=== PATIENT | female | born 1950 | race Caucasian/White ===

== ENCOUNTER → 2019-02-20 | Outpatient (CLI) | payer MEDICARE | END | disposition home or self-care (01) | LOC: LABWHC1 11:48 | PROVIDERS: ATTEND Physician Assistant | DX: M25.532 Pain in left wrist (principal) | CPT/HCPCS: 36415; 82306 ==

== ENCOUNTER → 2019-12-04 | Outpatient (CLI) | payer MEDICARE ==
--- NOTE | 2019-12-05 04:03 | MR ---
EXAMINATION TYPE: MR cervical spine wo con DATE OF EXAM: 12/04/2019 COMPARISON: None HISTORY: Neck pain, tingling in left arm. Multiplanar multiecho imaging of the cervical spine was performed without contrast. There is narrowing of disc spaces from C3 to C7 with spurring of the endplates. There is no compressi on fracture. There is posterior small disc herniations from C3 to C7. There is multilevel cervical sp inal stenosis. Canal measures 6 mm at C4-5 and C5-6. The canal measures 6.5 mm at C6-7. The canal is 8 mm at C3-4. There is no evidence of edema in the cervical spinal cord. The brainstem is intact. The re is slight straightening of the cervical spine. There is no evidence of focal bone destruction. The re is no cervical paraspinal mass. IMPRESSION: Multilevel degenerative disc space narrowing and posterior cervical disc herniation and spur formatio n. Multilevel spinal stenosis as above. No fracture seen.
== END | disposition home or self-care (01) ==
LOC: RADMRIMAIN 19:01
PROVIDERS: ATTEND Internal Medicine
DX: M48.02 Spinal stenosis, cervical region (principal); M50.20 Other cervical disc displacement, unspecified cervical region
CPT/HCPCS: 72141

== ENCOUNTER → 2020-02-01 | Outpatient (CLI) | payer MEDICARE ==
[2020-02-01 13:59] VITALS: BP 123/83; PULSE 97; RESP 16; TEMP 98
--- NOTE | 2020-02-01 14:01 | P.PAINCN ---
History of Present Illness - Reason for Consult Consult date: 02/01/20 - History of Present Illness This is 69 years old female with a two-month history of severe neck pain with radiation to the left upper extremity associated with numbness and tingling sensation, she denies any initiating event and she reported that the pain and the numbness is constant and increases with any neck movement, interfere with the quality of life, she denies any fever or night sweats, she feels some weakness in her left upper extremity, she denies any change in the bowel movements or urination, any neck movement increased intensity of the pain, she reported that most of the pain is located on the left side of the cervical spine and radiated to the left upper extremity Past Medical History Past Medical History: GERD/Reflux, Osteoarthritis (OA), Sleep Apnea/CPAP/BIPAP Additional Past Medical History / Comment(s): Irregular heartbeat. CPAP use. Varicose veins. Herniated discs C3-C7. History of Any Multi-Drug Resistant Organisms: None Reported Past Surgical History: Appendectomy, Back Surgery, Hysterectomy, Tonsillectomy Additional Past Surgical History / Comment(s): Varicose veins procedure, bilateral rotator cuff repair, spinal surgery of L3-4 and L4-5, bilateral cataract surgery. Past Anesthesia/Blood Transfusion Reactions: No Reported Reaction Past Psychological History: Anxiety Smoking Status: Former smoker Past Alcohol Use History: Occasional Additional Past Alcohol Use History / Comment(s): Smoked on and off for 25 yrs, currently on Chantix. Past Drug Use History: None Reported - Past Family History Father Family Medical History: Cancer Additional Family Medical History / Comment(s): Lung Cancer. Mother Family Medical History: Cancer Additional Family Medical History / Comment(s): Lung Cancer. Medications and Allergies Home Medications Medication Instructions Recorded Confirmed Type Cetirizine HCl 10 mg PO DAILY 01/27/20 01/27/20 History Diltiazem HCl [Diltiazem HCl 24Hr 180 mg PO DAILY 01/27/20 01/27/20 History ER] Pantoprazole Sodium [Protonix] 20 mg PO DAILY 01/27/20 01/27/20 History Varenicline [Chantix Continuing 1 mg PO BID 01/27/20 01/27/20 History Pack] Allergies Allergy/AdvReac Type Severity Reaction Status Date / Time acetaminophen [From Percocet] Allergy Rash/Hives Verified 01/27/20 14:28 oxycodone [From Percocet] Allergy Rash/Hives Verified 01/27/20 14:28 Sulfa (Sulfonamide Allergy Rash/Hives Verified 01/27/20 14:27 Antibiotics) Physical Exam Physical Examinations : -Constitutiona : Cooperative , not in acute distress . -HEENT : nech : supple , no Lymphadenopathy , normal thyroid size . : eyes : no ptosis , no icterus, no photophobia . - neurologic : Cranial nerve II to XII intact , no focal neurological deffecit . -psychatric : alert , oriented X 3 , appropriate affect , intact judgment and insight . -Lymphatic : no Lymphadenopathy . - musculoskeltal : Cervical Spine motor stregnth in the deltoid and biceps, 5/5 right side , 4/5 Left side motor stregnth biceps and the wrist extensors 5/5 right side ,4/5 left side . motor stregnth in the triceps muscle . 5/5 Right side , 4/5 Left side deep tendon reflexes normal at the biceps , normal at Brachioradialis , normal at triceps. cervical facet loading test= Positive Bilaterally Spurling test= positive bilaterally. Neck distraction test= positive bilaterally. Delicia sign= positive bilaterally. Lumber spine moter stegnth lower extremities ,thigh and legs 5/5 Right side , 5/5 Left side Results Comments: MRI of the cervical spine multilevel cervical spinal stenosis multilevel cervical disc herniation Assessment and Plan Plan: Assessment and plan=1-cervical radiculopathy. 2-cervical herniated disc disease. 3-cervical degenerative disc disease. 4-cervical spondylosis with cervical facet arthropathy (as per physical examination ). And could benefit from cervical epidural steroid injection at C7-T1 (left paramedian approach ) Time with Patient: Greater than 30 PQRS Measure Charge Sheet Measure #130: Documentation of Current Meds in Medical Chart: Patient's medications documented in chart Measure #226: Tobacco Use: Screen & Cessation Intervention: Pt screened for tobacco use AND intervention given Measure #111: Pneumonia Vaccination: Pneumococcal vaccine administered or previously received Measure #47: Advance Care Plan: Advance care planning discussed & documented, pt chose/unable to give Measure #412: Opioid Treatment Agreement: No documentation of signed opioid treatment agreement Measure #408: Opioid Therapy Follow-up Evaluation: Patient had NO f/u eval minimum every 3 months during opioid therapy Measure #317: Preventitive Care & Scrn High Bld Press & F/U: Normal blood pressure, f/u not required Measure #128: Body Mass Index (BMI) Screening & Follow-up: BMI documented within normal parameters Measure #131: Pain Assessment & Follow-up: Pain positive & plan documented, Follow-up scheduled Measure #431: Unhealthy Alcohol Use Preventative Care & Scrn: Patient not identified as an unhealthy alcohol user PQRS Narrative: Pain Intensity [Neck] 4 Scale Used Numeric (1 - 10) Hx Alcohol Use (MH) Yes Home Medications: Ambulatory Orders Cetirizine HCl 10 mg PO DAILY 01/27/20 Diltiazem HCl [Diltiazem HCl 24Hr ER] 180 mg PO DAILY 01/27/20 Pantoprazole Sodium [Protonix] 20 mg PO DAILY 01/27/20 Varenicline [Chantix Continuing Pack] 1 mg PO BID 01/27/20
== END | disposition home or self-care (01) ==
LOC: PNWHC3 13:29
PROVIDERS: ATTEND Specialist
DX: M50.10 Cervical disc disorder with radiculopathy, unspecified cervical region (principal); M47.22 Other spondylosis with radiculopathy, cervical region; G47.33 Obstructive sleep apnea (adult) (pediatric); M19.90 Unspecified osteoarthritis, unspecified site; K21.9 Gastro-esophageal reflux disease without esophagitis; Z99.89 Dependence on other enabling machines and devices; Z79.891 Long term (current) use of opiate analgesic; Z79.899 Other long term (current) drug therapy; Z88.2 Allergy status to sulfonamides; Z88.5 Allergy status to narcotic agent; Z88.8 Allergy status to other drugs, medicaments and biological substances
CPT/HCPCS: 99211

== ENCOUNTER → 2020-08-24 | Outpatient (CLI) | payer MEDICARE ==
[2020-08-24 09:02] VITALS: BP 136/94; PULSE 93; RESP 18
--- NOTE | 2020-08-24 09:32 | P.PN ---
Subjective Progress Note Date: 08/24/20 This is follow up visit for this 70 years old female with most history of severe neck pain with radiation to the upper extremity associated with numbness and tingling sensation, pain when started used to be mainly on the left side but currently she is having pain and numbness on both sides, she denies any initiating event and she reported that the pain and the numbness is constant and increases with any neck movement, interfere with the quality of life, she denies any fever or night sweats, she feels some weakness in her left upper extremity, she denies any change in the bowel movements or urination, any neck movement increased intensity of the pain, she tried home exercises( stretching ) without any benefit, she tried chiropractics without any benefit, she tried ice and heat therapy without benefit and she tried medication Tylenol arthritis without any benefit dictating interfere with the quality of life Physical Examinations : -Constitutiona : Cooperative , not in acute distress . -HEENT : nech : supple , no Lymphadenopathy , normal thyroid size . : eyes : no ptosis , no icterus, no photophobia . - neurologic : Cranial nerve II to XII intact , no focal neurological deffecit . -psychatric : alert , oriented X 3 , appropriate affect , intact judgment and insight . -Lymphatic : no Lymphadenopathy . - musculoskeltal : Cervical Spine motor stregnth in the deltoid and biceps, 4/5 right side , 4/5 Left side motor stregnth biceps and the wrist extensors 4/5 right side ,4/5 left side . motor stregnth in the triceps muscle . 4/5 Right side , 4/5 Left side deep tendon reflexes normal at the biceps , normal at Brachioradialis , normal at triceps. cervical facet loading test= Positive Bilaterally Spurling test= positive bilaterally. Neck distraction test= positive bilaterally. Delicia sign= positive bilaterally. Lumber spine moter stegnth lower extremities ,thigh and legs 5/5 Right side , 5/5 Left side Results MRI of the cervical spine multilevel cervical spinal stenosis multilevel cervical disc herniation Assessment and plan=1-cervical radiculopathy. 2-cervical herniated disc disease. 3-cervical degenerative disc disease. 4-cervical spondylosis with cervical facet arthropathy (as per physical examination ). she could benefit from cervical epidural steroid injection at C6-7 OR C7-T1 PQRS Measure Charge Sheet Measure #130: Documentation of Current Meds in Medical Chart: Patient's medications documented in chart Measure #226: Tobacco Use: Screen & Cessation Intervention: Pt screened for tobacco use AND intervention given Measure #111: Pneumonia Vaccination: Pneumococcal vaccine administered or previously received Measure #47: Advance Care Plan: Advance care planning discussed & documented, pt chose/unable to give Measure #412: Opioid Treatment Agreement: No documentation of signed opioid treatment agreement Measure #408: Opioid Therapy Follow-up Evaluation: Patient had NO f/u eval minimum every 3 months during opioid therapy Measure #317: Preventitive Care & Scrn High Bld Press & F/U: Normal blood pressure, f/u not required Measure #128: Body Mass Index (BMI) Screening & Follow-up: BMI documented within normal parameters Measure #131: Pain Assessment & Follow-up: Pain positive & plan documented, Follow-up scheduled Measure #431: Unhealthy Alcohol Use Preventative Care & Scrn: Patient not identified as an unhealthy alcohol user PQRS Narrative: Objective - Vital Signs Vital signs: Vital Signs Temp Pulse 93 08/24/20 08:59 Resp 18 08/24/20 08:59 BP 136/94 08/24/20 08:59 Pulse Ox 97 08/24/20 08:59
== END ==
LOC: PNWHC3 08:50
PROVIDERS: ATTEND Specialist
DX: M50.10 Cervical disc disorder with radiculopathy, unspecified cervical region (principal); M47.22 Other spondylosis with radiculopathy, cervical region; M50.20 Other cervical disc displacement, unspecified cervical region; Z88.5 Allergy status to narcotic agent; Z88.2 Allergy status to sulfonamides
CPT/HCPCS: 99211

== ENCOUNTER 2020-09-20 10:03 | Day surgery (SDC) | payer MEDICARE ==
[2020-09-20 10:32] VITALS: RESP 16; TEMP 99.3
[2020-09-20] MEDS: LACTATED RINGERS 1,000 ML IV SCH ×2 (10:33→10:36)
[2020-09-20] MEDS ORDERED: MIDAZOLAM 2 MG/2 ML VIAL ONE (10:37)
[2020-09-20] MEDS ORDERED: DEXAMETHASONE SOD PHOSPHATE 10 MG/ML 1 ML VIAL ONE (10:37)
[2020-09-20] MEDS ORDERED: fentaNYL (PF) 50 MCG/ML 2 ML AMP ONE (10:37)
[2020-09-20] MEDS ORDERED: IOPAMIDOL M200 10 ML VIAL ONE (10:37)
--- NOTE | 2020-09-20 10:51 | P.PCN ---
Date of Procedure: 09/20/20 Surgeon: Edin Parr Pathology: none sent Condition: stable Disposition: PACU Description of Procedure: PROCEDURE 1. Cervical epidural steroid injection under fluoroscopic guidance, C7-T1 - Rt paramedian approach. 2. Cervical epidurogram. : PREOPERATIVE DIAGNOSIS: Cervical radiculopathy, cervical spondylosis without myelopathy POSTOPERATIVE DIAGNOSIS: : Same as above ANESTHESIA: Local anesthesia with 1% lidocaine and IV moderate conscious sedation with Versed and Fentanyl . EBL 0 PROCEDURE INDICATION: The patient with neck pain and radiculopathy unresponsive to conservative treatment consents for procedure. PROCEDURE DESCRIPTION / TECHNIQUE: The patient was seen and identified in the preoperative area. Risks, benefits, complications, including but not limited to infections ,bleeding , allergic reactions to the medications ,and not complete pain relief, and alternatives were discussed with the patient, the patient agreed to proceed with the procedure and signed the consent. Patient was taken to the OR and time out was completed. The patient was placed in the prone position on the procedure table. A pillow was placed under the patients chest to increase the flexion of the cervical spine . The cervical area was prepped and draped in the usual sterile fashion. Vital signs were closely monitored during the procedure. Conscious sedation was used during the procedure to decrease patients anxiety. Using anterior-posterior fluoroscopy, the C7-T1 interlaminar space was identified and the skin over this site was marked and then infiltrated with 1% lidocaine subcutaneously. Subsequently, a 20-gauge 3-1/2-inch Tuohy epidural needle was inserted and advanced toward the epidural space by means of loss of resistance to air technique and guided by AP and lateral fluoroscopy. The needle tip contacted the lamina of T1 vertebra first, then it was walked off bone and into the epidural space using the loss of to air and fluoroscopic guidance to identify the epidural space. The correct needle position in the epidural space was verified with the injection of 1 mL of the water soluble contrast dye Isovue and observing an excellent epidurogram with the epidural spread of the dye, after negative aspiration for blood and CSF and in the absence of paresthesias. Again after negative aspiration, 20 mg of Decadron was injected and a washout of epidurogram was seen. Needle was withdrawn intact, skin was cleansed, and bandages were applied. A copy of the needle placement picture was saved to the fluoroscopy machine.
[2020-09-20] MEDS ORDERED: IV FLUID CONTINUATION 1,000 ML IV ONE (10:54)
[2020-09-20 11:17] VITALS: BP 141/90; PULSE 85
--- NOTE | 2020-09-20 12:17 | FL ---
Fluoroscopy INDICATION: Pain FINDINGS: Fluoroscopy time: 5 seconds. Images obtained: 1. IMPRESSIONS: 1. Documentation of fluoroscopy.
== END 2020-09-20 11:35 | disposition home or self-care (01) ==
LOC: ORPAIN 10:03
PROVIDERS: ATTEND Anesthesiology
DX: M47.22 Other spondylosis with radiculopathy, cervical region (principal); F41.9 Anxiety disorder, unspecified
CPT/HCPCS: 62321; J2250; J1100; J3010; Q9966; 99152

== ENCOUNTER 2020-11-12 08:39 | Emergency (ER) | payer MEDICARE ==
[2020-11-12 09:01] VITALS: TEMP 98.2
[2020-11-12] MEDS ORDERED: SODIUM CHLORIDE 0.9% 1,000 ML IV STA (09:34)
[2020-11-12] MEDS ORDERED: LORazepam 1 MG TAB PO STA (09:35)
[2020-11-12] MEDS ORDERED: MECLIZINE 12.5 MG TAB PO STA (09:37)
[2020-11-12 10:33] LABS: Basophils % (A) 0 %; Eosinophils # (A) 0.1 k/uL (0-0.7); Eosinophils % (A) 2 %; HCT 43.6 % (34.0-46.0); HGB 13.7 gm/dL (11.4-16.0); Lymphocytes # (A) 1.4 k/uL (1.0-4.8); Lymphocytes % (A) 21 %; MCH 28.2 pg (25.0-35.0); MCHC 31.4 g/dL (31.0-37.0); MCV 89.9 fL (80.0-100.0); Mean Platelet Volume 8.1; Monocytes # (A) 0.5 k/uL (0-1.0); Monocytes % (A) 6 %; Neutrophils # (A) 4.7 k/uL (1.3-7.7); Neutrophils % (A) 68 %; Platelet Count 178 k/uL (150-450); RBC 4.85 m/uL (3.80-5.40); WBC 6.9 k/uL (3.8-10.6)
--- NOTE | 2020-11-12 10:39 | ED ---
General Adult HPI - General Chief complaint: Weakness Stated complaint: sent by pcp/syncope Time Seen by Provider: 11/12/20 09:05 Source: patient, RN notes reviewed Mode of arrival: ambulatory Limitations: no limitations - History of Present Illness Initial comments: 70-year-old female with a past medical history of GERD, cellulitis of the left leg, irregular heartbeat presents to the emergency room for lightheadedness. Patient states 4 days ago she was in her garage smoking with her friend. She started to get lightheaded and didn't feel well. She tried to walk into the house and passed out. When she woke up she was vomiting. States that she had diarrhea a few times. She continued to have diarrhea yesterday. She continued to be nauseous. She tried to call her doctor for an appointment yesterday but could not get in. She therefore went to the clinic today and they recommended she come to the emergency room for evaluation. Patient denies any chest pain. She was recently put on Lasix because of swelling in her feet and ankles. She does take diltiazem. Patient has no other complaints at this time including shortness of breath, chest pain, abdominal pain, nausea or vomiting, headache, or visual changes. - Related Data Home Medications Medication Instructions Recorded Confirmed Diltiazem HCl [Diltiazem HCl 24Hr 180 mg PO DAILY 01/27/20 11/12/20 ER] Pantoprazole Sodium [Protonix] 40 mg PO DAILY 01/27/20 11/12/20 Propranolol [Inderal] 20 mg PO TID PRN 02/17/20 11/12/20 Cetirizine HCl [Zyrtec] 10 mg PO DAILY 09/19/20 11/12/20 Ibuprofen [Motrin] 600 mg PO TID PRN 09/19/20 11/12/20 Montelukast [Singulair] 10 mg PO HS 09/19/20 11/12/20 Diphenox-Atrop 2.5-0.025 mg 1 tab PO Q4H PRN 11/12/20 11/12/20 [Lomotil] Fluticasone Nasal [place] [Flonase 1 spray EA NOSTRIL DAILY PRN 11/12/20 11/12/20 Nasal [place]] Furosemide [Lasix] 20 mg PO DAILY PRN 11/12/20 11/12/20 Hydrocortisone Cream 1 applic TOPICAL BID PRN 11/12/20 11/12/20 [Hydrocortisone 2.5% Cream] Allergies Allergy/AdvReac Type Severity Reaction Status Date / Time oxycodone [From Percocet] Allergy Rash/Hives Verified 11/12/20 10:32 Sulfa (Sulfonamide Allergy Rash/Hives Verified 11/12/20 10:32 Antibiotics) HISTAMINE Allergy Rash/Hives Uncoded 11/12/20 09:01 Review of Systems ROS Statement: Those systems with pertinent positive or pertinent negative responses have been documented in the HPI. ROS Other: All systems not noted in ROS Statement are negative. Past Medical History Past Medical History: GERD/Reflux, Musculoskeletal Disorder, Osteoarthritis (OA), Skin Disorder, Sleep Apnea/CPAP/BIPAP Additional Past Medical History / Comment(s): RECENT CELLULITIS OF LEFT LEG. Irregular heartbeat. CPAP use. Varicose veins. Herniated discs C3-C7. History of Any Multi-Drug Resistant Organisms: None Reported Past Surgical History: Appendectomy, Back Surgery, Hysterectomy, Tonsillectomy Additional Past Surgical History / Comment(s): Varicose veins procedurE. PAIN PROCEDURES. Bilateral rotator cuff repair. Spinal surgery of L3-4 and L4-5. Bilateral cataract surgery, STILL WEARS CONTACT IN RIGHT EYE. Past Anesthesia/Blood Transfusion Reactions: No Reported Reaction Past Psychological History: Anxiety Smoking Status: Current every day smoker Past Alcohol Use History: None Reported Past Drug Use History: None Reported - Past Family History Father Family Medical History: Cancer Additional Family Medical History / Comment(s): Lung Cancer. Mother Family Medical History: Cancer Additional Family Medical History / Comment(s): Lung Cancer. General Exam Limitations: no limitations Course Vital Signs 11/12/20 08:58 Temperature 98.2 F Pulse Rate 78 Respiratory 20 Rate Blood Pressure 143/91 O2 Sat by Pulse 99 Oximetry EKG Findings - EKG Comments: EKG Findings:: NSR, vent rate 78, UT int 158, QTc 451 Medical Decision Making - Medical Decision Making Those are stable. Patient is well-appearing. HPI and physical exam as documented. Again no chest pain or shortness of breath. Vitals unremarkable. No ischemic changes. CBC unremarkable. Mild hypokalemia noted on CMP, replaced orally. Urinalysis is negative. Garcia negative. CT brain shows no evidence for acute cranial hemorrhage. There are some incidental nonacute findings which were discussed with her. Chest x-ray is unremarkable. She is requesting discharge. Patient has an appointment with her primary care provider on Saturday and an echo scheduled for one week from now. She has good outpatient follow-up. She is not having any chest pain or breath. She will return here for any worsening symptoms. - Lab Data Result diagrams: 11/12/20 10:15 11/12/20 10:15 Lab Results 11/12/20 11/12/20 11/12/20 Range/Units 10:15 10:15 10:15 WBC 6.9 (3.8-10.6) k/uL RBC 4.85 (3.80-5.40) m/uL Hgb 13.7 (11.4-16.0) gm/dL Hct 43.6 (34.0-46.0) % MCV 89.9 (80.0-100.0) fL MCH 28.2 (25.0-35.0) pg MCHC 31.4 (31.0-37.0) g/dL RDW 14.0 (11.5-15.5) % Plt Count 178 (150-450) k/uL MPV 8.1 Neutrophils % 68 % Lymphocytes % 21 % Monocytes % 6 % Eosinophils % 2 % Basophils % 0 % Neutrophils # 4.7 (1.3-7.7) k/uL Lymphocytes # 1.4 (1.0-4.8) k/uL Monocytes # 0.5 (0-1.0) k/uL Eosinophils # 0.1 (0-0.7) k/uL Basophils # 0.0 (0-0.2) k/uL PT 9.4 (9.0-12.0) sec INR 0.9 (<1.2) APTT 22.4 (22.0-30.0) sec Sodium (137-145) mmol/L Potassium (3.5-5.1) mmol/L Chloride (98-107) mmol/L Carbon Dioxide (22-30) mmol/L Anion Gap mmol/L BUN (7-17) mg/dL Creatinine (0.52-1.04) mg/dL Est GFR (CKD-EPI)AfAm (>60 ml/min/1.73 sqM) Est GFR (CKD-EPI)NonAf (>60 ml/min/1.73 sqM) Glucose (74-99) mg/dL Calcium (8.4-10.2) mg/dL Magnesium (1.6-2.3) mg/dL Total Bilirubin (0.2-1.3) mg/dL AST (14-36) U/L ALT (4-34) U/L Alkaline Phosphatase (38-126) U/L Troponin I (0.000-0.034) ng/mL Total Protein (6.3-8.2) g/dL Albumin (3.5-5.0) g/dL Urine Color Yellow Urine Appearance Clear (Clear) Urine pH 7.0 (5.0-8.0) Ur Specific [place] 1.010 (1.001-1.035) Urine Protein Negative (Negative) Urine Glucose (UA) Negative (Negative) Urine Ketones Negative (Negative) Urine Blood Negative (Negative) Urine Nitrite Negative (Negative) Urine Bilirubin Negative (Negative) Urine Urobilinogen <2.0 (<2.0) mg/dL Ur Leukocyte Esterase Trace H (Negative) Urine RBC <1 (0-5) /hpf Urine WBC 1 (0-5) /hpf Ur Squamous Epith Cells 1 (0-4) /hpf Urine Mucus Occasional H (None) /hpf Coronavirus (PCR) (Not Detectd) 11/12/20 11/12/20 11/12/20 Range/Units 10:15 10:15 10:15 WBC (3.8-10.6) k/uL RBC (3.80-5.40) m/uL Hgb (11.4-16.0) gm/dL Hct (34.0-46.0) % MCV (80.0-100.0) fL MCH (25.0-35.0) pg MCHC (31.0-37.0) g/dL RDW (11.5-15.5) % Plt Count (150-450) k/uL MPV Neutrophils % % Lymphocytes % % Monocytes % % Eosinophils % % Basophils % % Neutrophils # (1.3-7.7) k/uL Lymphocytes # (1.0-4.8) k/uL Monocytes # (0-1.0) k/uL Eosinophils # (0-0.7) k/uL Basophils # (0-0.2) k/uL PT (9.0-12.0) sec INR (<1.2) APTT (22.0-30.0) sec Sodium 139 (137-145) mmol/L Potassium 3.2 L (3.5-5.1) mmol/L Chloride 105 (98-107) mmol/L Carbon Dioxide 28 (22-30) mmol/L Anion Gap 6 mmol/L BUN 8 (7-17) mg/dL Creatinine 0.42 L (0.52-1.04) mg/dL Est GFR (CKD-EPI)AfAm >90 (>60 ml/min/1.73 sqM) Est GFR (CKD-EPI)NonAf >90 (>60 ml/min/1.73 sqM) Glucose 109 H (74-99) mg/dL Calcium 9.8 (8.4-10.2) mg/dL Magnesium 1.8 (1.6-2.3) mg/dL Total Bilirubin 1.0 (0.2-1.3) mg/dL AST 48 H (14-36) U/L ALT 43 H (4-34) U/L Alkaline Phosphatase 111 (38-126) U/L Troponin I <0.012 (0.000-0.034) ng/mL Total Protein 6.7 (6.3-8.2) g/dL Albumin 4.0 (3.5-5.0) g/dL Urine Color Urine Appearance (Clear) Urine pH (5.0-8.0) Ur Specific [place] (1.001-1.035) Urine Protein (Negative) Urine Glucose (UA) (Negative) Urine Ketones (Negative) Urine Blood (Negative) Urine Nitrite (Negative) Urine Bilirubin (Negative) Urine Urobilinogen (<2.0) mg/dL Ur Leukocyte Esterase (Negative) Urine RBC (0-5) /hpf Urine WBC (0-5) /hpf Ur Squamous Epith Cells (0-4) /hpf Urine Mucus (None) /hpf Coronavirus (PCR) Not Detected (Not Detectd) Disposition Clinical Impression: Syncope, Nausea vomiting and diarrhea Disposition: HOME SELF-CARE Condition: Good Instructions (If sedation given, give patient instructions): Syncope (ED) Additional Instructions: Please follow-up with your doctor on Saturday as scheduled. Return to the emergency room for worsening symptoms. Is patient prescribed a controlled substance at d/c from ED?: No Referrals: Josh Alba MD [Primary Care Provider] - 1-2 days Time of Disposition: 12:19
[2020-11-12 10:40] LABS: Appearance,Urine Clear (Clear); Bilirubin,Urine Negative (Negative); Blood,Urine Negative (Negative); Color,Urine Yellow; Glucose,Urine (UA) Negative (Negative); Ketones,Urine Negative (Negative); Leukocyte Esterase,Urine Trace (Negative); Mucus,Urine Occasional /hpf; Nitrite,Urine Negative (Negative); Protein,Urine Negative (Negative); RBC,Urine <1 /hpf (0-5); Squamous Epithelial Cell,Urine 1 /hpf (0-4); Urobilinogen,Urine <2.0 mg/dL (<2.0); WBC,Urine 1 /hpf (0-5)
[2020-11-12 10:42] LABS: ALT 43 U/L (4-34); AST 48 U/L (14-36); African American GFR (CKD) >90 (>60 ml/min/1.73 sqM); Alkaline Phosphatase 111 U/L (38-126); Anion Gap 6 mmol/L; Blood Urea Nitrogen 8 mg/dL (7-17); Calcium 9.8 mg/dL (8.4-10.2); Carbon Dioxide 28 mmol/L (22-30); Chloride 105 mmol/L (98-107); Glucose 109 mg/dL (74-99); Magnesium 1.8 mg/dL (1.6-2.3); Non-African American GFR(CKD) >90 (>60 ml/min/1.73 sqM); Potassium 3.2 mmol/L (3.5-5.1); Sodium 139 mmol/L (137-145); Total Protein 6.7 g/dL (6.3-8.2)
[2020-11-12 10:43] LABS: INR 0.9 (<1.2); Partial Thromboplastin Time 22.4 sec (22.0-30.0); Prothrombin Time 9.4 sec (9.0-12.0)
[2020-11-12] MEDS ORDERED: POTASSIUM CHLORIDE ER 20 MEQ TAB.ER PO STA (10:58)
--- NOTE | 2020-11-12 11:32 | CT ---
EXAMINATION TYPE: CT brain [place] DATE OF EXAM: 11/12/2020 COMPARISON: None HISTORY: syncope TECHNIQUE: CT scan of the head without contrast CT DLP: 1257.7 mGycm Automated exposure control for dose reduction was used. FINDINGS: No evidence for acute intracranial hemorrhage, midline shift or mass effect. The askew-white matter di fferentiation is preserved. The CSF spaces and ventricles are normal in configuration. Tiny low atten uating lesion in the bilateral basal ganglia could BE related to artifact versus remote lacunar infar cts. No acute orbital, osseous or soft tissue abnormality. Paranasal sinuses and mastoid air cells are well aerated. Atherosclerotic calcifications are seen in the bilateral intracranial internal carotid arteries. There is straightening of the cervical spine curvature. The craniocervical junction is maintained. Ve rtebral body heights are normal. Posterior elements are acutely intact. Multilevel moderate severe narrowing of the intervertebral spaces and disc degenerative changes. Smal l disc osteophyte complex at C4-5, C5-6 and C6-7. Endplate degenerative changes throughout the cervic al spine seen. No significant soft tissue abnormality. The airways are patent. Lung apices demonstrate numerable bilateral tiny cysts and reticular nodular opacities. Parapharyngea l fat is maintained. Thyroid gland is not enlarged however appears heterogeneous. Normal atherosclero tic calcification seen in the arch of the aorta. IMPRESSION: NO EVIDENCE FOR ACUTE INTRACRANIAL HEMORRHAGE, MIDLINE SHIFT OR MASS EFFECT. NO EVIDENCE FOR ACUTE FRACTURE OR DISLOCATION THE CERVICAL SPINE. SEE BODY OF REPORT FOR INCIDENTALS REGARDING BRAIN, CERVICAL SPINE AND UPPER LUNGS.
--- NOTE | 2020-11-12 11:44 | XR ---
EXAMINATION TYPE: XR chest 2V DATE OF EXAM: 11/12/2020 COMPARISON: NONE HISTORY: 70 years Female. STUDY INDICATION GIVEN: Weakness . TECHNIQUE: Frontal and lateral chest radiographs. IMPRESSION: No focal airspace disease, pneumothorax or pleural effusion. Normal cardiomediastinal silhouette. No acute osseous abnormality. Surgical clips seen in the right upper quadrant. 3 densities over the right humerus could be related to prior surgery. Correlate with history.
[2020-11-12 12:45] VITALS: BP 184/96; PULSE 80; RESP 18
== END 2020-11-12 12:44 | disposition home or self-care (01) ==
LOC: EC 08:39
DX: R55 Syncope and collapse (principal); R11.2 Nausea with vomiting, unspecified; R19.7 Diarrhea, unspecified; K21.9 Gastro-esophageal reflux disease without esophagitis; M19.90 Unspecified osteoarthritis, unspecified site; F41.9 Anxiety disorder, unspecified; F17.200 Nicotine dependence, unspecified, uncomplicated; Z88.2 Allergy status to sulfonamides; Z88.5 Allergy status to narcotic agent; Z90.49 Acquired absence of other specified parts of digestive tract; Z90.710 Acquired absence of both cervix and uterus; Z90.89 Acquired absence of other organs; Z79.899 Other long term (current) drug therapy; Z20.822 Contact with and (suspected) exposure to COVID-19
CPT/HCPCS: 36415; 70450; 71046; 72125; 80053; 81001; 83735; 84484; 85025; 85610; 85730; 87635; 93005; 96360; 99284

== ENCOUNTER → 2021-08-04 | Outpatient (CLI) | payer MEDICARE ==
--- NOTE | 2021-08-04 11:25 | CTL ---
EXAMINATION TYPE: CT Low Dose Lung DATE OF EXAM ORDERED: 08/04/2021 HISTORY: 71 year-old female Z87.891, personal history of tobacco use. Lung cancer screening CT DLP: 53.[address] CTDI: 1.70 mGy Automated exposure control for dose reduction was used. SCREENING VISIT: Baseline COMPARISON: Radiograph 11/12/2020 TECHNIQUE: Low dose computed tomography scan was performed through the chest with coronal and sagitta l reconstructions. CT DIAGNOSTIC QUALITY: Satisfactory FINDINGS: Heart normal size without pericardial effusion. Aorta normal caliber with minimal atherosclerotic arch calcifications and conventional arch vessel br anching anatomy. Scattered nonenlarged mediastinal lymph nodes are present measuring up to 6 mm in the paratracheal re gion. There are bilateral breast implants are noted. Scattered mild to moderate centrilobular emphysema. Mild dependent hazy atelectasis bilaterally along with additional areas of strandy scarring or atelectasis. Minimal biapical pleural parenchymal scarr ing. No consolidation or pleural effusion. 4 mm subpleural pulmonary nodule periphery of the left lower lung, axial image 179. 3 mm peripheral left lower lobe pulmonary nodule, axial image 175. No consolidation or pleural effusion. Visualized upper abdomen shows cholecystectomy clips. Prominent ingested debris and fluid within the stomach. Bones: Suture anchors right humeral head. Rotator cuff surgery. Mild degenerative disc disease mid to lower thoracic spine. IMPRESSION: 1. COPD with mild to moderate emphysema and scattered areas of atelectasis or scarring. Recommend sm oking cessation. 2. A couple pulmonary nodules on the left measuring 4 mm and 3 mm on baseline screening. CT LUNG RAD AND CT CHEST RECOMMENDATION: Lung-Rad 2 Benign Appearance or Behavior: Continue annual sc reening with LDCT in 12 months. S Modifier (other clinically significant findings): None
== END | disposition home or self-care (01) ==
LOC: RADCTMAIN 07:03
PROVIDERS: ATTEND Family Medicine
DX: Z12.2 Encounter for screening for malignant neoplasm of respiratory organs (principal); J43.9 Emphysema, unspecified; R91.8 Other nonspecific abnormal finding of lung field; Z87.891 Personal history of nicotine dependence
CPT/HCPCS: 71271

== ENCOUNTER → 2022-10-02 | Outpatient (CLI) | payer MEDICARE ==
--- NOTE | 2022-10-03 00:36 | MR ---
EXAMINATION TYPE: MR cervical spine wo con DATE OF EXAM: 10/02/2022 INDICATION: Patient age: Female; 72 years old; Reason for study: M47.812 SPONDYLOSIS W/O MYELOPATHY OR RADICULOPATH; PHH. Neck pain COMPARISON: 12/04/2019. TECHNIQUE: Multi planar, multi sequence imaging was performed utilizing: T1-weighted, T2-weighted, an d turbo inversion recovery imaging of the cervical spine. IV Contrast: None FINDINGS: Alignment: The cervical vertebral bodies have preserved heights. Kyphosis of the curvature of the cer vical spine. Bones: Scattered Modic endplate changes with osteophytes and disc space narrowing. Multilevel degener ative disc disease is noted and most pronounced at the through C3 through C6 vertebral levels. Cord: The spinal cord is unremarkable with regards to their signal intensity and morphology. Discs: Multilevel disc desiccation is present. C2-C3: No significant disc pathology. The spinal canal is patent. Bilateral facet and uncovertebral joint arthropathy are present with mild bilateral neural foraminal stenosis. C3-C4: A disc osteophyte complex is present which minimally narrows the ventral subarachnoid space. Bilateral facet and uncovertebral joint arthropathy are present with severe bilateral neural foramin al stenosis. C4-C5: A disc osteophyte complex is present with mild to moderate spinal canal stenosis. Bilateral f acet and uncovertebral joint arthropathy are present with severe bilateral neural foraminal stenosis. C5-C6: A disc osteophyte complex is present with mild spinal canal stenosis. Bilateral facet and unc overtebral joint arthropathy are present with severe bilateral neural foraminal stenosis. C6-C7: A disc osteophyte complex is present with moderate to severe spinal canal stenosis. Bilateral facet and uncovertebral joint arthropathy are present with mild bilateral neural foraminal stenosis. C7-T1: No significant disc pathology. The spinal canal is patent. No neural foraminal stenosis. Other: None. IMPRESSION: Overall findings are similar to 2019. Multilevel degeneration changes worse at C6-C7 with moderate to severe spinal canal stenosis. There i s multilevel severe neural foraminal stenosis throughout spine is described above.
== END | disposition home or self-care (01) ==
LOC: RADMRIMAIN 18:17
PROVIDERS: ATTEND Physical Medicine & Rehabilitation
DX: M47.22 Other spondylosis with radiculopathy, cervical region (principal); M50.121 Cervical disc disorder at C4-C5 level with radiculopathy; M50.122 Cervical disc disorder at C5-C6 level with radiculopathy; M50.123 Cervical disc disorder at C6-C7 level with radiculopathy; M43.12 Spondylolisthesis, cervical region
CPT/HCPCS: 72141

== ENCOUNTER → 2022-10-12 | Outpatient (CLI) | payer MEDICARE ==
--- NOTE | 2022-10-12 14:42 | CTL ---
EXAMINATION TYPE: CT Low Dose Lung DATE OF EXAM ORDERED: 10/12/2022 HISTORY: . Lung cancer screening CT DLP: 59.[address] CTDI: 1.80 mGy Automated exposure control for dose reduction was used. SCREENING VISIT: Subsequent, first follow-up COMPARISON: 08/04/2021 TECHNIQUE: Low dose computed tomography scan was performed through the chest at 1 mm thick sections a nd reconstructed images in the coronal plane at [address] DIAGNOSTIC QUALITY: Satisfactory FINDINGS: LUNG NODULES: Present, detailed below: 1. Minimal pleural thickening may be along the anterior lateral left lung base. Series 4 image 213. T his may be smaller than comparison. 2. Previous left lateral lung field nodule is not identified. LUNGS: COPD: Severity: Mild Fibrosis: Severity: None Lymph nodes: None Other findings: None RIGHT PLEURAL SPACE: Effusion: None Calcification: None Thickening: None Pneumothorax: None LEFT PLEURAL SPACE: Effusion: None Calcification: None Thickening: None Pneumothorax: None HEART: Heart Size: Normal Coronary calcification: Minimal Pericardial effusion: None OTHER FINDINGS: Upper abdomen: Bony thorax: Normal Supraclavicular region: Normal Other: Ascending thoracic aorta at the level the main pulmonary artery measures 3.5 cm. The main pul monary artery at the bifurcation measures 3.1 cm. Bilateral breast prostheses are present. IMPRESSION: 1. No suspicious change in nodules. 2. No suspicious changes to suggest primary or metastatic disease. FOLLOW UP CT CHEST RECOMMENDATION: Follow-up low-dose CT chest [address] LUNG RAD: Lung-Rad 2 Benign Appearance or Behavior
== END | disposition home or self-care (01) ==
LOC: RADCTMAIN 06:12
PROVIDERS: ATTEND Family Medicine
DX: Z12.2 Encounter for screening for malignant neoplasm of respiratory organs (principal); R91.8 Other nonspecific abnormal finding of lung field
CPT/HCPCS: 71271

== ENCOUNTER → 2022-10-31 | Day surgery (SDC) | payer MEDICARE ==
[~2022-10-31] MED LIST: LACTATED RINGERS 1,000 ML IV SCH; LIDOCAINE 1% (10MG/ML) FOR IV START INTRADERMA PRN; LIDOCAINE 2% INJ 20 MG/ML (2 ML VIAL) ONE; PROPOFOL 10 MG/ML 20 ML VIAL IV ONE
[2022-10-31 07:18] VITALS: RESP 16; TEMP 97
--- NOTE | 2022-10-31 08:19 | P.PCN ---
Date of Procedure: 10/31/22 Procedure(s) Performed: Brief history: Patient is a pleasant 72-year-old white female scheduled for an elective upper endoscopy as well as colonoscopy as a part of evaluation of long-standing history of GERD/abdominal bloating and belching and screening for colon cancer Procedure performed: Esophagogastroduodenoscopy with biopsy Colonoscopy with biopsy Preoperative diagnosis: Long-standing history of GERD/abdominal bloating and belching Screening for colon cancer Anesthesia: MAC Procedure: After informed consent was obtained from the patient was brought into the endoscopy unit and IV sedation was administered by anesthesia under continuous monitoring. Initially upper endoscopy was done. The Olympus GF 160 video endoscope was inserted inserted into the mouth and esophagus intubated without any difficulty and was gradually advanced into the stomach and duodenum and carefully examined. The bulb and second part of the duodenum appeared normal. Biopsies were done from the duodenum to evaluate for Celiac disease. The scope was then withdrawn into the stomach adequately insufflated with air and upon careful examination the antrum had mild gastritis and biopsies were done from this area. Mucosa of the body, cardia and fundus appeared normal. The scope was then withdrawn into the esophagus. Small hiatal hernia noted. The GE junction was located at 36 cm to the incisors. It appeared irregular and there was a 5 mm tongue of Tate's appearing mucosa just proximal to the GE junction that was biopsied.. Rest of the esophagus appeared normal. Patient tolerated the procedure well. At this time the patient continued to remain sedation. Initial digital rectal examination was normal. Olympus CF 160 video colonoscope was then inserted into the rectum and gradually advanced to the cecum without any difficulty. Careful examination was performed as the scope was gradually being withdrawn. The prep was excellent. The cecum, appeared normal. In the Ascending colon there was a 3 mm polyp that was removed by cold biopsy. Rest of the ascending colon, transverse colon, descending colon, sigmoid colon and rectum appeared normal. In the rectum there were 2 polyps measuring 4 mm in size that was removed by cold biopsy. Retroflexion was performed in the rectum and no lesions were noted. Patient tolerated the procedure well. Impression: 1. 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 Colonoscopy revealed 3 mm ascending colon polyp and 4 mm 2 rectal polyps status post cold biopsy Recommendations: Findings of this examination were discussed with the patient as well as her fami ly. She was advised to follow with the biopsy results. If the biopsy result adenoma she can have a repeat colonoscopy in 5 years.
[2022-10-31 08:44] VITALS: BP 146/95; PULSE 84
== END ==
LOC: ORWHC2ENDO 06:59
PROVIDERS: ATTEND Internal Medicine Gastroenterology
DX: Z12.11 Encounter for screening for malignant neoplasm of colon (principal); K29.50 Unspecified chronic gastritis without bleeding; K21.9 Gastro-esophageal reflux disease without esophagitis; K44.9 Diaphragmatic hernia without obstruction or gangrene; K22.70 Barrett's esophagus without dysplasia; K62.1 Rectal polyp; D12.2 Benign neoplasm of ascending colon; D72.820 Lymphocytosis (symptomatic); G47.33 Obstructive sleep apnea (adult) (pediatric); Z88.2 Allergy status to sulfonamides; Z79.84 Long term (current) use of oral hypoglycemic drugs; Z98.890 Other specified postprocedural states; Z99.89 Dependence on other enabling machines and devices; Z87.891 Personal history of nicotine dependence; Z79.1 Long term (current) use of non-steroidal anti-inflammatories (NSAID); Z79.899 Other long term (current) drug therapy
CPT/HCPCS: 88305; 43239; J2704; J2001; G0105; 45380

== ENCOUNTER → 2022-11-01 | Outpatient (CLI) | payer MEDICARE ==
[2022-11-02 02:07] LABS: Gliadin AB IgA, Deaminated Negative (Negative); Gliadin AB IgA, Unit 1.3 U/mL; Gliadin AB IgG, Deaminated Negative (Negative); Gliadin AB IgG, Unit 1.2 U/mL
== END | disposition home or self-care (01) ==
LOC: LABWHC1 14:02
PROVIDERS: ATTEND Internal Medicine Gastroenterology
DX: K21.9 Gastro-esophageal reflux disease without esophagitis (principal)
CPT/HCPCS: 36415; 83516

== ENCOUNTER 2024-08-16 11:40 | Inpatient (IN) | payer MEDICARE ==
--- NOTE | 2024-08-16 12:50 | ED ---
General Adult HPI - General Chief complaint: Shortness of Breath Stated complaint: RAFY Time Seen by Provider: 08/16/24 12:20 Source: patient, RN notes reviewed, old records reviewed Mode of arrival: ambulatory - History of Present Illness Initial comments: This is a 74-year-old female who has a past medical history significant for smoking. Patient states she comes in today because she started having difficulty breathing last night and her pulse ox at home was in the 70s. Lv freitas states today she woke up she continued to have difficulty breathing she denies any coughing or fever. Patient denies any chest pain or palpitations. Patient states she does have a little bit of a headache which is not normal for her. Patient denies numbness weakness. Patient denies any back pain. Patient has any abdominal pain. Patient denies any swelling to the legs or calf tenderness. Patient denies any long trips or travel. - Related Data Home Medications Medication Instructions Recorded Confirmed Pantoprazole Sodium [Protonix] 40 mg PO DAILY 01/27/20 10/30/22 dilTIAZem HCL [Diltiazem HCl 24Hr 180 mg PO DAILY 01/27/20 10/30/22 ER] Ibuprofen [Motrin] 600 mg PO TID PRN 09/19/20 10/30/22 Montelukast [Singulair] 10 mg PO DAILY 09/19/20 10/30/22 Diphenox-Atrop 2.5-0.025 mg 1 tab PO Q4H PRN 11/12/20 10/30/22 [Lomotil] Fluticasone Nasal [place] [Flonase 1 spray EA NOSTRIL DAILY PRN 11/12/20 10/30/22 Nasal [place]] Furosemide [Lasix] 20 mg PO DAILY PRN 11/12/20 10/30/22 Hydrocortisone Cream 1 applic TOPICAL BID PRN 11/12/20 10/30/22 [Hydrocortisone 2.5% Cream] FLUoxetine HCL [PROzac] 10 mg PO DAILY 10/30/22 10/30/22 Famotidine 40 mg PO DAILY 10/30/22 10/30/22 Nutrafol 4 tab PO DAILY 10/30/22 10/30/22 Pravastatin Sodium [Pravachol] 20 mg PO DAILY 10/30/22 10/30/22 Unk [place] Xl 2 tab PO DAILY 10/30/22 10/30/22 Varenicline [Chantix] 1 mg PO DAILY 10/30/22 10/30/22 Allergies Allergy/AdvReac Type Severity Reaction Status Date / Time Histamine H2 Inhibitors Allergy Rash/Hives Verified 08/16/24 12:23 nitrofurantoin Allergy Rash/Hives Verified 08/16/24 12:23 [From Macrobid] Sulfa (Sulfonamide Allergy Rash/Hives Verified 08/16/24 12:23 Antibiotics) Review of Systems ROS Statement: Those systems with pertinent positive or pertinent negative responses have been documented in the HPI. ROS Other: All systems not noted in ROS Statement are negative. Past Medical History Past Medical History: GERD/Reflux, Musculoskeletal Disorder, Osteoarthritis (OA), Skin Disorder, Sleep Apnea/CPAP/BIPAP Additional Past Medical History / Comment(s): Irregular heartbeat. CPAP use. Varicose veins. Herniated discs C3-C7. History of Any Multi-Drug Resistant Organisms: None Reported Past Surgical History: Appendectomy, Back Surgery, Hysterectomy, Tonsillectomy Additional Past Surgical History / Comment(s): Varicose veins procedurE. PAIN PROCEDURES. Bilateral rotator cuff repair. Spinal surgery of L3-4 and L4-5. Bilateral cataract surgery, STILL WEARS CONTACT IN RIGHT EYE. Past Anesthesia/Blood Transfusion Reactions: No Reported Reaction Past Psychological History: Anxiety Smoking Status: Current every day smoker Past Alcohol Use History: None Reported Past Drug Use History: Marijuana - Past Family History Father Family Medical History: Cancer Additional Family Medical History / Comment(s): Lung Cancer. Mother Family Medical History: Cancer Additional Family Medical History / Comment(s): Lung Cancer. General Exam - General Exam Comments Initial Comments: GENERAL: Patient is well-developed and well-nourished. Patient is nontoxic and well- hydrated and is in mild distress. ENT: Neck is soft and supple. No significant lymphadenopathy is noted. Oropharynx is clear. Moist mucous membranes. Neck has full range of motion without eliciting any pain. EYES: The sclera were anicteric and conjunctiva were pink and moist. Extraocular movements were intact and pupils were equal round and reactive to light. Eyelids were unremarkable. PULMONARY: Unlabored respirations. Patient has some coarse crackles bilaterally CARDIOVASCULAR: There is a regular rate and rhythm without any murmurs gallops or rubs. ABDOMEN: Soft and nontender with normal bowel sounds. SKIN: Skin is clear with no lesions or rashes and otherwise unremarkable. NEUROLOGIC: Patient is alert and oriented x3. Cranial nerves II through XII are grossly intact. Motor and sensory are also intact. Normal speech, volume and content. Symmetrical smile. MUSCULOSKELETAL: Normal extremities with adequate strength and full range of motion. LYMPHATICS: No significant lymphadenopathy is noted PSYCHIATRIC: Normal psychiatric evaluation. Course Vital Signs 08/16/24 08/16/24 08/16/24 12:20 13:00 13:08 Temperature 98.3 F Pulse Rate 103 H 98 104 H Respiratory 26 H Rate Blood Pressure 129/78 O2 Sat by Pulse 79 L Oximetry 08/16/24 13:23 Temperature Pulse Rate 107 H Respiratory 20 Rate Blood Pressure O2 Sat by Pulse 91 L Oximetry Medical Decision Making - Medical Decision Making EKG is interpreted by myself. EKG shows a sinus rhythm at 93 bpm. 34 qrs of 77 qt interval 341 qtc is 392. patient's ekg shows no st segment elevation or depression Was pt. sent in by a medical professional or institution (, PA, STITCHER STANDARD MACHINE, urgent care, hospital, or halfway...) When possible be specific @ -No Did you speak to anyone other than the patient for history (EMS, parent, family, police, friend...)? What history was obtained from this source @ -No Did you review nursing and triage notes (agree or disagree)? Why? @ -I reviewed and agree with nursing and triage notes Were old charts reviewed (outside hosp., previous admission, EMS record, old EKG, old radiological studies, urgent care reports/EKG's, halfway records)? Report findings @ -No old charts were reviewed Differential Diagnosis? @ -Differential Dyspnea: Coronary syndrome, arrhythmia, tamponade, asthma, COPD, pulmonary embolism, pneumonia, pneumothorax, pulmonary effusion, anaphylaxis, diabetic ketoacidosis, flailed chest, pulmonary contusion, diaphragmatic rupture, anemia, neuromuscular, this is not meant to be an all-inclusive list. EKG interpreted by me (3pts min.). @ -As above X-rays interpreted by me (1pt min.). @ -Chest x-ray shows bilateral pneumonia CT interpreted by me (1pt min.). @ -None done U/S interpreted by me (1pt. min.). @ -None done What testing was considered but not performed or refused? (CT, X-rays, U/S, labs)? Why? @ -None What meds were considered but not given or refused? Why? @ -None Did you discuss the management of the patient with other professionals (professionals i.e. , PA, ST[employer]ER STANDARD MACHINE, lab, RT, psych nurse, hospital social worker, area mechanic, teacher, geospatial program management officer, caser)? Give summary @ -I spoke with [facility] agreed to admit the patient to the patient recommending orders Was smoking cessation discussed for >3mins.? @ -No Was critical care preformed (if so, how long)? @ -No Were there social determinants of health that impacted care today? How? (Homelessness, low income, unemployed, alcoholism, drug addiction, transportation, low edu. Level, literacy, decrease access to med. care, alf, rehab)? @ -No Was there de-escalation of care discussed even if they declined (Discuss DNR or withdrawal of care, Hospice)? DNR status @ -No What co-morbidities impacted this encounter? (DM, HTN, Smoking, COPD, CAD, Cancer, CVA, ARF, Chemo, Hep., AIDS, mental health diagnosis, sleep apnea, morbid obesity)? @ -None Was patient admitted / discharged? Hospital course, mention meds given and route, prescriptions, significant lab abnormalities, going to OR and other pertinent info. @ -Patient was short of breath was on 6 L of oxygen and given a breathing treatment then she was satting about 90 to 91%. Patient also was given 2 g Rocephin for the pneumonia that showed up on the x-ray. Patient was also given steroids. Patient will be admitted to [facility] to consult the pulmonary Undiagnosed new problem with uncertain prognosis? @ -No Drug Therapy requiring intensive monitoring for toxicity (Heparin, Nitro, Insulin, Cardizem)? @ -No Were any procedures done? @ -No Diagnosis/symptom? @ -Bilateral pneumonia Acute, or Chronic, or Acute on Chronic? @ -Acute Uncomplicated (without systemic symptoms) or Complicated (systemic symptoms)? @ -Comp Side effects of treatment? @ -No Exacerbation, Progression, or Severe Exacerbation? @ -No Poses a threat to life or bodily function? How? (Chest pain, [place], [place], pneumonia, PE, COPD, DKA, ARF, appy, cholecystitis, CVA, Diverticulitis, Homicidal, Suicidal, threat to staff... and all critical care pts) @ -Yes this can lead to hypoxia and endorgan dysfunction - Lab Data Result diagrams: 08/16/24 12:59 08/16/24 12:59 Lab Results 08/16/24 08/16/24 08/16/24 Range/Units 12:59 12:59 12:59 WBC 13.60 H (4.50-10.00) 10*3/uL RBC 4.83 (4.10-5.20) 10*6/uL Hgb 13.7 (12.0-15.0) g/dL Hct 41.3 (37.2-46.3) % MCV 85.5 (80.0-97.0) fL MCH 28.4 (27.0-32.0) pg MCHC 33.2 (32.0-37.0) g/dL Plt Count 249 (140-440) 10*3/uL MPV 10.4 (9.5-12.2) fL Immature Gran % (Auto) 0.5 % Neutrophils % 89.1 % Lymphocytes % 6.0 % Monocytes % 3.9 % Eosinophils % 0.4 % Basophils % 0.1 % Immature Gran # 0.07 H (0.00-0.04) 10*3/uL Neutrophils # 12.12 H (1.80-7.70) 10*3/uL Lymphocytes # 0.82 L (0.90-5.00) 10*3/uL Monocytes # 0.53 (0.20-1.00) 10*3/uL Eosinophils # 0.05 (0.04-0.35) 10*3/uL Basophils # 0.01 (0.00-0.10) 10*3/uL PT 9.5 L (10.0-12.5) sec INR 0.8 (<1.2) APTT 23.9 (22.0-30.0) sec D-Dimer 0.61 H (<0.60) mg/L FEU VBG pH (7.31-7.41) VBG pCO2 (37-51) mmHg VBG HCO3 (24-28) mmol/L Sodium 134 L (137-145) mmol/L Potassium 3.5 (3.5-5.1) mmol/L Chloride 103 (98-107) mmol/L Carbon Dioxide 23 (22-30) mmol/L Anion Gap 8 mmol/L BUN 15 (7-17) mg/dL Creatinine 0.53 (0.52-1.04) mg/dL Est GFR (CKD-EPI)AfAm >90 (>60 ml/min/1.73 sqM) Est GFR (CKD-EPI)NonAf >90 (>60 ml/min/1.73 sqM) Glucose 102 H (74-99) mg/dL Plasma Lactic Acid Praneeth (0.7-2.0) mmol/L Calcium 9.6 (8.4-10.2) mg/dL Magnesium 1.9 (1.6-2.3) mg/dL Total Bilirubin 0.4 (0.2-1.3) mg/dL AST 40 H (14-36) U/L ALT 19 (4-34) U/L Alkaline Phosphatase 87 (38-126) U/L Troponin I (0.000-0.034) ng/mL NT-Pro-B Natriuret Pep 1580 pg/mL Total Protein 6.0 L (6.3-8.2) g/dL Albumin 3.6 (3.5-5.0) g/dL 08/16/24 08/16/24 08/16/24 Range/Units 12:59 12:59 12:59 WBC (4.50-10.00) 10*3/uL RBC (4.10-5.20) 10*6/uL Hgb (12.0-15.0) g/dL Hct (37.2-46.3) % MCV (80.0-97.0) fL MCH (27.0-32.0) pg MCHC (32.0-37.0) g/dL Plt Count (140-440) 10*3/uL MPV (9.5-12.2) fL Immature Gran % (Auto) % Neutrophils % % Lymphocytes % % Monocytes % % Eosinophils % % Basophils % % Immature Gran # (0.00-0.04) 10*3/uL Neutrophils # (1.80-7.70) 10*3/uL Lymphocytes # (0.90-5.00) 10*3/uL Monocytes # (0.20-1.00) 10*3/uL Eosinophils # (0.04-0.35) 10*3/uL Basophils # (0.00-0.10) 10*3/uL PT (10.0-12.5) sec INR (<1.2) APTT (22.0-30.0) sec D-Dimer (<0.60) mg/L FEU VBG pH 7.33 (7.31-7.41) VBG pCO2 46 (37-51) mmHg VBG HCO3 24 (24-28) mmol/L Sodium (137-145) mmol/L Potassium (3.5-5.1) mmol/L Chloride (98-107) mmol/L Carbon Dioxide (22-30) mmol/L Anion Gap mmol/L BUN (7-17) mg/dL Creatinine (0.52-1.04) mg/dL Est GFR (CKD-EPI)AfAm (>60 ml/min/1.73 sqM) Est GFR (CKD-EPI)NonAf (>60 ml/min/1.73 sqM) Glucose (74-99) mg/dL Plasma Lactic Acid Praneeth 1.4 (0.7-2.0) mmol/L Calcium (8.4-10.2) mg/dL Magnesium (1.6-2.3) mg/dL Total Bilirubin (0.2-1.3) mg/dL AST (14-36) U/L ALT (4-34) U/L Alkaline Phosphatase (38-126) U/L Troponin I <0.012 (0.000-0.034) ng/mL NT-Pro-B Natriuret Pep pg/mL Total Protein (6.3-8.2) g/dL Albumin (3.5-5.0) g/dL Disposition Clinical Impression: Bilateral pneumonia Disposition: ADMITTED IP TO THIS HOSP Referrals: Josh Alba MD [Primary Care Provider] - 1-2 days Time of Disposition: 13:59
[2024-08-16] MEDS: IPRATROPIUM-ALBUTEROL 3 ML NEB INHALATION STA (12:57)
[2024-08-16 13:17] LABS: Basophils # (A) 0.01 10*3/uL (0.00-0.10); Basophils % (A) 0.1 %; Eosinophils # (A) 0.05 10*3/uL (0.04-0.35); Eosinophils % (A) 0.4 %; HCT 41.3 % (37.2-46.3); HGB 13.7 g/dL (12.0-15.0); Lymphocytes # (A) 0.82 10*3/uL (0.90-5.00); MCH 28.4 pg (27.0-32.0); MCHC 33.2 g/dL (32.0-37.0); MCV 85.5 fL (80.0-97.0); Mean Platelet Volume 10.4 fL (9.5-12.2); Monocytes # (A) 0.53 10*3/uL (0.20-1.00); Monocytes % (A) 3.9 %; Neutrophils # (A) 12.12 10*3/uL (1.80-7.70); Neutrophils % (A) 89.1 %; Platelet Count 249 10*3/uL (140-440); RBC 4.83 10*6/uL (4.10-5.20); RDW 14.5 % (11.5-14.5)
[2024-08-16 13:18] LABS: VBG PH 7.33 (7.31-7.41)
--- NOTE | 2024-08-16 13:22 | XR ---
Chest, 2 view. CLINICAL INDICATION: Female, 74 years old with history of difficulty breathing COMPARISON: 11/12/2020 TECHNIQUE: PA and lateral views the chest are obtained. FINDINGS: There has been interval development of partial consolidation bilaterally. Hilar and right lower lobe infiltrate consistent with pneumonia. There is no pleural effusion or pneumothorax. The heart, pulmonary vasculature, mediastinum and leonarda appear normal. The osseous structures are intact. IMPRESSION: Acute cardiopulmonary disease most consistent with bilateral pneumonia. Short-term follow-up to [facility] is recommended. [facility], , 08/16/2024 1:20 PM
[2024-08-16 13:39] LABS: INR 0.8 (<1.2); Partial Thromboplastin Time 23.9 sec (22.0-30.0); Prothrombin Time 9.5 sec (10.0-12.5)
[2024-08-16 13:40] LABS: ALT 19 U/L (4-34); AST 40 U/L (14-36); African American GFR (CKD) >90 (>60 ml/min/1.73 sqM); Albumin 3.6 g/dL (3.5-5.0); Alkaline Phosphatase 87 U/L (38-126); Anion Gap 8 mmol/L; Blood Urea Nitrogen 15 mg/dL (7-17); Calcium 9.6 mg/dL (8.4-10.2); Carbon Dioxide 23 mmol/L (22-30); Chloride 103 mmol/L (98-107); Glucose 102 mg/dL (74-99); Magnesium 1.9 mg/dL (1.6-2.3); Non-African American GFR(CKD) >90 (>60 ml/min/1.73 sqM); Potassium 3.5 mmol/L (3.5-5.1); Sodium 134 mmol/L (137-145); Total Bilirubin 0.4 mg/dL (0.2-1.3)
[2024-08-16 13:48] LABS: NT-Pro-B-Type Natriuretic Pept 1580 pg/mL
[2024-08-16] MEDS ORDERED: IPRATROPIUM-ALBUTEROL 3 ML NEB INHALATION PRN (14:00)
[2024-08-16] MEDS ORDERED: NALOXONE 0.4 MG/ML 1 ML VIAL IVP PRN (14:00)
[2024-08-16] MEDS ORDERED: PNEUMONIA PROTOCOL UTILIZED 1 EACH MISC PO PRN (14:02)
[2024-08-16] MEDS: methylPREDNISolone SOD SUCCI 125 MG/2 ML VIAL IV STA (14:10)
[2024-08-16] MEDS: cefTRIAXone IN SWFI 1,000 MG/10 ML SYRINGE IVP STA ×2 (14:11→14:12)
[2024-08-16] MEDS: SODIUM CHLORIDE 0.9% 1,000 ML IV ONE (14:23)
[2024-08-16] MEDS: ACETAMINOPHEN TAB 500 MG TAB PO STA (14:39)
[2024-08-16] MEDS: AZITHROMYCIN 500 MG in SODIUM CHLORIDE 0.9% 250 ML IVPB STA (14:41)
[2024-08-16 15:03] LABS: Influenza A Not Detected (Not Detectd); Influenza B Not Detected (Not Detectd); RSV Not Detected (Not Detectd)
[2024-08-16] MEDS: NICOTINE 21MG/24HR PATCH TRANSDERM SCH (15:10)
--- NOTE | 2024-08-16 15:16 | P.HPIM ---
History of Present Illness H&P Date: 08/16/24 History of Presenting Illness: Patient is a pleasant 74-year-old female with a past medical history hypertension, hyperlipidemia, anxiety, COPD with continued nicotine dependence, and obstructive sleep apnea CPAP dependent. She presented to our facility with a chief complaint of shortness of breath. Patient reports sudden onset shortness of breath and dry nonproductive cough beginning yesterday evening and progressively worsening. She denies any fevers, chills, diaphoresis, chest pain, palpitations, or experiencing any numbness/tingling/weakness/swelling in her extremities. She does admit to recently flying back from [place] 2 weeks ago. She denies having any swelling in her legs or calf pain, denies any history of DVT or PEs. She does admit to being outside a little bit yesterday in the heat. Patient reports shortness of breath and cough continued throughout the entire night and worse this morning. She reports she checked her pulse ox at home and it was only reading in the 70s so her brought her to the hospital for evaluation. Upon arrival to our facility, patient underwent evaluation in the emergency department. Vital signs upon arrival show blood pressure 129/78, heart rate 103, respiratory rate 26, temp 98.3 F, and SpO2 of 79% on room air. EKG completed showing normal sinus rhythm at 93 bpm with T wave inversion in lateral lead aVL. Chest x-ray completed showing no acute cardiopulmonary process most consistent with bilateral multifocal pneumonia. Labs completed and reviewed. CBC showing leukocytosis with WBC count of 13.60, immature granulocytes of 0.07, and neutrophils of 12.12. BMP showing mild hyponatremia with sodium of 134 otherwise normal findings. Blood glucose 102. Lactic acid 1.4. Calcium 9.6. Magnesium 1.9. Liver profile showing elevated AST otherwise normal findings. Troponin was negative at less than 0.012 and proBNP was 1580. D-dimer was slightly elevated at 0.61 but normal with age correction. Review of systems: Pertinent positives and negatives as discussed in HPI, a complete review of systems was performed and all other systems are negative. Physical exam: Vital signs reviewed and stable. General: Nontoxic, no distress and appears stated age. Derm: Skin warm and dry, normal coloration for ethnicity. Head: Atraumatic, normocephalic and symmetric. Eyes: EOM's intact, no lid lag, and anicteric sclera Mouth: no lip lesions, mucus membranes moist Cardiovascular: regular rate and rhythm with normal S1S2, no murmur, positive posterior tibial pulses bilaterally, and cap refill < 2 seconds. Lungs: Respirations even, regular, and unlabored on room air. Lungs restricted and diminished, no rhonchi, rales, wheezes, or crackles noted. Abdominal: soft, nontender to palpation, no guarding, no appreciable organomegaly Ext: ROM intact. No gross muscle atrophy, no edema, no contractures Neuro: Speech clear, face symmetrical and CN II-XII grossly intact with no noted focal neuro deficits Psych: Alert and oriented to person, place, time, and situation. Appropriate and pleasant affect. Assessment and Plan of Care: Acute respiratory failure with hypoxia secondary to multifocal pneumonia and underlying COPD Multifocal pneumonia Asthma/COPD with acute exacerbation -Consult to Pulmonology, appreciate recommendations -Oxygenation to be administered and titrated as needed to maintain SPO2 equal to or greater than 90% -Patient currently on 15 L high flow nasal cannula with SpO2 of 87%, order placed for BiPAP with IPAP of 10, EPAP 5, FiO2 30% and to be titrated accordingly to keep SpO2 equal to or greater than 90%. -Telemetry monitoring. -Monitor pulse-oximetry -Duonebs scheduled 4 times daily and as needed for SOB and/or wheezing -Incentive Spirometry once weaned off of BiPAP -Steroids: Solu-Medrol 60 mg IVP every 6 hours -Antibiotics: Rocephin 2 g daily and Zithromax 500 mg daily -Follow-up on Cepheid 4 Plex viral panel -Follow-up on urine Legionella and blood culture results Hypertension History of cardiac arrhythmia/irregular heartbeat Monitor vital signs and continue daily medication regimen with benazepril 40 mg daily and diltiazem 180 mg daily. Anxiety with depression Continue daily medication regimen with fluoxetine 40 mg daily. GERD Continue daily medication regimen with Protonix 40 mg daily. Nicotine dependence Recommend smoking cessation and order placed for nicotine patch 21 mg daily. Obstructive sleep apnea Patient currently requiring continuous BiPAP once weaned off BiPAP order placed for patient to resume CPAP nightly and while napping. Data and imaging reviewed: As stated above in HPI The patient is admitted with an anticipated greater than 2 midnight stay for evaluation of acute respiratory failure with hypoxia requiring BiPAP secondary to multifocal pneumonia and underlying COPD CODE STATUS: Full code DVT prophylaxis: Lovenox Discussed with: Patient, patient's at bedside, RN, respiratory therapist, and ED physician Anticipated discharge date: Pending clinical course Anticipated discharge place: Home Patient was seen independently by Nurse Practitioner. This document was prepared using [employer] dictation software. Please allow for errors in lamination builder while rare they do occur. Sandro Potts NP rendered care for this patient independently, reviewed the findings and plan as documented in the note above and agree with plan. I did not physically speak with or examine the patient on this date. Past Medical History Past Medical History: GERD/Reflux, Musculoskeletal Disorder, Osteoarthritis (OA), Skin Disorder, Sleep Apnea/CPAP/BIPAP Additional Past Medical History / Comment(s): Irregular heartbeat. CPAP use. Varicose veins. Herniated discs C3-C7. History of Any Multi-Drug Resistant Organisms: None Reported Past Surgical History: Appendectomy, Back Surgery, Hysterectomy, Tonsillectomy Additional Past Surgical History / Comment(s): Varicose veins procedurE. PAIN PROCEDURES. Bilateral rotator cuff repair. Spinal surgery of L3-4 and L4-5. Bilateral cataract surgery, STILL WEARS CONTACT IN RIGHT EYE. Past Anesthesia/Blood Transfusion Reactions: No Reported Reaction Past Psychological History: Anxiety Smoking Status: Current every day smoker Past Alcohol Use History: None Reported Past Drug Use History: Marijuana - Past Family History Father Family Medical History: Cancer Additional Family Medical History / Comment(s): Lung Cancer. Mother Family Medical History: Cancer Additional Family Medical History / Comment(s): Lung Cancer. Medications and Allergies Home Medications Medication Instructions Recorded Confirmed Type dilTIAZem HCL [Diltiazem HCl 24Hr 180 mg PO DAILY 01/27/20 08/16/24 History ER] Famotidine 40 mg PO DAILY 10/30/22 08/16/24 History Benazepril HCl 40 mg PO DAILY 08/16/24 08/16/24 History FLUoxetine HCL [PROzac] 40 mg PO DAILY 08/16/24 08/16/24 History Ibuprofen [Motrin] 800 mg PO TID PRN 08/16/24 08/16/24 History Pantoprazole [Protonix] 40 mg PO DAILY 08/16/24 08/16/24 History Varenicline [Chantix Starter Pack] See Taper PO DIRECTED 08/16/24 08/16/24 History Allergies Allergy/AdvReac Type Severity Reaction Status Date / Time Histamine H2 Inhibitors Allergy Rash/Hives Verified 08/16/24 14:59 nitrofurantoin Allergy Rash/Hives Verified 08/16/24 14:59 [From Macrobid] Sulfa (Sulfonamide Allergy Rash/Hives Verified 08/16/24 14:59 Antibiotics) Physical Exam Vitals: Vital Signs Temp Pulse Resp BP Pulse Ox 08/16/24 13:23 107 H 20 91 L 08/16/24 13:08 104 H 08/16/24 13:00 98 08/16/24 12:20 98.3 F 103 H 26 H 129/78 79 L Intake and Output 08/15/24 08/16/24 08/16/24 22:59 06:59 14:59 Other: Weight 58.967 kg Results CBC & Chem 7: 08/16/24 12:59 08/16/24 12:59 Labs: Abnormal Lab Results - Last 24 Hours (Table) 08/16/24 08/16/24 08/16/24 Range/Units 12:59 12:59 12:59 WBC 13.60 H (4.50-10.00) 10*3/uL Immature Gran # 0.07 H (0.00-0.04) 10*3/uL Neutrophils # 12.12 H (1.80-7.70) 10*3/uL Lymphocytes # 0.82 L (0.90-5.00) 10*3/uL PT 9.5 L (10.0-12.5) sec D-Dimer 0.61 H (<0.60) mg/L FEU Sodium 134 L (137-145) mmol/L Glucose 102 H (74-99) mg/dL AST 40 H (14-36) U/L Total Protein 6.0 L (6.3-8.2) g/dL
[2024-08-16] MEDS: LORazepam 1 MG/0.5 ML VIAL IV PRN (15:49)
[2024-08-16] MEDS: HYDROcodone/APAP 5-325MG 1 EACH TAB PO PRN (15:50)
[2024-08-16] MEDS: IPRATROPIUM-ALBUTEROL 3 ML NEB INHALATION SCH (16:07)
[2024-08-16] MEDS: methylPREDNISolone SOD SUCCI 125 MG/2 ML VIAL IV SCH (19:48)
[2024-08-16] MEDS ORDERED: SYMBICORT 160-4.5 MCG INHALER INHALATION SCH (20:00)
[2024-08-16] MEDS: BUDESONIDE 1 MG/2 ML NEBU INHALATION SCH (20:33)
--- NOTE | 2024-08-17 02:38 | P.CNPUL ---
History of Present Illness Consult date: 08/17/24 Requesting physician: Luciano Ashby Reason for consult: pneumonia Chief complaint: Difficulty in breathing History of present illness: Patient is a 74-year-old female with past medical history significant for hypertension, current ongoing tobacco dependence, obstructive sleep apnea with home CPAP, anxiety. Presented to the emergency department yesterday afternoon with chief complaint of difficulty in breathing. Developing over the last 24-36 hours. Pulse oximeter reportedly reading 70s. Workup in the ED including a chest x-ray remarkable for bilateral hilar infiltrates. Labs including a CBC with a WBC count of 13.6. Hemoglobin 13.7 g/dL. Platelets 249. D-dimer 0.61. CMP unremarkable, electrolytes WDL, creatinine 0.53, glucose 102. Troponin less than 0.012. NT proBNP 1580. Viral screen negative for influenza A/B, RSV, COVID. Patient currently being evaluated in the emergency department. On BiPAP with settings 12/6 and FiO2 of 40%. Mildly tachypneic, however, not in any distress. Able to carry out conversation. Endorsing shortness of breath progressing rapidly over the last 24 to 36 hours. Associated persistent dry cough and chest tightness. No sputum production or hemoptysis. Denies any nausea, vomiting, diarrhea. No fevers/chills. No notable sick contacts. Did have recent airplane travel, returned from [place] approximately 2 weeks ago. Feeling relatively well up until 24-36 hours ago. Denies any chest pain, heart palpitations, lightheadedness or syncopal events, lower extremity edema. No history of DVT/PE. Denies history of known COPD or asthma. She does not use any inhalers at home. She does smoke 1/2 pack of cigarettes per day and has don e so for over 40 years. Previously started on azithromycin and Rocephin in the ED. Also being treated for COPD exacerbation, receiving DuoNebs [id number] and IV Solu-Medrol. Review of Systems Constitutional: Denies chills, Denies fatigue, Denies fever, Denies poor appetite, Denies weight gain, Denies weight loss Ears, nose, mouth and throat: Reports headache, Denies nasal congestion, Denies nasal discharge, Denies post-nasal drip, Denies sinus pain, Denies sinus pressure, Denies sore throat Cardiovascular: Denies chest pain, Denies leg edema, Denies lightheadedness, Denies orthopnea, Denies palpitations, Denies paroxysmal nocturnal dyspnea, Denies syncope Respiratory: Reports congestion, Reports cough, Reports dyspnea, Denies cough with sputum, Denies hemoptysis, Denies home oxygen, Denies pleurisy Gastrointestinal: Denies abdominal pain, Denies diarrhea, Denies nausea, Denies vomiting Genitourinary: Denies dysuria Musculoskeletal: Denies limitation of motion Integumentary: Denies rash Neurological: Denies seizures, Denies syncope Psychiatric: Reports anxiety, Denies depression, Denies suicidal ideation Past Medical History Past Medical History: GERD/Reflux, Musculoskeletal Disorder, Osteoarthritis (OA), Skin Disorder, Sleep Apnea/CPAP/BIPAP Additional Past Medical History / Comment(s): Irregular heartbeat. CPAP use. Varicose veins. Herniated discs C3-C7. History of Any Multi-Drug Resistant Organisms: None Reported Past Surgical History: Appendectomy, Back Surgery, Hysterectomy, Tonsillectomy Additional Past Surgical History / Comment(s): Varicose veins procedurE. PAIN PROCEDURES. Bilateral rotator cuff repair. Spinal surgery of L3-4 and L4-5. Bilateral cataract surgery, STILL WEARS CONTACT IN RIGHT EYE. Past Anesthesia/Blood Transfusion Reactions: No Reported Reaction Past Psychological History: Anxiety Smoking Status: Current every day smoker Past Alcohol Use History: None Reported Past Drug Use History: Marijuana - Past Family History Father Family Medical History: Cancer Additional Family Medical History / Comment(s): Lung Cancer. Mother Family Medical History: Cancer Additional Family Medical History / Comment(s): Lung Cancer. Medications and Allergies Home Medications Medication Instructions Recorded Confirmed Type dilTIAZem HCL [Diltiazem HCl 24Hr 180 mg PO DAILY 01/27/20 08/16/24 History ER] Famotidine 40 mg PO DAILY 10/30/22 08/16/24 History Benazepril HCl 40 mg PO DAILY 08/16/24 08/16/24 History FLUoxetine HCL [PROzac] 40 mg PO DAILY 08/16/24 08/16/24 History Ibuprofen [Motrin] 800 mg PO TID PRN 08/16/24 08/16/24 History Pantoprazole [Protonix] 40 mg PO DAILY 08/16/24 08/16/24 History Varenicline [Chantix Starter Pack] See Taper PO DIRECTED 08/16/24 08/16/24 History Allergies Allergy/AdvReac Type Severity Reaction Status Date / Time Histamine H2 Inhibitors Allergy Rash/Hives Verified 08/16/24 14:59 nitrofurantoin Allergy Rash/Hives Verified 08/16/24 14:59 [From Macrobid] Sulfa (Sulfonamide Allergy Rash/Hives Verified 08/16/24 14:59 Antibiotics) Physical Exam Vitals: Vital Signs Temp Pulse Resp BP Pulse Ox FiO2 08/17/24 00:24 40 08/16/24 23:36 95 20 139/82 96 08/16/24 20:56 101 H 08/16/24 20:34 90 40 08/16/24 19:14 92 20 136/84 92 L 08/16/24 16:23 102 H 08/16/24 16:09 104 H 08/16/24 15:28 40 08/16/24 15:00 30 08/16/24 14:58 105 H 20 165/96 88 L 08/16/24 14:42 90 L 08/16/24 13:23 107 H 20 91 L 08/16/24 13:08 104 H 08/16/24 13:00 98 08/16/24 12:20 98.3 F 103 H 26 H 129/78 79 L Intake and Output 08/16/24 08/16/24 08/17/24 14:59 22:59 06:59 Other: Weight 58.967 kg GENERAL EXAM: Alert, 74-year-old female, on BiPAP with settings 12/6 and FiO2 of 40%. Mildly tachypneic breathing around 30 breaths/min. HEAD: Normocephalic and atraumatic EYES: Normal reaction of pupils, equal size. NOSE: Clear with pink turbinates. THROAT: No erythema or exudates. NECK: No masses, no JVD. CHEST: No chest wall deformity. LUNGS: Equal air entry with no crackles, wheeze, rhonchi or dullness. CVS: S1 and S2 normal with no audible murmur, regular rhythm. No extra heart sounds ABDOMEN: No hepatosplenomegaly, active bowel sounds, no guarding or rigidity. SPINE: No scoliosis or deformity SKIN: No rashes CENTRAL NERVOUS SYSTEM: No focal deficits, tone is normal in all 4 extremities. EXTREMITIES: There is no peripheral edema, clubbing, or cyanosis. Peripheral pulses are intact. Results - Laboratory Findings CBC and BMP: 08/17/24 06:29 08/17/24 06:29 PT/INR, D-dimer PT 9.5 sec (10.0-12.5) L 08/16/24 12:59 INR 0.8 (<1.2) 08/16/24 12:59 D-Dimer 0.61 mg/L FEU (<0.60) H 08/16/24 12:59 Abnormal lab findings: Abnormal Labs 08/16/24 08/16/24 08/16/24 12:59 12:59 12:59 WBC 13.60 H Immature Gran # 0.07 H Neutrophils # 12.12 H Lymphocytes # 0.82 L PT 9.5 L D-Dimer 0.61 H Sodium 134 L Glucose 102 H AST 40 H Total Protein 6.0 L - Diagnostic Findings Chest x-ray: image reviewed Assessment and Plan Assessment: Bilateral community-acquired pneumonia, doubtful as the patient has bilateral breast implants acute COPD exacerbation, BiPAP dependent at this point. Acute hypoxemic respiratory failure, currently on BiPAP Current ongoing tobacco dependence, over [id number] history Obstructive sleep apnea with home CPAP Hypertension History of kyphoplasty GERD Anxiety Plan: Continue BiPAP with current settings Patient's medications, labs, chest x-ray reviewed Chest x-ray remarkable for bilateral hilar infiltrates. Stable cardiac silhouette, no pleural effusions, or pneumothoraces. Continue empiric antibiotics Check urine Legionella antigen Viral screen negative for influenza A/B, RSV, COVID Previously started on recommendation of budesonide, formoterol, scheduled DuoNebs, and IV Solu-Medrol Smoking cessation counseling performed Case to be reviewed with my supervising physician, additional recommendations to follow I have personally seen and examined the patient, performed the documentation and the assessment and plan as written. Number of minutes spent on the visit:20 On 08/17/2024, the patient is being seen in joint evaluation along with the nurse practitioner. This is a 74-year-old female patient, who is presenting with worsening shortness of breath and acute COPD exacerbation. The patient is a chronic smoker and she also has obstructive sleep apnea maintained on home CPAP therapy on outpatient basis. I reviewed the chest x-ray. The patient has bilateral breast implants. Underlying pneumonia is felt to be less likely. At this point in time, the patient is on BiPAP and the patient is tolerating the BiPAP reasonably well without any major difficulties. She is able to generate adequate tidal volumes. She is not using accessory muscles of breathing and the patient has no signs of any CO2 narcosis. Viral screen has been negative. Legionella urine antigen has been negative. The white cell count is 14.6 with a hemoglobin 11.8 and a platelet count 222. BUN is 14 with a creatinine of 0.4. Sodium levels at 131 and potassium level is at 4.0. She is empirically covered with a combination of Rocephin and Zithromax. She is on DuoNeb the blood seems [id number]. She is also on IV Solu-Medrol 60 mg every 6 hours. She was not offered a nicotine patch. She is also on Lovenox for DVT prophylaxis. Rest of the home medications have been normal resumed. We decided to keep the patient on BiPAP for the next 12 to 24 hours and we will wean her off the BiPAP as of tomorrow. proBNP level is 1580. No signs of any decompensated heart failure. Her most recent low-dose CAT scan of the chest was done on 10/12/2022 and it shows no acute cardiopulmonary disease and there is background emphysema without any suspicious nodules or lesions. Time with Patient: Greater than 30
[2024-08-17] MEDS: ACETAMINOPHEN TAB 325 MG TAB PO PRN (05:02)
[2024-08-17 06:42] LABS: HCT 35.7 % (37.2-46.3); HGB 11.8 g/dL (12.0-15.0); MCHC 33.1 g/dL (32.0-37.0); MCV 84.6 fL (80.0-97.0); Mean Platelet Volume 9.9 fL (9.5-12.2); Platelet Count 222 10*3/uL (140-440); RBC 4.22 10*6/uL (4.10-5.20); RDW 14.8 % (11.5-14.5); WBC 14.66 10*3/uL (4.50-10.00)
[2024-08-17 07:10] LABS: ALT 16 U/L (4-34); AST 36 U/L (14-36); African American GFR (CKD) >90 (>60 ml/min/1.73 sqM); Albumin 2.9 g/dL (3.5-5.0); Alkaline Phosphatase 80 U/L (38-126); Anion Gap 8 mmol/L; Blood Urea Nitrogen 14 mg/dL (7-17); Calcium 9.2 mg/dL (8.4-10.2); Carbon Dioxide 19 mmol/L (22-30); Chloride 104 mmol/L (98-107); Glucose 134 mg/dL (74-99); Magnesium 1.9 mg/dL (1.6-2.3); Non-African American GFR(CKD) >90 (>60 ml/min/1.73 sqM); Sodium 131 mmol/L (137-145); Total Bilirubin 0.3 mg/dL (0.2-1.3); Total Protein 5.1 g/dL (6.3-8.2)
--- NOTE | 2024-08-17 07:58 | XR ---
EXAMINATION TYPE: XR chest 1V portable DATE OF EXAM: 08/17/2024 5:42 AM COMPARISON: 08/16/2024 CLINICAL INDICATION: Female, 74 years old with history of pneumonia, , FINDINGS: Heart normal size. Aorta and pulmonary vasculature within normal limits. Diffuse bilateral airspace o pacities similar to slightly worsened in the interval. No pleural effusion. Suture anchors right judy ral head. IMPRESSION: Bilateral airspace disease similar to slightly worsened in the interval. [facility], Workstation: [facility], 08/17/2024 7:55 AM
[2024-08-17] MEDS: PANTOPRAZOLE 40 MG TABLET PO SCH (08:00)
[2024-08-17] MEDS: FORMOTEROL FUMARATE 20 MCG/2 ML NEBU INHALATION SCH (09:29)
[2024-08-17] MEDS: ENOXAPARIN 40 MG/0.4 ML SYRINGE SQ SCH (09:41)
[2024-08-17] MEDS: FAMOTIDINE 20 MG TAB PO SCH (09:42)
[2024-08-17] MEDS: FLUoxetine HCL 20 MG CAP PO SCH (09:43)
[2024-08-17] MEDS: AZITHROMYCIN 500 MG TAB PO SCH (09:43)
[2024-08-17] MEDS: DILTIAZEM CD 180 MG CAP.ER.24H PO SCH (09:43)
[2024-08-17] MEDS: lisinopriL 20 MG TAB PO SCH (09:44)
[2024-08-17 12:58] LABS: Glucose,Whole Blood 129 mg/dL (70-110)
--- NOTE | 2024-08-17 15:47 | P.PN ---
Subjective Progress Note Date: 08/17/24 Hospital Course: Patient is a pleasant 74-year-old female with a past medical history hypertension, hyperlipidemia, anxiety, COPD with continued nicotine dependence, and obstructive sleep apnea CPAP dependent. She presented to our facility with a chief complaint of shortness of breath. Patient reports sudden onset shortness of breath and dry nonproductive cough beginning yesterday evening and progressively worsening. She denies any fevers, chills, diaphoresis, chest pain, palpitations, or experiencing any numbness/tingling/weakness/swelling in her extremities. She does admit to recently flying back from [place] 2 weeks ago. She denies having any swelling in her legs or calf pain, denies any history of DVT or PEs. She does admit to being outside a little bit yesterday in the heat. Patient reports shortness of breath and cough continued throughout the entire night and worse this morning. She reports she checked her pulse ox at home and it was only reading in the 70s so her brought her to the hospital for evaluation. Upon arrival to our facility, patient underwent evaluation in the emergency department. Vital signs upon arrival show blood pressure 129/78, heart rate 103, respiratory rate 26, temp 98.3 F, and SpO2 of 79% on room air. EKG completed showing normal sinus rhythm at 93 bpm with T wave inversion in lateral lead aVL. Chest x-ray completed showing no acute cardiopulmonary process most consistent with bilateral multifocal pneumonia. Labs completed and reviewed. CBC showing leukocytosis with WBC count of 13.60, immature granulocytes of 0.07, and neutrophils of 12.12. BMP showing mild hyponatremia with sodium of 134 otherwise normal findings. Blood glucose 102. Lactic acid 1.4. Calcium 9.6. Magnesium 1.9. Liver profile showing elevated AST otherwise normal findings. Troponin was negative at less than 0.012 and proBNP was 1580. D-dimer was slightly elevated at 0.61 but normal with age correction. Physical exam: Patient seen and fully evaluated at bedside this morning. She remains on BiPAP but her work of breathing appears increased today when compared to yesterday. Discussed with patient and patient's at bedside, patient reports she continues to feel short of breath and feels BiPAP is worsening her anxiety and makes it hard for her breathing to slow down. Discussed with nursing staff at bedside patient has Ativan ordered as needed for anxiety and to be given medication at this time and monitored closely for improvement in respiratory work of breathing. Patient denies any other complaints including chest pain, palpitations, headache, lightheadedness, or experiencing any numbness/tingling/weakness in her extremities. Vital signs reviewed and stable. General: Nontoxic, no distress and appears stated age. Derm: Skin warm and dry, normal coloration for ethnicity. Head: Atraumatic, normocephalic and symmetric. Eyes: EOM's intact, no lid lag, and anicteric sclera Mouth: no lip lesions, mucus membranes moist Cardiovascular: regular rate and rhythm with normal S1S2, no murmur, positive posterior tibial pulses bilaterally, and cap refill < 2 seconds. Lungs: Respirations with increased work of breathing on BiPAP. Lungs essenti ally clear with good air movement on BiPAP, no rhonchi, rales, wheezes, or crackles noted. Abdominal: soft, nontender to palpation, no guarding, no appreciable organomegaly Ext: ROM intact. No gross muscle atrophy, no edema, no contractures Neuro: Speech clear, face symmetrical and CN II-XII grossly intact with no noted focal neuro deficits Psych: Alert and oriented to person, place, time, and situation. Appropriate and pleasant affect. Assessment and Plan of Care: Acute respiratory failure with hypoxia secondary to multifocal pneumonia and underlying COPD Multifocal bilateral pneumonia Asthma/COPD with acute exacerbation -Pulmonology following, reviewed documentation in chart -Continue BiPAP with IPAP of 13, EPAP 6, FiO2 40% and to be titrated ac cordingly to keep SpO2 equal to or greater than 90%. -Telemetry monitoring. -Monitor pulse-oximetry -Duonebs scheduled 4 times daily and as needed for SOB and/or wheezing -Incentive Spirometry once weaned off of BiPAP -Steroids: Solu-Medrol 60 mg IVP every 6 hours -Antibiotics: Rocephin 2 g daily and Zithromax 500 mg daily -Influenza A, influenza B, RSV, and COVID PCR negative. -Urine Legionella negative -Follow-up on blood culture results once available. Hypertension History of cardiac arrhythmia/irregular heartbeat Monitor vital signs and continue daily medication regimen with benazepril 40 mg daily and diltiazem 180 mg daily. Anxiety with depression Continue daily medication regimen with fluoxetine 40 mg daily and Ativan 0.5 mg IVP every 6 hours as needed for anxiety. GERD Continue daily medication regimen with Protonix 40 mg daily. Nicotine dependence Recommend smoking cessation and order placed for nicotine patch 21 mg daily. Obstructive sleep apnea Patient currently requiring continuous BiPAP once weaned off BiPAP, patient to resume CPAP nightly and while napping. Data and imaging reviewed: Vital signs reviewed. Blood pressure 149/82, heart rate 92, respiratory rate 26, and SpO2 of 94% on BiPAP with FiO2 to 40% -Labs reviewed. Urine Legionella negative. Influenza A, influenza B, RSV, and COVID PCR were negative. CBC showing leukocytosis with WBC count of 14.66 hemoglobin of 11.8. BMP showing hyponatremia with sodium of 131, hypocarbia with bicarb of 19, blood glucose of 134. Magnesium 1.9. And liver profile normal findings with the exception of low total protein of 5.1 and albumin of 2.9. CODE STATUS: Full code DVT prophylaxis: Lovenox Discussed with: Patient, patient's at bedside, RN, respiratory therapist, and ED physician Anticipated discharge date: Pending clinical course Anticipated discharge place: Home Patient was seen independently by Nurse Practitioner. This document was prepared using [employer] dictation software. Please allow for errors in geometrician while rare they do occur. Sandro Potts NP rendered care for this patient independently, reviewed the findings and plan as documented in the note above and agree with plan. I did not physically speak with or examine the patient on this date. Objective - Vital Signs Vital signs: Vital Signs Temp 98.3 F 08/16/24 12:20 Pulse 101 H 08/17/24 09:52 Resp 31 H 08/17/24 09:52 BP 149/82 08/17/24 08:38 Pulse Ox 93 L 08/17/24 04:55 FiO2 40 08/17/24 09:29 Intake & Output 08/16/24 08/17/24 08/17/24 18:59 06:59 18:59 Weight 58.967 kg - Labs CBC & Chem 7: 08/17/24 06:29 08/17/24 06:29 Labs: Abnormal Lab Results - Last 24 Hours (Table) 08/16/24 08/16/24 08/16/24 Range/Units 12:59 12:59 12:59 WBC 13.60 H (4.50-10.00) 10*3/uL Hgb (12.0-15.0) g/dL Hct (37.2-46.3) % Immature Gran # 0.07 H (0.00-0.04) 10*3/uL Neutrophils # 12.12 H (1.80-7.70) 10*3/uL Lymphocytes # 0.82 L (0.90-5.00) 10*3/uL PT 9.5 L (10.0-12.5) sec D-Dimer 0.61 H (<0.60) mg/L FEU Sodium 134 L (137-145) mmol/L Carbon Dioxide (22-30) mmol/L Creatinine (0.52-1.04) mg/dL Glucose 102 H (74-99) mg/dL AST 40 H (14-36) U/L Total Protein 6.0 L (6.3-8.2) g/dL Albumin (3.5-5.0) g/dL 08/17/24 08/17/24 Range/Units 06:29 06:29 WBC 14.66 H (4.50-10.00) 10*3/uL Hgb 11.8 L (12.0-15.0) g/dL Hct 35.7 L (37.2-46.3) % Immature Gran # (0.00-0.04) 10*3/uL Neutrophils # (1.80-7.70) 10*3/uL Lymphocytes # (0.90-5.00) 10*3/uL PT (10.0-12.5) sec D-Dimer (<0.60) mg/L FEU Sodium 131 L (137-145) mmol/L Carbon Dioxide 19 L (22-30) mmol/L Creatinine 0.41 L (0.52-1.04) mg/dL Glucose 134 H (74-99) mg/dL AST (14-36) U/L Total Protein 5.1 L (6.3-8.2) g/dL Albumin 2.9 L (3.5-5.0) g/dL
[2024-08-17] MEDS: LORazepam 1 MG/0.5 ML VIAL IV STA (15:53)
[2024-08-17] MEDS: guaiFENesin 600 MG TABLET.ER PO PRN (22:10)
[2024-08-18 07:07] LABS: HGB 11.4 g/dL (12.0-15.0); MCH 28.4 pg (27.0-32.0); MCHC 33.5 g/dL (32.0-37.0); MCV 84.8 fL (80.0-97.0); Mean Platelet Volume 10.4 fL (9.5-12.2); Platelet Count 271 10*3/uL (140-440); RBC 4.01 10*6/uL (4.10-5.20); RDW 14.6 % (11.5-14.5); WBC 19.21 10*3/uL (4.50-10.00)
[2024-08-18 07:31] LABS: African American GFR (CKD) >90 (>60 ml/min/1.73 sqM); Anion Gap 5 mmol/L; Blood Urea Nitrogen 20 mg/dL (7-17); Calcium 9.3 mg/dL (8.4-10.2); Carbon Dioxide 22 mmol/L (22-30); Chloride 108 mmol/L (98-107); Glucose 136 mg/dL (74-99); Non-African American GFR(CKD) >90 (>60 ml/min/1.73 sqM); Potassium 3.9 mmol/L (3.5-5.1); Sodium 135 mmol/L (137-145)
--- NOTE | 2024-08-18 12:22 | P.PN ---
Subjective Progress Note Date: 08/18/24 Hospital Course: Patient is a pleasant 74-year-old female with a past medical history hypertension, hyperlipidemia, anxiety, COPD with continued nicotine dependence, and obstructive sleep apnea CPAP dependent. She presented to our facility with a chief complaint of shortness of breath. Patient reports sudden onset shortness of breath and dry nonproductive cough beginning yesterday evening and progressively worsening. She denies any fevers, chills, diaphoresis, chest pain, palpitations, or experiencing any numbness/tingling/weakness/swelling in her extremities. She does admit to recently flying back from [place] 2 weeks ago. She denies having any swelling in her legs or calf pain, denies any history of DVT or PEs. She does admit to being outside a little bit yesterday in the heat. Patient reports shortness of breath and cough continued throughout the entire night and worse this morning. She reports she checked her pulse ox at home and it was only reading in the 70s so her brought her to the hospital for evaluation. Upon arrival to our facility, patient underwent evaluation in the emergency department. Vital signs upon arrival show blood pressure 129/78, heart rate 103, respiratory rate 26, temp 98.3 F, and SpO2 of 79% on room air. EKG completed showing normal sinus rhythm at 93 bpm with T wave inversion in lateral lead aVL. Chest x-ray completed showing no acute cardiopulmonary process most consistent with bilateral multifocal pneumonia. Labs completed and reviewed. CBC showing leukocytosis with WBC count of 13.60, immature granulocytes of 0.07, and neutrophils of 12.12. BMP showing mild hyponatremia with sodium of 134 otherwise normal findings. Blood glucose 102. Lactic acid 1.4. Calcium 9.6. Magnesium 1.9. Liver profile showing elevated AST otherwise normal findings. Troponin was negative at less than 0.012 and proBNP was 1580. D-dimer was slightly elevated at 0.61 but normal with age correction. Physical exam: Patient seen and fully evaluated at bedside this morning. She remains on BiPAP with tachypneic respirations, however the previous noted increased work of breathing has improved and respirations are unlabored. Patient is able to speak in 5-6 word sentences without any noted difficulty. She reports being on BiPAP is hard, will attempt to wean off BiPAP later today. Patient denies having any other questions, needs, or complaints at this time. Patient's sister at bedside also updated on plan of care. Vital signs reviewed and stable. General: Nontoxic, no distress and appears stated age. Derm: Skin warm and dry, normal coloration for ethnicity. Head: Atraumatic, normocephalic and symmetric. Eyes: EOM's intact, no lid lag, and anicteric sclera Mouth: no lip lesions, mucus membranes moist Cardiovascular: regular rate and rhythm with normal S1S2, no murmur, positive posterior tibial pulses bilaterally, and cap refill < 2 seconds. Lungs: Respirations tachypneic on BiPAP. Lungs essentially clear with good air movement on BiPAP, no rhonchi, rales, wheezes, or crackles noted. Abdominal: soft, nontender to palpation, no guarding, no appreciable organomegaly Ext: ROM intact. No gross muscle atrophy, no edema, no contractures Neuro: Speech clear, face symmetrical and CN II-XII grossly intact with no noted focal neuro deficits Psych: Alert and oriented to person, place, time, and situation. Appropriate and pleasant affect. Assessment and Plan of Care: Acute respiratory failure with hypoxia secondary to multifocal pneumonia and underlying COPD Multifocal bilateral pneumonia Asthma/COPD with acute exacerbation -Pulmonology following, reviewed documentation in chart -Continue BiPAP with IPAP of 13, EPAP 6, FiO2 40% and to be titrated accordingly to keep SpO2 equal to or greater than 90%. -Telemetry monitoring. -Monitor pulse-oximetry -Duonebs scheduled 4 times daily and as needed for SOB and/or wheezing -Incentive Spirometry once weaned off of BiPAP -Steroids: Solu-Medrol 60 mg IVP every 6 hours -Antibiotics: Rocephin 2 g daily and Zithromax 500 mg daily -Influenza A, influenza B, RSV, and COVID PCR negative. Urine Legionella negative. Blood culture showing no growth to date Hypertension History of cardiac arrhythmia/irregular heartbeat Monitor vital signs and continue daily medication regimen with benazepril 40 mg daily and diltiazem 180 mg daily. Anxiety with depression Continue daily medication regimen with fluoxetine 40 mg daily and Ativan 0.5 mg IVP every 6 hours as needed for anxiety. GERD Continue daily medication regimen with Protonix 40 mg daily. Nicotine dependence Recommend smoking cessation and order placed for nicotine patch 21 mg daily. Obstructive sleep apnea Patient currently requiring continuous BiPAP once weaned off BiPAP, patient to resume CPAP nightly and while napping. Data and imaging reviewed: Vital signs reviewed. Blood pressure 156/89, heart rate 90, respiratory rate 24, and SpO2 of 95% on BiPAP with FiO2 to 40% -Labs reviewed. CBC showing leukocytosis with WBC count of 19.21 and normocytic anemia with hemoglobin of 11.4. BMP showing sodium 135, chloride 108, bicarb of 22, and anion gap of 5. Blood glucose 136. Calcium 9.3. Magnesium 2.0. Blood culture showing no growth to date. CODE STATUS: Full code DVT prophylaxis: Lovenox Discussed with: Patient, patient's sister at bedside, and RN Anticipated discharge date: Pending clinical course Anticipated discharge place: Home Patient was seen independently by Nurse Practitioner. This document was prepared using [employer] dictation software. Please allow for errors in liquor clerk while rare they do occur. Sandro Potts NP rendered care for this patient independently, reviewed the findings and plan as documented in the note above and agree with plan. I did not physically speak with or examine the patient on this date. Objective - Vital Signs Vital signs: Vital Signs Temp 97.3 F L 08/18/24 03:36 Pulse 85 08/18/24 06:32 Resp 32 H 08/18/24 03:36 BP 134/86 08/18/24 03:36 Pulse Ox 87 L 08/18/24 03:36 FiO2 40 08/18/24 08:20 Intake & Output 08/17/24 08/18/24 08/18/24 18:59 06:59 18:59 Weight 60.5 kg Other: Voiding Method External Catheter # Voids 1 # Bowel Movements 1 - Labs CBC & Chem 7: 08/18/24 06:17 08/18/24 06:17 Labs: Abnormal Lab Results - Last 24 Hours (Table) 08/17/24 08/18/24 08/18/24 Range/Units 12:56 06:17 06:17 WBC 19.21 H (4.50-10.00) 10*3/uL RBC 4.01 L (4.10-5.20) 10*6/uL Hgb 11.4 L (12.0-15.0) g/dL Hct 34.0 L (37.2-46.3) % Sodium 135 L (137-145) mmol/L Chloride 108 H (98-107) mmol/L BUN 20 H (7-17) mg/dL Creatinine 0.51 L (0.52-1.04) mg/dL Glucose 136 H (74-99) mg/dL POC Glucose (mg/dL) 129 H (70-110) mg/dL Microbiology - Last 24 Hours (Table) 08/16/24 12:59 Blood Culture - Preliminary Blood
[2024-08-18] MEDS: LORazepam 0.5 MG TAB PO PRN (14:56)
--- NOTE | 2024-08-18 21:12 | P.PN ---
Subjective Progress Note Date: 08/18/24 Patient is a 74-year-old female with past medical history significant for hypertension, current ongoing tobacco dependence, obstructive sleep apnea with home CPAP, anxiety. Presented to the emergency department yesterday afternoon with chief complaint of difficulty in breathing. Developing over the last 24-36 hours. Pulse oximeter reportedly reading 70s. Workup in the ED including a chest x-ray remarkable for bilateral hilar infiltrates. Labs including a CBC with a WBC count of 13.6. Hemoglobin 13.7 g/dL. Platelets 249. D-dimer 0.61. CMP unremarkable, electrolytes WDL, creatinine 0.53, glucose 102. Troponin less than 0.012. NT proBNP 1580. Viral screen negative for influenza A/B, RSV, C OVID. Patient currently being evaluated in the emergency department. On BiPAP with settings 12/6 and FiO2 of 40%. Mildly tachypneic, however, not in any distress. Able to carry out conversation. Endorsing shortness of breath progressing rapidly over the last 24 to 36 hours. Associated persistent dry cough and chest tightness. No sputum production or hemoptysis. Denies any nausea, vomiting, diarrhea. No fevers/chills. No notable sick contacts. Did have recent airplane travel, returned from [place] approximately 2 weeks ago. Feeling relatively well up until 24-36 hours ago. Denies any chest pain, heart palpitations, lightheadedness or syncopal events, lower extremity edema. No history of DVT/PE. Denies history of known COPD or asthma. She does not use any inhalers at home. She does smoke 1/2 pack of cigarettes per day and has done so for over 40 years. Previously started on azithromycin and Rocephin in the ED. Also being treated for COPD exacerbation, receiving DuoNebs amol [id number] and IV Solu-Medrol. 08/18/2024, the patient is being seen for a follow-up. The patient is still on the BiPAP at pressures of 13 over 6 cm of water. The patient is comfortable. Slightly tachypneic. Denies having any chest pain. No significant cough or sputum production. The white seconds at 19.2 with a hemoglobin of 11.4 and a platelet count of 271. BUN is 20 with a creatinine of 0.5. Sodium levels at 135. Viral screen was negative. Legionella urine antigen was negative. Hemodynamically stable. Remains on bronchodilators and IV Solu-Medrol Remains on IV Rocephin. Objective - Vital Signs Vital signs: Vital Signs Temp 97.8 F 08/18/24 08:00 Pulse 90 08/18/24 08:00 Resp 24 08/18/24 08:00 BP 156/89 08/18/24 08:00 Pulse Ox 95 08/18/24 08:00 FiO2 40 08/18/24 08:20 Intake & Output 08/17/24 08/18/24 08/18/24 18:59 06:59 18:59 Weight 60.5 kg Other: Voiding Method External Catheter # Voids 1 # Bowel Movements 1 - Exam GENERAL EXAM: Alert, 74-year-old female, on BiPAP with settings 13/6 and FiO2 of 40%. Mildly tachypneic HEAD: Normocephalic and atraumatic EYES: Normal reaction of pupils, equal size. NOSE: Clear with pink turbinates. THROAT: No erythema or exudates. NECK: No masses, no JVD. CHEST: No chest wall deformity. LUNGS: Equal air entry with no crackles, wheeze, rhonchi or dullness. CVS: S1 and S2 normal with no audible murmur, regular rhythm. No extra heart sounds ABDOMEN: No hepatosplenomegaly, active bowel sounds, no guarding or rigidity. SPINE: No scoliosis or deformity SKIN: No rashes CENTRAL NERVOUS SYSTEM: No focal deficits, tone is normal in all 4 extremities. EXTREMITIES: There is no peripheral edema, clubbing, or cyanosis. Peripheral pulses are intact. - Labs CBC & Chem 7: 08/18/24 06:17 08/18/24 06:17 Labs: Abnormal Lab Results - Last 24 Hours (Table) 08/17/24 08/18/24 08/18/24 Range/Units 12:56 06:17 06:17 WBC 19.21 H (4.50-10.00) 10*3/uL RBC 4.01 L (4.10-5.20) 10*6/uL Hgb 11.4 L (12.0-15.0) g/dL Hct 34.0 L (37.2-46.3) % Sodium 135 L (137-145) mmol/L Chloride 108 H (98-107) mmol/L BUN 20 H (7-17) mg/dL Creatinine 0.51 L (0.52-1.04) mg/dL Glucose 136 H (74-99) mg/dL POC Glucose (mg/dL) 129 H (70-110) mg/dL Microbiology - Last 24 Hours (Table) 08/16/24 12:59 Blood Culture - Preliminary Blood Assessment and Plan Assessment: acute COPD exacerbation, clinically improving and the patient remains on BiPAP at a pressure of 13 over 6 cm of water and FiO2 40%. Adequate oxygenation. Altered mentation. No chest pain pleurisy or hemoptysis. Pneumonia is doubtful. Acute hypoxemic respiratory failure, currently on BiPAP Acute leukocytosis Current ongoing tobacco dependence, over [id number] history Obstructive sleep apnea with home CPAP Hypertension History of kyphoplasty GERD Anxiety Plan: Will take the patient off the BiPAP and put her on 5 L of oxygen by nasal cannula Continue DuoNeb nebulized treatments [id number] Continue Perforomist and Pulmicort nebulized treatments twice a day Continue IV Solu-Medrol Continue IV Rocephin Check urine Legionella antigen was negative Viral screen negative for influenza A/B, RSV, COVID Clinically improving and will continue to follow.
[2024-08-19 08:09] LABS: HCT 35.1 % (37.2-46.3); HGB 11.7 g/dL (12.0-15.0); MCH 28.5 pg (27.0-32.0); MCHC 33.3 g/dL (32.0-37.0); MCV 85.6 fL (80.0-97.0); Platelet Count 269 10*3/uL (140-440); RDW 14.8 % (11.5-14.5); WBC 15.64 10*3/uL (4.50-10.00)
[2024-08-19 08:30] LABS: African American GFR (CKD) >90 (>60 ml/min/1.73 sqM); Anion Gap 5 mmol/L; Blood Urea Nitrogen 28 mg/dL (7-17); Calcium 9.4 mg/dL (8.4-10.2); Carbon Dioxide 22 mmol/L (22-30); Chloride 109 mmol/L (98-107); Glucose 128 mg/dL (74-99); Magnesium 2.1 mg/dL (1.6-2.3); Non-African American GFR(CKD) >90 (>60 ml/min/1.73 sqM); Potassium 3.8 mmol/L (3.5-5.1); Sodium 136 mmol/L (137-145)
--- NOTE | 2024-08-19 13:34 | P.PN ---
Subjective Progress Note Date: 08/19/24 Hospital Course: Patient is a pleasant 74-year-old female with a past medical history hypertension, hyperlipidemia, anxiety, COPD with continued nicotine dependence, and obstructive sleep apnea CPAP dependent. She presented to our facility with a chief complaint of shortness of breath. Patient reports sudden onset shortness of breath and dry nonproductive cough beginning yesterday evening and progressively worsening. She denies any fevers, chills, diaphoresis, chest pain, palpitations, or experiencing any numbness/tingling/weakness/swelling in her extremities. She does admit to recently flying back from [place] 2 weeks ago. She denies having any swelling in her legs or calf pain, denies any history of DVT or PEs. She does admit to being outside a little bit yesterday in the heat. Patient reports shortness of breath and cough continued throughout the entire night and worse this morning. She reports she checked her pulse ox at home and it was only reading in the 70s so her brought her to the hospital for evaluation. Upon arrival to our facility, patient underwent evaluation in the emergency department. Vital signs upon arrival show blood pressure 129/78, heart rate 103, respiratory rate 26, temp 98.3 F, and SpO2 of 79% on room air. EKG completed showing normal sinus rhythm at 93 bpm with T wave inversion in lateral lead aVL. Chest x-ray completed showing no acute cardiopulmonary process most consistent with bilateral multifocal pneumonia. Labs completed and reviewed. CBC showing leukocytosis with WBC count of 13.60, immature granulocytes of 0.07, and neutrophils of 12.12. BMP showing mild hyponatremia with sodium of 134 otherwise normal findings. Blood glucose 102. Lactic acid 1.4. Calcium 9.6. Magnesium 1.9. Liver profile showing elevated AST otherwise normal findings. Troponin was negative at less than 0.012 and proBNP was 1580. D-dimer was slightly elevated at 0.61 but normal with age correction. Physical exam: Patient seen and fully evaluated at bedside this morning. She was visiting with her at bedside and eating breakfast at this time. She was just taken off BiPAP and placed on high flow nasal cannula 5 L and maintaining SpO2 of 92% at this time. Patient reports her breathing is better and the nasal cannula, states it is very difficult with BiPAP. She denies having any other complaints, questions, or needs at this time. Vital signs reviewed and stable. General: Nontoxic, no distress and appears stated age. Derm: Skin warm and dry, normal coloration for ethnicity. Head: Atraumatic, normocephalic and symmetric. Eyes: EOM's intact, no lid lag, and anicteric sclera Mouth: no lip lesions, mucus membranes moist Cardiovascular: regular rate and rhythm with normal S1S2, no murmur, positive posterior tibial pulses bilaterally, and cap refill < 2 seconds. Lungs: Respirations tachypneic on BiPAP. Lungs essentially clear with good air movement on BiPAP, no rhonchi, rales, wheezes, or crackles noted. Abdominal: soft, nontender to palpation, no guarding, no appreciable organomegaly Ext: ROM intact. No gross muscle atrophy, no edema, no contractures Neuro: Speech clear, face symmetrical and CN II-XII grossly intact with no noted focal neuro deficits Psych: Alert and oriented to person, place, time, and situation. Appropriate and pleasant affect. Assessment and Plan of Care: Acute respiratory failure with hypoxia secondary to multifocal pneumonia and underlying COPD Multifocal bilateral pneumonia Asthma/COPD with acute exacerbation -Pulmonology following, reviewed documentation in chart -Continue BiPAP with IPAP of 13, EPAP 6, FiO2 40% and to be titrated accordingly to keep SpO2 equal to or greater than 90%. -Telemetry monitoring. -Monitor pulse-oximetry -Duonebs scheduled 4 times daily and as needed for SOB and/or wheezing -Incentive Spirometry once weaned off of BiPAP -Steroids: Solu-Medrol 60 mg IVP every 6 hours -Antibiotics: Rocephin 2 g daily and Zithromax 500 mg daily -Influenza A, influenza B, RSV, and COVID PCR negative. Urine Legionella negative. Blood culture showing no growth to date Hypertension History of cardiac arrhythmia/irregular heartbeat Monitor vital signs and continue daily medication regimen with benazepril 40 mg daily and diltiazem 180 mg daily. Anxiety with depression Continue daily medication regimen with fluoxetine 40 mg daily and Ativan 0.5 mg IVP every 6 hours as needed for anxiety. GERD Continue daily medication regimen with Protonix 40 mg daily. Nicotine dependence Recommend smoking cessation and order placed for nicotine patch 21 mg daily. Obstructive sleep apnea Patient currently requiring continuous BiPAP once weaned off BiPAP, patient to resume CPAP nightly and while napping. Data and imaging reviewed: Vital signs reviewed. Blood pressure 156/81, heart rate 79, respiratory rate 36, and SpO2 of 96% on BiPAP with FiO2 to 40% -Labs reviewed. CBC showing leukocytosis with WBC count of 15.64 and normocytic anemia with hemoglobin of 11.7. BMP showing sodium 136, chloride 109, bicarb of 22, and anion gap of 5. BUN elevated at 28. Blood glucose 128. Calcium 9.4. Magnesium 2.1. CODE STATUS: Full code DVT prophylaxis: Lovenox Discussed with: Patient, patient's at bedside, specialty manufacturing supervisor and RN Anticipated discharge date: Pending clinical course Anticipated discharge place: Home Patient was seen independently by Nurse Practitioner. This document was prepared using [employer] dictation software. Please allow for errors in locksmith while rare they do occur. Sandro Potts NP rendered care for this patient independently, reviewed the findings and plan as documented in the note above and agree with plan. I did not physically speak with or examine the patient on this date. Objective - Vital Signs Vital signs: Vital Signs Temp 98.5 F 08/19/24 08:00 Pulse 80 08/19/24 08:13 Resp 36 H 08/19/24 08:00 BP 156/81 08/19/24 08:00 Pulse Ox 96 08/19/24 08:00 FiO2 40 08/19/24 08:13 Intake & Output 08/18/24 08/19/24 08/19/24 18:59 06:59 18:59 Intake Total 220 10 Output Total 200 Balance 220 -200 10 Weight 62.5 kg Intake: IV 10 Invasive Line 2 10 Oral 220 Output: Urine 200 Other: Voiding Method External Catheter External Catheter External Catheter # Voids 2 1 # Bowel Movements 1 1 - Labs CBC & Chem 7: 08/19/24 07:37 08/19/24 07:37 Labs: Abnormal Lab Results - Last 24 Hours (Table) 08/19/24 Range/Units 07:37 WBC 15.64 H (4.50-10.00) 10*3/uL Hgb 11.7 L (12.0-15.0) g/dL Hct 35.1 L (37.2-46.3) % Microbiology - Last 24 Hours (Table) 08/16/24 12:59 Blood Culture - Preliminary Blood
[2024-08-19] MEDS ORDERED: RX INFO: IV CONTRAST WAS GIVEN 1 EACH MISC MISCELLANE PRN (13:38)
--- NOTE | 2024-08-19 17:26 | CT ---
EXAMINATION TYPE: CT chest w con DATE OF EXAM: 08/19/2024 4:59 PM COMPARISON: None. CLINICAL INDICATION: Female, 74 years old with history of noé pneumonia, RAFY, admitted for bilateral pneumonia TECHNIQUE: Axial images were obtained at 5 mm thick sections. Reconstructed images are reviewed on t [employer] computer in the coronal plane. Contrast used:100ml mL of Isovue 300 with IV Contrast, (none if empty) Oral contrast used: (none if empty) CT DLP: 242.4 mGycm, Automated exposure control for dose reduction was used. FINDINGS: Portion of the thyroid visualized is normal. Emphysematous changes are present. There is diffuse groundglass opacities present bilaterally. Consid er atypical pneumonia. Pulmonary edema could have this appearance. Very minimal pleural effusions are present. No enlarged mediastinal or hilar adenopathy is evident. Scattered small lymph nodes within the medi astinum. The ascending aorta diameter at the level of the main pulmonary artery is 3.1 cm. The main pulmonary artery diameter at the bifurcation is 2.9 cm. No significant coronary artery calcifications. Limited CT sections are obtained through the upper abdomen. Abdomen is essentially unremarkable. IMPRESSION: 1. Diffuse groundglass opacities present bilaterally. Correlate for atypical pneumonia and pulmonary edema. 2. Minimal pleural effusions [facility], , 08/19/2024 5:24 PM
--- NOTE | 2024-08-19 19:54 | P.PN ---
Subjective Progress Note Date: 08/19/24 Patient is a 74-year-old female with past medical history significant for hypertension, current ongoing tobacco dependence, obstructive sleep apnea with home CPAP, anxiety. Presented to the emergency department yesterday afternoon with chief complaint of difficulty in breathing. Developing over the last 24-36 hours. Pulse oximeter reportedly reading 70s. Workup in the ED including a chest x-ray remarkable for bilateral hilar infiltrates. Labs including a CBC with a WBC count of 13.6. Hemoglobin 13.7 g/dL. Platelets 249. D-dimer 0.61. CMP unremarkable, electrolytes WDL, creatinine 0.53, glucose 102. Troponin less than 0.012. NT proBNP 1580. Viral screen negative for influenza A/B, RSV, C OVID. Patient currently being evaluated in the emergency department. On BiPAP with settings 12/6 and FiO2 of 40%. Mildly tachypneic, however, not in any distress. Able to carry out conversation. Endorsing shortness of breath progressing rapidly over the last 24 to 36 hours. Associated persistent dry cough and chest tightness. No sputum production or hemoptysis. Denies any nausea, vomiting, diarrhea. No fevers/chills. No notable sick contacts. Did have recent airplane travel, returned from [place] approximately 2 weeks ago. Feeling relatively well up until 24-36 hours ago. Denies any chest pain, heart palpitations, lightheadedness or syncopal events, lower extremity edema. No history of DVT/PE. Denies history of known COPD or asthma. She does not use any inhalers at home. She does smoke 1/2 pack of cigarettes per day and has done so for over 40 years. Previously started on azithromycin and Rocephin in the ED. Also being treated for COPD exacerbation, receiving DuoNebs amol [id number] and IV Solu-Medrol. 08/18/2024, the patient is being seen for a follow-up. The patient is still on the BiPAP at pressures of 13 over 6 cm of water. The patient is comfortable. Slightly tachypneic. Denies having any chest pain. No significant cough or sputum production. The white seconds at 19.2 with a hemoglobin of 11.4 and a platelet count of 271. BUN is 20 with a creatinine of 0.5. Sodium levels at 135. Viral screen was negative. Legionella urine antigen was negative. Hemodynamically stable. Remains on bronchodilators and IV Solu-Medrol Remains on IV Rocephin. 08/19/2024, the patient is being seen for a follow-up. The patient is feeling better. The patient is currently off BiPAP and she is still hypoxic range between 5 to 6 L of oxygen by nasal cannula. Based on the reported abnormalities on chest x-ray, a CT of the chest was ordered and the patient was found to have diffuse groundglass opacities bilaterally consistent with atypical pneumonia. Noted the viral screen was negative at the time of admission. Nevertheless, the patient is feeling better. She feels less short of breath. The white cell count is 15.4 and hemoglobin is at 11.7 and the platelet count of 269. BUN is 28 with a creatinine of 0.56 and a sodium noted at 136. Legionella urine antigen was negative at time of admission. Remains on DuoNeb updrafts. Remains on Perforomist and Pulmicort and remains on IV Solu-Medrol. Antibiotic coverage is with IV Rocephin. Will add Zithromax again regarding the atypical nature of this bilateral pneumonia. Objective - Vital Signs Vital signs: Vital Signs Temp 97.7 F 08/19/24 11:52 Pulse 88 08/19/24 13:04 Resp 34 H 08/19/24 11:52 BP 130/79 08/19/24 11:52 Pulse Ox 90 L 08/19/24 11:52 FiO2 40 08/19/24 08:13 Intake & Output 08/18/24 08/19/24 08/19/24 18:59 06:59 18:59 Intake Total 220 10 Output Total 200 Balance 220 -200 10 Weight 62.5 kg Intake: IV 10 Invasive Line 2 10 Oral 220 Output: Urine 200 Other: Voiding Method External Catheter External Catheter External Catheter # Voids 2 1 # Bowel Movements 1 1 - Exam GENERAL EXAM: Alert, 74-year-old female, the patient seems to be less short of breath and currently she is on 6 L of O2 nasal cannula HEAD: Normocephalic and atraumatic EYES: Normal reaction of pupils, equal size. NOSE: Clear with pink turbinates. THROAT: No erythema or exudates. NECK: No masses, no JVD. CHEST: No chest wall deformity. LUNGS: Equal air entry with no crackles, wheeze, rhonchi or dullness. CVS: S1 and S2 normal with no audible murmur, regular rhythm. No extra heart sounds ABDOMEN: No hepatosplenomegaly, active bowel sounds, no guarding or rigidity. SPINE: No scoliosis or deformity SKIN: No rashes CENTRAL NERVOUS SYSTEM: No focal deficits, tone is normal in all 4 extremities. EXTREMITIES: There is no peripheral edema, clubbing, or cyanosis. Peripheral pulses are intact. - Labs CBC & Chem 7: 08/19/24 07:37 08/19/24 07:37 Labs: Abnormal Lab Results - Last 24 Hours (Table) 08/19/24 08/19/24 Range/Units 07:37 07:37 WBC 15.64 H (4.50-10.00) 10*3/uL Hgb 11.7 L (12.0-15.0) g/dL Hct 35.1 L (37.2-46.3) % Sodium 136 L (137-145) mmol/L Chloride 109 H (98-107) mmol/L BUN 28 H (7-17) mg/dL Glucose 128 H (74-99) mg/dL Microbiology - Last 24 Hours (Table) 08/16/24 12:59 Blood Culture - Preliminary Blood Assessment and Plan Assessment: Acute hypoxemic respiratory failure, initially the patient was on BiPAP therapy and the patient is currently on 60s of O2 nasal cannula Bilateral groundglass pulmonary infiltrates, extensive involving the upper and lower lobes bilaterally. Consider atypical pneumonia. There is also background COPD as noted. The viral screen was negative at time of admission and the general urine antigen was also negative. Acute leukocytosis Current ongoing tobacco dependence, over [id number] history Obstructive sleep apnea with home CPAP Hypertension History of kyphoplasty GERD Anxiety Plan: Patient is currently in 60s of O2 nasal cannula Continue DuoNeb nebulized treatments [id number] Continue Perforomist and Pulmicort nebulized treatments twice a day Continue IV Solu-Medrol Continue IV Rocephin and restart Zithromax 5 mg p.o. daily Check urine Legionella antigen was negative Viral screen negative for influenza A/B, RSV, COVID CAT scan of the chest was noted and discussed with the patient Clinically improving and will continue to follow.
[2024-08-19] MEDS: AZITHROMYCIN 500 MG TAB PO SCH (22:03)
[2024-08-20 08:07] LABS: HCT 35.6 % (37.2-46.3); HGB 11.7 g/dL (12.0-15.0); MCH 27.9 pg (27.0-32.0); MCHC 32.9 g/dL (32.0-37.0); Mean Platelet Volume 11.2 fL (9.5-12.2); Platelet Count 235 10*3/uL (140-440); RBC 4.19 10*6/uL (4.10-5.20); RDW 14.6 % (11.5-14.5); WBC 14.37 10*3/uL (4.50-10.00)
[2024-08-20 08:34] LABS: African American GFR (CKD) >90 (>60 ml/min/1.73 sqM); Anion Gap 6 mmol/L; Blood Urea Nitrogen 23 mg/dL (7-17); Calcium 9.4 mg/dL (8.4-10.2); Carbon Dioxide 22 mmol/L (22-30); Chloride 104 mmol/L (98-107); Glucose 114 mg/dL (74-99); Non-African American GFR(CKD) >90 (>60 ml/min/1.73 sqM); Sodium 132 mmol/L (137-145)
[2024-08-20 08:35] LABS: Potassium 4.3 mmol/L (3.5-5.1)
[2024-08-20] MEDS: LOPERAMIDE 2 MG CAP PO PRN (12:54)
[2024-08-20] MEDS: AZITHROMYCIN 500 MG TAB PO SCH (12:55)
--- NOTE | 2024-08-20 13:56 | P.PN ---
Subjective Progress Note Date: 08/20/24 74-year-old female with a past medical history hypertension, hyperlipidemia, anxiety, COPD with continued nicotine dependence, and obstructive sleep apnea CPAP dependent. She presented to our facility with a chief complaint of shortness of breath. Upon arrival to our facility, patient underwent evaluation in the emergency department. Vital signs upon arrival show blood pressure 129/78, heart rate 103, respiratory rate 26, temp 98.3 F, and SpO2 of 79% on room air. EKG completed showing normal sinus rhythm at 93 bpm with T wave inversion in lateral lead aVL. Chest x-ray completed showing no acute cardiopulmonary process most consistent with bilateral multifocal pneumonia. Labs completed and reviewed. CBC showing leukocytosis with WBC count of 13.60, immature granulocytes of 0.07, and neutrophils of 12.12. BMP showing mild hyponatremia with sodium of 134 otherwise normal findings. Blood glucose 102. Lactic acid 1.4. Calcium 9.6. Magnesium 1.9. Liver profile showing elevated AST otherwise normal findings. Troponin was negative at less than 0.012 and proBNP was 1580. D-dimer was slightly elevated at 0.61 but normal with age correction. Patient was started on bronchodilators, steroids, IV Rocephin/Azithromycin and admitted for further workup and management. 08/20 Patient was seen and examined. Improved breathing. Having significant diarrhea, C. diff was checked and was negative. 94% on 5L NC. Using BiPAP overnight. CT chest showing diffuse ground glass opacities bilaterally. CBC and BMP significant for WBC 14.37, Hg 11.7, Hct 35.6, Na 132, BUN 23, Cr 0.33, glu 114. General: non toxic, no distress, appears at stated age Derm: warm, dry Head: atraumatic, normocephalic, symmetric Eyes: EOMI, no lid lag, anicteric sclera Mouth: no lip lesion, mucus membranes moist Cardiovascular: S1S2 reg, no murmur Lungs: Decreased BS bilaterally , no accessory muscle use Ext: no gross muscle atrophy, no edema, no contractures Neuro: no focal neuro deficits Psych: Alert, oriented, appropriate affect Based on my assessment of this patient, this patient meets a high complexity l evel of care. Acute respiratory failure with hypoxia and Sepsis secondary to multifocal pneumonia and underlying COPD: COVID, RSV, Flu neg. Legionella neg. BCx neg so far. Continue BiPAP PRN. DuoNeb QID scheduled and PRN SOB/wheezing. SoluMedrol 60 mg IV Q6H. Supplemental O2 to maintain O2 sat > 92%. Continue Rocephin 2g IV QD + Azithromycin 500 mg PO QD. Pulmonary on board. Hypertension: Benazepril 40 mg PO QD and diltiazem 180 mg PO QD. Anxiety with depression: Fluoxetine 40 mg PO QD and Ativan 0.5 mg IVP Q6H PRN anxiety. GERD: Protonix 40 mg PO QD. Nicotine dependence: Nicotine patch 21 mg daily. Obstructive sleep apnea: Continue BiPAP QHS and PRN. CODE STATUS: FULL CODE DVT Prophylaxis: Lovenox SQ GI Prophylaxis: Protonix Designated medical POA if patient is not able to make medical decisions for themselves: I have reviewed the following sales consultant notes: Pulm note. I have reviewed the results of the following tests: CBC, BMP, CT chest, C. diff I have ordered the following tests: CBC and BMP in the AM. I have discussed the care of this patient with the following independent historian: VESTA I have independently interpreted the following test below: I have discussed the management of this patient with the following physician: Objective - Vital Signs Vital signs: Vital Signs Temp 98.1 F 08/20/24 08:00 Pulse 82 08/20/24 10:11 Resp 16 08/20/24 08:00 BP 169/89 08/20/24 08:00 Pulse Ox 95 08/20/24 09:54 FiO2 40 08/19/24 23:07 Intake & Output 08/19/24 08/20/24 08/20/24 18:59 06:59 18:59 Intake Total 560 20 420 Output Total 250 Balance 310 20 420 Weight 62 kg Intake: IV 20 20 Invasive Line 2 20 20 Oral 540 420 Output: Urine 250 Other: Voiding Method External Catheter External Catheter External Catheter # Bowel Movements 1 1 2 - Labs CBC & Chem 7: 08/20/24 06:46 08/20/24 06:46 Labs: Abnormal Lab Results - Last 24 Hours (Table) 08/20/24 08/20/24 Range/Units 06:46 06:46 WBC 14.37 H (4.50-10.00) 10*3/uL Hgb 11.7 L (12.0-15.0) g/dL Hct 35.6 L (37.2-46.3) % Sodium 132 L (137-145) mmol/L BUN 23 H (7-17) mg/dL Creatinine 0.33 L (0.52-1.04) mg/dL Glucose 114 H (74-99) mg/dL Microbiology - Last 24 Hours (Table) 08/16/24 12:59 Blood Culture - Preliminary Blood
--- NOTE | 2024-08-20 17:36 | P.PN ---
Subjective Progress Note Date: 08/20/24 Patient is a 74-year-old female with past medical history significant for hypertension, current ongoing tobacco dependence, obstructive sleep apnea with home CPAP, anxiety. Presented to the emergency department yesterday afternoon with chief complaint of difficulty in breathing. Developing over the last 24-36 hours. Pulse oximeter reportedly reading 70s. Workup in the ED including a chest x-ray remarkable for bilateral hilar infiltrates. Labs including a CBC with a WBC count of 13.6. Hemoglobin 13.7 g/dL. Platelets 249. D-dimer 0.61. CMP unremarkable, electrolytes WDL, creatinine 0.53, glucose 102. Troponin less than 0.012. NT proBNP 1580. Viral screen negative for influenza A/B, RSV, C OVID. Patient currently being evaluated in the emergency department. On BiPAP with settings 12/6 and FiO2 of 40%. Mildly tachypneic, however, not in any distress. Able to carry out conversation. Endorsing shortness of breath progressing rapidly over the last 24 to 36 hours. Associated persistent dry cough and chest tightness. No sputum production or hemoptysis. Denies any nausea, vomiting, diarrhea. No fevers/chills. No notable sick contacts. Did have recent airplane travel, returned from [place] approximately 2 weeks ago. Feeling relatively well up until 24-36 hours ago. Denies any chest pain, heart palpitations, lightheadedness or syncopal events, lower extremity edema. No history of DVT/PE. Denies history of known COPD or asthma. She does not use any inhalers at home. She does smoke 1/2 pack of cigarettes per day and has done so for over 40 years. Previously started on azithromycin and Rocephin in the ED. Also being treated for COPD exacerbation, receiving DuoNebs amol [id number] and IV Solu-Medrol. 08/18/2024, the patient is being seen for a follow-up. The patient is still on the BiPAP at pressures of 13 over 6 cm of water. The patient is comfortable. Slightly tachypneic. Denies having any chest pain. No significant cough or sputum production. The white seconds at 19.2 with a hemoglobin of 11.4 and a platelet count of 271. BUN is 20 with a creatinine of 0.5. Sodium levels at 135. Viral screen was negative. Legionella urine antigen was negative. Hemodynamically stable. Remains on bronchodilators and IV Solu-Medrol Remains on IV Rocephin. 08/19/2024, the patient is being seen for a follow-up. The patient is feeling better. The patient is currently off BiPAP and she is still hypoxic range between 5 to 6 L of oxygen by nasal cannula. Based on the reported abnormalities on chest x-ray, a CT of the chest was ordered and the patient was found to have diffuse groundglass opacities bilaterally consistent with atypical pneumonia. Noted the viral screen was negative at the time of admission. Nevertheless, the patient is feeling better. She feels less short of breath. The white cell count is 15.4 and hemoglobin is at 11.7 and the platelet count of 269. BUN is 28 with a creatinine of 0.56 and a sodium noted at 136. Legionella urine antigen was negative at time of admission. Remains on DuoNeb updrafts. Remains on Perforomist and Pulmicort and remains on IV Solu-Medrol. Antibiotic coverage is with IV Rocephin. Will add Zithromax again regarding the atypical nature of this bilateral pneumonia. 08/20/2024, the patient is being seen for a follow-up. The patient is doing well. She feels less short of breath. She remains hypoxic and her oxygen requirements have improved and the patient is currently on 40 Suboxone by nasal cannula. CAT scan of the chest was noted from yesterday and the patient has bilateral pulmonary infiltrates consistent with pneumonia and the patient remains on a combination of Rocephin and Zithromax. Consider the possibility of an atypical pneumonia. The white cell count 14.3 with a hemoglobin 11.7 and platelet count of 235. BUN is 23 with a creatinine of 0.33. Electrolytes all within normal limits. Remains on DuoNeb treatments [id number]. Remains on IV Solu-Medrol. Remains on Lovenox for DVT prophylaxis. Cultures have been negative including blood cultures. Objective - Vital Signs Vital signs: Vital Signs Temp 98.1 F 08/20/24 08:00 Pulse 82 08/20/24 10:11 Resp 16 08/20/24 08:00 BP 169/89 08/20/24 08:00 Pulse Ox 95 08/20/24 09:54 FiO2 40 08/19/24 23:07 Intake & Output 08/19/24 08/20/24 08/20/24 18:59 06:59 18:59 Intake Total 560 20 180 Output Total 250 Balance 310 20 180 Weight 62 kg Intake: IV 20 20 Invasive Line 2 20 20 Oral 540 180 Output: Urine 250 Other: Voiding Method External Catheter External Catheter External Catheter # Bowel Movements 1 1 2 - Exam GENERAL EXAM: Alert, 74-year-old female, the patient seems to be less short of breath and currently she is on 4 L of O2 nasal cannula HEAD: Normocephalic and atraumatic EYES: Normal reaction of pupils, equal size. NOSE: Clear with pink turbinates. THROAT: No erythema or exudates. NECK: No masses, no JVD. CHEST: No chest wall deformity. LUNGS: Equal air entry with no crackles, wheeze, rhonchi or dullness. CVS: S1 and S2 normal with no audible murmur, regular rhythm. No extra heart sounds ABDOMEN: No hepatosplenomegaly, active bowel sounds, no guarding or rigidity. SPINE: No scoliosis or deformity SKIN: No rashes CENTRAL NERVOUS SYSTEM: No focal deficits, tone is normal in all 4 extremities. EXTREMITIES: There is no peripheral edema, clubbing, or cyanosis. Peripheral pulses are intact. - Labs CBC & Chem 7: 08/20/24 06:46 08/20/24 06:46 Labs: Abnormal Lab Results - Last 24 Hours (Table) 08/20/24 08/20/24 Range/Units 06:46 06:46 WBC 14.37 H (4.50-10.00) 10*3/uL Hgb 11.7 L (12.0-15.0) g/dL Hct 35.6 L (37.2-46.3) % Sodium 132 L (137-145) mmol/L BUN 23 H (7-17) mg/dL Creatinine 0.33 L (0.52-1.04) mg/dL Glucose 114 H (74-99) mg/dL Microbiology - Last 24 Hours (Table) 08/16/24 12:59 Blood Culture - Preliminary Blood Assessment and Plan Assessment: Acute hypoxemic respiratory failure, initially the patient was on BiPAP therapy and the patient is currently on 4 L of oxygen by nasal cannula Bilateral groundglass pulmonary infiltrates, extensive involving the upper and lower lobes bilaterally. Consider atypical pneumonia. There is also background COPD as noted. The viral screen was negative at time of admission and the general urine antigen was also negative. The patient remains on a combination of Rocephin and Zithromax Acute leukocytosis, improving slowly Current ongoing tobacco dependence, over [id number] history Obstructive sleep apnea with home CPAP Hypertension History of kyphoplasty GERD Anxiety Plan: Patient is currently 4 L of oxygen by nasal cannula Continue DuoNeb nebulized treatments [id number] Continue Perforomist and Pulmicort nebulized treatments twice a day Continue IV Solu-Medrol Continue IV Rocephin and restart Zithromax 500 mg p.o. daily Check urine Legionella antigen was negative Viral screen negative for influenza A/B, RSV, COVID CAT scan of the chest was noted and discussed with the patient Repeat chest x-ray in the morning Incentive spirometer increase mobility Clinically improving and will continue to follow. Time with Patient: Greater than 30
[2024-08-20] MEDS: LACTOBACILLUS ACIDOPHILUS/PECT 1 EACH CAPSULE PO SCH (20:54)
[2024-08-20] MEDS: cloNIDine HCL 0.1 MG TAB PO STA (20:57)
--- NOTE | 2024-08-21 08:19 | XR ---
EXAMINATION TYPE: XR chest 1V DATE OF EXAM: 08/21/2024 COMPARISON: 08/17/2024 CLINICAL INDICATION: Female, 74 years old with history of pneumonia; TECHNIQUE: Single frontal view of the chest is obtained. FINDINGS: Heart upper limits of normal in size. Diffuse coarse interstitial opacities and patchy mid and lower lung opacities persist without significant change. Suture anchors right humeral head from prior cuff repair. IMPRESSION: Ongoing diffuse interstitial infiltrates and patchy mid and lower lung opacities. [facility], Workstation: [facility], 08/21/2024 8:16 AM
[2024-08-21 08:49] LABS: HCT 34.7 % (37.2-46.3); HGB 11.6 g/dL (12.0-15.0); MCHC 33.4 g/dL (32.0-37.0); MCV 83.6 fL (80.0-97.0); Platelet Count 242 10*3/uL (140-440); RBC 4.15 10*6/uL (4.10-5.20); RDW 13.9 % (11.5-14.5); WBC 10.05 10*3/uL (4.50-10.00)
--- NOTE | 2024-08-21 08:57 | CA ---
Transthoracic Echo Report Name: Nicolette North Age: 74 Gender: F : 1950 Exam Date: 08/20/2024 14:01 Exam Location: [facility] Ht (in): 64 Wt (lb): 136 Ordering Physician: Anu Morley MD Attending/Referring Phys: [employer] Operator Yasmany Toure RDCS Procedure CPT: Indications: r/o chf Cardiac Hx: Technical Quality: Technically difficult study Contrast 1: Definity Total Dose (mL): 2 Contrast 2: Total Dose (mL): MEASUREMENTS (Male / Female) Normal Values 2D ECHO LV Diastolic Diameter PLAX 4.7 cm 4.2 - 5.9 / 3.9 - 5.3 cm LV Systolic Diameter PLAX 3.3 cm IVS Diastolic Thickness 0.9 cm 0.6 - 1.0 / 0.6 - 0.9 cm LVPW Diastolic Thickness 0.8 cm 0.6 - 1.0 / 0.6 - 0.9 cm LV Relative Wall Thickness 0.4 LVOT Diameter 1.7 cm LA Systolic Diameter LX 3.1 cm 3.0 - 4.0 / 2.7 - 3.8 cm LV Diastolic Volume MOD BP 101.0 cm??? 67 - 155 / 56 - 104 cm??? LV Systolic Volume MOD BP 38.8 cm??? 22 - 58 / 19 - 49 cm??? LV Ejection Fraction MOD BP 61.6 % >= 55 % LV Diastolic Volume MOD 4C 93.2 cm??? LV Systolic Volume MOD 4C 36.7 cm??? LV Ejection Fraction MOD 4C 60.6 % LV Diastolic Length 4C 7.4 cm LV Systolic Length 4C 6.8 cm LV Diastolic Volume MOD 2C 103.5 cm??? LV Systolic Volume MOD 2C 38.9 cm??? LV Ejection Fraction MOD 2C 62.5 % LV Diastolic Length 2C 7.9 cm LV Systolic Length 2C 6.4 cm LA Volume 52.2 cm??? 18 - 58 / 22 - 52 cm??? LA Volume Index 31.2 cm???/m??? 16 - 28 cm???/m??? DOPPLER MV Area PHT 4.3 cm??? Mitral E Point Velocity 92.8 cm/s Mitral A Point Velocity 88.0 cm/s Mitral E to A Ratio 1.1 MV Deceleration Time 174.5 ms TR Peak Velocity 255.9 cm/s TR Peak Gradient 26.2 mmHg Right Atrial Pressure 10.0 mmHg Pulmonary Artery Systolic Pressu 36.2 mmHg Right Ventricular Systolic Press 36.2 mmHg FINDINGS Left Ventricle Left ventricular ejection fraction is estimated at 60-65 %. Normal left ventricular systolic function with no obvious regional wall motion abnormalities. Left ventricular cavity size normal. Left ventricular wall thickness normal. Right Ventricle Normal right ventricular size and function. Mild pulmonary hypertension. Right Atrium Normal right atrial size. Left Atrium Mildly increased left atrial volume. Mitral Valve Mitral annular calcification. No mitral stenosis. Trace mitral regurgitation. Aortic Valve Trileaflet aortic valve. No aortic stenosis. No aortic regurgitation. Tricuspid Valve Structurally normal tricuspid valve. No tricuspid stenosis. Trace tricuspid regurgitation. Pulmonic Valve Structurally normal pulmonic valve. No pulmonic regurgitation. Trace pulmonic regurgitation. Pericardium No pericardial effusion. Aorta Normal size aortic root and proximal ascending aorta. CONCLUSIONS Technically difficult study. LVEF 60% No obvious regional wall motion abnormality Normal RV size and systolic function. RVSP 36 mmHg No significant valvular dysfunction Mild left atrial dilatation Mitral annular calcification noticed Previewed by: Dr Michael Ramachandran (Electronically Signed) Final Date: 21 August 2024 08:56
[2024-08-21 09:00] VITALS: BMI 23.4
[2024-08-21 09:06] LABS: African American GFR (CKD) >90 (>60 ml/min/1.73 sqM); Anion Gap 9 mmol/L; Blood Urea Nitrogen 16 mg/dL (7-17); Calcium 9.2 mg/dL (8.4-10.2); Carbon Dioxide 22 mmol/L (22-30); Chloride 101 mmol/L (98-107); Glucose 208 mg/dL (74-99); Non-African American GFR(CKD) >90 (>60 ml/min/1.73 sqM); Potassium 3.2 mmol/L (3.5-5.1); Sodium 132 mmol/L (137-145)
[2024-08-21] MEDS: POTASSIUM CHLORIDE ER 20 MEQ TAB.ER PO STA (10:02)
--- NOTE | 2024-08-21 15:19 | P.PN ---
Subjective Progress Note Date: 08/21/24 74-year-old female with a past medical history hypertension, hyperlipidemia, anxiety, COPD with continued nicotine dependence, and obstructive sleep apnea CPAP dependent. She presented to our facility with a chief complaint of shortness of breath. Upon arrival to our facility, patient underwent evaluation in the emergency department. Vital signs upon arrival show blood pressure 129/78, heart rate 103, respiratory rate 26, temp 98.3 F, and SpO2 of 79% on room air. EKG completed showing normal sinus rhythm at 93 bpm with T wave inversion in lateral lead aVL. Chest x-ray completed showing no acute cardiopulmonary process most consistent with bilateral multifocal pneumonia. Labs completed and reviewed. CBC showing leukocytosis with WBC count of 13.60, immature granulocytes of 0.07, and neutrophils of 12.12. BMP showing mild hyponatremia with sodium of 134 otherwise normal findings. Blood glucose 102. Lactic acid 1.4. Calcium 9.6. Magnesium 1.9. Liver profile showing elevated AST otherwise normal findings. Troponin was negative at less than 0.012 and proBNP was 1580. D-dimer was slightly elevated at 0.61 but normal with age correction. Patient was started on bronchodilators, steroids, IV Rocephin/Azithromycin and admitted for further workup and management. 08/20 Patient was seen and examined. Improved breathing. Having significant diarrhea, C. diff was checked and was negative. 94% on 5L NC. Using BiPAP overnight. CT chest showing diffuse ground glass opacities bilaterally. CBC and BMP significant for WBC 14.37, Hg 11.7, Hct 35.6, Na 132, BUN 23, Cr 0.33, glu 114. 08/21 Patient was seen and examined. Improved breathing. Diarrhea improved. 94% on 2L NC. CXR done this morning shows improved bilateral infiltrates. Echo shows EF 60-65%. CBC and BMP significant for WBC 10.05, Hg 11.6, Hct 34.7, Na 132, K 3.2, Cr 0.38, glu 208. General: non toxic, no distress, appears at stated age Derm: warm, dry Head: atraumatic, normocephalic, symmetric Eyes: EOMI, no lid lag, anicteric sclera Mouth: no lip lesion, mucus membranes moist Cardiovascular: S1S2 reg, no murmur Lungs: Decreased BS bilaterally , no accessory muscle use Ext: no gross muscle atrophy, no edema, no contractures Neuro: no focal neuro deficits Psych: Alert, oriented, appropriate affect Based on my assessment of this patient, this patient meets a high complexity level of care. Acute respiratory failure with hypoxia and Sepsis secondary to multifocal pneumonia and underlying COPD: COVID, RSV, Flu neg. Legionella neg. BCx neg so far. BiPAP PRN. DuoNeb QID scheduled and PRN SOB/wheezing. SoluMedrol 60 mg IV Q6H. Supplemental O2 to maintain O2 sat > 92%. Continue Rocephin 2g IV QD. Completed 3 days of Azithromycin 500 mg PO QD. Pulmonary on board. Hypertension: Benazepril 40 mg PO QD and Diltiazem 180 mg PO QD. Anxiety with depression: Fluoxetine 40 mg PO QD and Ativan 0.5 mg IVP Q6H PRN anxiety. GERD: Protonix 40 mg PO QD. Nicotine dependence: Nicotine patch 21 mg daily. Obstructive sleep apnea: Continue BiPAP QHS and PRN. CODE STATUS: FULL CODE DVT Prophylaxis: Lovenox SQ GI Prophylaxis: Protonix Designated medical POA if patient is not able to make medical decisions for themselves: I have reviewed the following sec reporting consultant notes: Pulm note. I have reviewed the results of the following tests: CBC, BMP. I have ordered the following tests: CBC and BMP in the AM. I have discussed the care of this patient with the following independent historian: VESTA. I have independently interpreted the following test below: I have discussed the management of this patient with the following physician: Objective - Vital Signs Vital signs: Vital Signs Temp 97.8 F 08/21/24 11:18 Pulse 88 08/21/24 13:33 Resp 18 08/21/24 13:33 BP 155/82 08/21/24 11:18 Pulse Ox 94 L 08/21/24 11:18 FiO2 40 08/21/24 09:49 Intake & Output 08/20/24 08/21/24 08/21/24 18:59 06:59 18:59 Intake Total 660 20 318 Output Total 450 Balance 210 20 318 Weight 62 kg Intake: IV 20 20 Invasive Line 3 20 20 Oral 660 298 Output: Urine 450 Other: Voiding Method External Catheter External Catheter Toilet # Voids 3 # Bowel Movements 1 - Labs CBC & Chem 7: 08/21/24 08:23 08/21/24 08:23 Labs: Abnormal Lab Results - Last 24 Hours (Table) 08/21/24 08/21/24 Range/Units 08:23 08:23 WBC 10.05 H (4.50-10.00) 10*3/uL Hgb 11.6 L (12.0-15.0) g/dL Hct 34.7 L (37.2-46.3) % Sodium 132 L (137-145) mmol/L Potassium 3.2 L (3.5-5.1) mmol/L Creatinine 0.38 L (0.52-1.04) mg/dL Glucose 208 H (74-99) mg/dL Microbiology - Last 24 Hours (Table) 08/20/24 14:30 Gram Stain - Preliminary Sputum Sputum Culture - Preliminary
--- NOTE | 2024-08-21 18:08 | P.PN ---
Subjective Progress Note Date: 08/21/24 Patient is a 74-year-old female with past medical history significant for hypertension, current ongoing tobacco dependence, obstructive sleep apnea with home CPAP, anxiety. Presented to the emergency department yesterday afternoon with chief complaint of difficulty in breathing. Developing over the last 24-36 hours. Pulse oximeter reportedly reading 70s. Workup in the ED including a chest x-ray remarkable for bilateral hilar infiltrates. Labs including a CBC with a WBC count of 13.6. Hemoglobin 13.7 g/dL. Platelets 249. D-dimer 0.61. CMP unremarkable, electrolytes WDL, creatinine 0.53, glucose 102. Troponin less than 0.012. NT proBNP 1580. Viral screen negative for influenza A/B, RSV, C OVID. Patient currently being evaluated in the emergency department. On BiPAP with settings 12/6 and FiO2 of 40%. Mildly tachypneic, however, not in any distress. Able to carry out conversation. Endorsing shortness of breath progressing rapidly over the last 24 to 36 hours. Associated persistent dry cough and chest tightness. No sputum production or hemoptysis. Denies any nausea, vomiting, diarrhea. No fevers/chills. No notable sick contacts. Did have recent airplane travel, returned from [place] approximately 2 weeks ago. Feeling relatively well up until 24-36 hours ago. Denies any chest pain, heart palpitations, lightheadedness or syncopal events, lower extremity edema. No history of DVT/PE. Denies history of known COPD or asthma. She does not use any inhalers at home. She does smoke 1/2 pack of cigarettes per day and has done so for over 40 years. Previously started on azithromycin and Rocephin in the ED. Also being treated for COPD exacerbation, receiving DuoNebs amol [id number] and IV Solu-Medrol. 08/18/2024, the patient is being seen for a follow-up. The patient is still on the BiPAP at pressures of 13 over 6 cm of water. The patient is comfortable. Slightly tachypneic. Denies having any chest pain. No significant cough or sputum production. The white seconds at 19.2 with a hemoglobin of 11.4 and a platelet count of 271. BUN is 20 with a creatinine of 0.5. Sodium levels at 135. Viral screen was negative. Legionella urine antigen was negative. Hemodynamically stable. Remains on bronchodilators and IV Solu-Medrol Remains on IV Rocephin. 08/19/2024, the patient is being seen for a follow-up. The patient is feeling better. The patient is currently off BiPAP and she is still hypoxic range between 5 to 6 L of oxygen by nasal cannula. Based on the reported abnormalities on chest x-ray, a CT of the chest was ordered and the patient was found to have diffuse groundglass opacities bilaterally consistent with atypical pneumonia. Noted the viral screen was negative at the time of admission. Nevertheless, the patient is feeling better. She feels less short of breath. The white cell count is 15.4 and hemoglobin is at 11.7 and the platelet count of 269. BUN is 28 with a creatinine of 0.56 and a sodium noted at 136. Legionella urine antigen was negative at time of admission. Remains on DuoNeb updrafts. Remains on Perforomist and Pulmicort and remains on IV Solu-Medrol. Antibiotic coverage is with IV Rocephin. Will add Zithromax again regarding the atypical nature of this bilateral pneumonia. 08/20/2024, the patient is being seen for a follow-up. The patient is doing well. She feels less short of breath. She remains hypoxic and her oxygen requirements have improved and the patient is currently on 40 Suboxone by nasal cannula. CAT scan of the chest was noted from yesterday and the patient has bilateral pulmonary infiltrates consistent with pneumonia and the patient remains on a combination of Rocephin and Zithromax. Consider the possibility of an atypical pneumonia. The white cell count 14.3 with a hemoglobin 11.7 and platelet count of 235. BUN is 23 with a creatinine of 0.33. Electrolytes all within normal limits. Remains on DuoNeb treatments [id number]. Remains on IV Solu-Medrol. Remains on Lovenox for DVT prophylaxis. Cultures have been negative including blood cultures. 08/21/2024, seen the patient for a follow-up. The patient is calm and comfortable. The patient is feeling less short of breath. Oxygenation continues to improve and the patient is currently on 2 L of oxygen by nasal cannula pulse ox of 95%. The patient had bilateral pulmonary infiltrates confirmed on a CAT scan of the chest. Chest x-ray continues to show similar infiltrates. Clinically however, the patient is improving. The patient remains on IV Rocephin. She is also on Zithromax 5 mg p.o. daily for atypical coverage. Bronchodilators remain unchanged. The patient remains on IV Solu-Medrol 60 mg every 6 hours. The white cell count is at 10 with a hemoglobin of 11.6 and a platelet count of 242. BUN 16 with a creatinine of 0.3. Sodium levels at 132 and a potassium level is at 3.2. Stool for C. difficile has been negative Objective - Vital Signs Vital signs: Vital Signs Temp 97.6 F 08/21/24 15:16 Pulse 81 08/21/24 15:16 Resp 16 08/21/24 15:16 BP 137/78 08/21/24 15:16 Pulse Ox 95 08/21/24 15:16 FiO2 40 08/21/24 09:49 Intake & Output 08/20/24 08/21/24 08/21/24 18:59 06:59 18:59 Intake Total 339 11 0672 Output Total 450 Balance 502 77 9721 Weight 62 kg Intake: IV 20 20 Invasive Line 3 20 20 Intake, IV Titration 50 Amount cefTRIAXone 1 gm In 50 Sodium Chloride 0.9% 50 ml @ 100 mls/hr IVPB Q24HR [facility] Rx#:[id number] Oral 660 1016 Output: Urine 450 Other: Voiding Method External Catheter External Catheter Toilet # Voids 3 # Bowel Movements 1 - Exam GENERAL EXAM: Alert, 74-year-old female, the patient seems to be less short of breath and currently she is on 2 L O2 nasal cannula HEAD: Normocephalic and atraumatic EYES: Normal reaction of pupils, equal size. NOSE: Clear with pink turbinates. THROAT: No erythema or exudates. NECK: No masses, no JVD. CHEST: No chest wall deformity. LUNGS: Equal air entry with no crackles, wheeze, rhonchi or dullness. CVS: S1 and S2 normal with no audible murmur, regular rhythm. No extra heart sounds ABDOMEN: No hepatosplenomegaly, active bowel sounds, no guarding or rigidity. SPINE: No scoliosis or deformity SKIN: No rashes CENTRAL NERVOUS SYSTEM: No focal deficits, tone is normal in all 4 extremities. EXTREMITIES: There is no peripheral edema, clubbing, or cyanosis. Peripheral pulses are intact. - Labs CBC & Chem 7: 08/21/24 08:23 08/21/24 08:23 Labs: Abnormal Lab Results - Last 24 Hours (Table) 08/21/24 08/21/24 Range/Units 08:23 08:23 WBC 10.05 H (4.50-10.00) 10*3/uL Hgb 11.6 L (12.0-15.0) g/dL Hct 34.7 L (37.2-46.3) % Sodium 132 L (137-145) mmol/L Potassium 3.2 L (3.5-5.1) mmol/L Creatinine 0.38 L (0.52-1.04) mg/dL Glucose 208 H (74-99) mg/dL Microbiology - Last 24 Hours (Table) 08/20/24 14:30 Gram Stain - Preliminary Sputum Sputum Culture - Preliminary Assessment and Plan Assessment: Acute hypoxemic respiratory failure, initially the patient was on BiPAP therapy and the patient is currently on 2 L O2 nasal cannula, and the patient is stable without having any major respiratory difficulties. Bilateral groundglass pulmonary infiltrates, extensive involving the upper and l ower lobes bilaterally. Consider atypical pneumonia. There is also background COPD as noted. The viral screen was negative at time of admission and the general urine antigen was also negative. The patient remains on a combination of Rocephin and Zithromax. Chest x-ray was noted and the patient has bilateral breast implants which is somewhat obscuring the underlying pulmonary infiltrates. Nevertheless, clinically patient is improving. Acute leukocytosis, improving slowly Current ongoing tobacco dependence, over [id number] history Obstructive sleep apnea with home CPAP Hypertension History of kyphoplasty GERD Anxiety Plan: Patient is currently 2 L of oxygen by nasal cannula Continue DuoNeb nebulized treatments [id number] Continue Perforomist and Pulmicort nebulized treatments twice a day Continue IV Solu-Medrol Continue IV Rocephin and restart Zithromax 500 mg p.o. daily Check urine Legionella antigen was negative Viral screen negative for influenza A/B, RSV, COVID CAT scan of the chest was noted and discussed with the patient Repeat chest x-ray in the morning was noted Incentive spirometer increase mobility Clinically improving and will continue to follow. Time with Patient: Greater than 30
[2024-08-21] MEDS: ZOLPIDEM 5 MG TAB PO PRN (21:05)
[2024-08-22 07:22] LABS: HCT 35.5 % (37.2-46.3); HGB 11.8 g/dL (12.0-15.0); MCH 27.9 pg (27.0-32.0); MCHC 33.2 g/dL (32.0-37.0); MCV 83.9 fL (80.0-97.0); Mean Platelet Volume 9.5 fL (9.5-12.2); Platelet Count 244 10*3/uL (140-440); RBC 4.23 10*6/uL (4.10-5.20); WBC 11.35 10*3/uL (4.50-10.00)
[2024-08-22 07:35] LABS: African American GFR (CKD) >90 (>60 ml/min/1.73 sqM); Anion Gap 8 mmol/L; Blood Urea Nitrogen 19 mg/dL (7-17); Calcium 9.1 mg/dL (8.4-10.2); Carbon Dioxide 20 mmol/L (22-30); Chloride 103 mmol/L (98-107); Glucose 146 mg/dL (74-99); Non-African American GFR(CKD) >90 (>60 ml/min/1.73 sqM); Potassium 3.7 mmol/L (3.5-5.1); Sodium 131 mmol/L (137-145)
--- NOTE | 2024-08-22 13:27 | P.PN ---
Subjective Progress Note Date: 08/22/24 74-year-old female with a past medical history hypertension, hyperlipidemia, anxiety, COPD with continued nicotine dependence, and obstructive sleep apnea CPAP dependent. She presented to our facility with a chief complaint of shortness of breath. Upon arrival to our facility, patient underwent evaluation in the emergency department. Vital signs upon arrival show blood pressure 129/78, heart rate 103, respiratory rate 26, temp 98.3 F, and SpO2 of 79% on room air. EKG completed showing normal sinus rhythm at 93 bpm with T wave inversion in lateral lead aVL. Chest x-ray completed showing no acute cardiopulmonary process most consistent with bilateral multifocal pneumonia. Labs completed and reviewed. CBC showing leukocytosis with WBC count of 13.60, immature granulocytes of 0.07, and neutrophils of 12.12. BMP showing mild hyponatremia with sodium of 134 otherwise normal findings. Blood glucose 102. Lactic acid 1.4. Calcium 9.6. Magnesium 1.9. Liver profile showing elevated AST otherwise normal findings. Troponin was negative at less than 0.012 and proBNP was 1580. D-dimer was slightly elevated at 0.61 but normal with age correction. Patient was started on bronchodilators, steroids, IV Rocephin/Azithromycin and admitted for further workup and management. 08/20 Patient was seen and examined. Improved breathing. Having significant diarrhea, C. diff was checked and was negative. 94% on 5L NC. Using BiPAP overnight. CT chest showing diffuse ground glass opacities bilaterally. CBC and BMP significant for WBC 14.37, Hg 11.7, Hct 35.6, Na 132, BUN 23, Cr 0.33, glu 114. 08/21 Patient was seen and examined. Improved breathing. Diarrhea improved. 94% on 2L NC. CXR done this morning shows improved bilateral infiltrates. Echo shows EF 60-65%. CBC and BMP significant for WBC 10.05, Hg 11.6, Hct 34.7, Na 132, K 3.2, Cr 0.38, glu 208. 08/22 Patient was seen and examined. Improved breathing, now on RA. CBC and BMP significant for WBC 11.35, Hg 11.8, Hct 35.5, Na 131, bicarb 20, BUN 19, Cr 0.44, glu 146. General: non toxic, no distress, appears at stated age Derm: warm, dry Head: atraumatic, normocephalic, symmetric Eyes: EOMI, no lid lag, anicteric sclera Mouth: no lip lesion, mucus membranes moist Cardiovascular: good distal perfusion in all 4 extremities Lungs: breathing comfortably, no accessory muscle use Ext: no gross muscle atrophy, no edema, no contractures Neuro: no focal neuro deficits Psych: Alert, oriented, appropriate affect Based on my assessment of this patient, this patient meets a high complexity level of care. Acute respiratory failure with hypoxia and Sepsis secondary to multifocal pneumonia and underlying COPD: COVID, RSV, Flu neg. Legionella neg. BCx neg so far. BiPAP PRN. DuoNeb QID scheduled and PRN SOB/wheezing. SoluMedrol 60 mg IV Q6H. Supplemental O2 to maintain O2 sat > 92%. Continue Rocephin 2g IV QD. Completed 3 days of Azithromycin 500 mg PO QD already, restarted on 08/22. Repeat CXR in the AM. Pulmonary on board. Hypertension: Benazepril 40 mg PO QD. Cardizem 60 mg PO x 1 today and increase Diltiazem from 180 to 240 mg PO QD starting tomorrow. Anticipate improvement as steroids wean off. Anxiety with depression: Fluoxetine 40 mg PO QD and Ativan 0.5 mg IVP Q6H PRN anxiety. GERD: Protonix 40 mg PO QD. Nicotine dependence: Nicotine patch 21 mg daily. Obstructive sleep apnea: Continue BiPAP QHS and PRN. Hopeful discharge tomorrow if able to maintain O2 sat > 90% on RA. Cardizem increased due to elevated BPs. CODE STATUS: FULL CODE DVT Prophylaxis: Lovenox SQ GI Prophylaxis: Protonix Designated medical POA if patient is not able to make medical decisions for themselves: I have reviewed the following natural remedy consultant notes: Pulm note. I have reviewed the results of the following tests: CBC, BMP. I have ordered the following tests: CBC and BMP in the AM. I have discussed the care of this patient with the following independent historian: VESTA. Family I have independently interpreted the following test below: I have discussed the management of this patient with the following physician: Objective - Vital Signs Vital signs: Vital Signs Temp 98.1 F 08/22/24 12:25 Pulse 81 08/22/24 12:25 Resp 18 08/22/24 12:25 BP 171/91 06/28/25 12:25 Pulse Ox 94 L 08/22/24 12:25 FiO2 40 08/21/24 09:49 Intake & Output 08/21/24 08/22/24 08/22/24 18:59 06:59 18:59 Intake Total 1086 500 Balance 1086 500 Weight 62 kg 59.7 kg Intake: IV 20 20 Invasive Line 3 20 20 Intake, IV Titration 50 Amount cefTRIAXone 1 gm In 50 Sodium Chloride 0.9% 50 ml @ 100 mls/hr IVPB Q24HR [facility] Rx#:[id number] Oral [id number] Other: Voiding Method Toilet Toilet Toilet - Labs CBC & Chem 7: 08/22/24 07:00 08/22/24 07:00 Labs: Abnormal Lab Results - Last 24 Hours (Table) 08/22/24 08/22/24 Range/Units 07:00 07:00 WBC 11.35 H (4.50-10.00) 10*3/uL Hgb 11.8 L (12.0-15.0) g/dL Hct 35.5 L (37.2-46.3) % Sodium 131 L (137-145) mmol/L Carbon Dioxide 20 L (22-30) mmol/L BUN 19 H (7-17) mg/dL Creatinine 0.44 L (0.52-1.04) mg/dL Glucose 146 H (74-99) mg/dL Microbiology - Last 24 Hours (Table) 08/20/24 14:30 Gram Stain - Final Sputum Sputum Culture - Final 08/16/24 12:59 Blood Culture - Final Blood
[2024-08-22] MEDS: DILTIAZEM ORAL 60 MG TAB PO STA (14:01)
--- NOTE | 2024-08-22 23:39 | P.PN ---
Subjective Progress Note Date: 08/22/24 Patient is a 74-year-old female with past medical history significant for hypertension, current ongoing tobacco dependence, obstructive sleep apnea with home CPAP, anxiety. Presented to the emergency department yesterday afternoon with chief complaint of difficulty in breathing. Developing over the last 24-36 hours. Pulse oximeter reportedly reading 70s. Workup in the ED including a chest x-ray remarkable for bilateral hilar infiltrates. Labs including a CBC with a WBC count of 13.6. Hemoglobin 13.7 g/dL. Platelets 249. D-dimer 0.61. CMP unremarkable, electrolytes WDL, creatinine 0.53, glucose 102. Troponin less than 0.012. NT proBNP 1580. Viral screen negative for influenza A/B, RSV, C OVID. Patient currently being evaluated in the emergency department. On BiPAP with settings 12/6 and FiO2 of 40%. Mildly tachypneic, however, not in any distress. Able to carry out conversation. Endorsing shortness of breath progressing rapidly over the last 24 to 36 hours. Associated persistent dry cough and chest tightness. No sputum production or hemoptysis. Denies any nausea, vomiting, diarrhea. No fevers/chills. No notable sick contacts. Did have recent airplane travel, returned from [place] approximately 2 weeks ago. Feeling relatively well up until 24-36 hours ago. Denies any chest pain, heart palpitations, lightheadedness or syncopal events, lower extremity edema. No history of DVT/PE. Denies history of known COPD or asthma. She does not use any inhalers at home. She does smoke 1/2 pack of cigarettes per day and has done so for over 40 years. Previously started on azithromycin and Rocephin in the ED. Also being treated for COPD exacerbation, receiving DuoNebs amol [id number] and IV Solu-Medrol. 08/18/2024, the patient is being seen for a follow-up. The patient is still on the BiPAP at pressures of 13 over 6 cm of water. The patient is comfortable. Slightly tachypneic. Denies having any chest pain. No significant cough or sputum production. The white seconds at 19.2 with a hemoglobin of 11.4 and a platelet count of 271. BUN is 20 with a creatinine of 0.5. Sodium levels at 135. Viral screen was negative. Legionella urine antigen was negative. Hemodynamically stable. Remains on bronchodilators and IV Solu-Medrol Remains on IV Rocephin. 08/19/2024, the patient is being seen for a follow-up. The patient is feeling better. The patient is currently off BiPAP and she is still hypoxic range between 5 to 6 L of oxygen by nasal cannula. Based on the reported abnormalities on chest x-ray, a CT of the chest was ordered and the patient was found to have diffuse groundglass opacities bilaterally consistent with atypical pneumonia. Noted the viral screen was negative at the time of admission. Nevertheless, the patient is feeling better. She feels less short of breath. The white cell count is 15.4 and hemoglobin is at 11.7 and the platelet count of 269. BUN is 28 with a creatinine of 0.56 and a sodium noted at 136. Legionella urine antigen was negative at time of admission. Remains on DuoNeb updrafts. Remains on Perforomist and Pulmicort and remains on IV Solu-Medrol. Antibiotic coverage is with IV Rocephin. Will add Zithromax again regarding the atypical nature of this bilateral pneumonia. 08/20/2024, the patient is being seen for a follow-up. The patient is doing well. She feels less short of breath. She remains hypoxic and her oxygen requirements have improved and the patient is currently on 40 Suboxone by nasal cannula. CAT scan of the chest was noted from yesterday and the patient has bilateral pulmonary infiltrates consistent with pneumonia and the patient remains on a combination of Rocephin and Zithromax. Consider the possibility of an atypical pneumonia. The white cell count 14.3 with a hemoglobin 11.7 and platelet count of 235. BUN is 23 with a creatinine of 0.33. Electrolytes all within normal limits. Remains on DuoNeb treatments [id number]. Remains on IV Solu-Medrol. Remains on Lovenox for DVT prophylaxis. Cultures have been negative including blood cultures. 08/21/2024, seen the patient for a follow-up. The patient is calm and comfortable. The patient is feeling less short of breath. Oxygenation continues to improve and the patient is currently on 2 L of oxygen by nasal cannula pulse ox of 95%. The patient had bilateral pulmonary infiltrates confirmed on a CAT scan of the chest. Chest x-ray continues to show similar infiltrates. Clinically however, the patient is improving. The patient remains on IV Rocephin. She is also on Zithromax 5 mg p.o. daily for atypical coverage. Bronchodilators remain unchanged. The patient remains on IV Solu-Medrol 60 mg every 6 hours. The white cell count is at 10 with a hemoglobin of 11.6 and a platelet count of 242. BUN 16 with a creatinine of 0.3. Sodium levels at 132 and a potassium level is at 3.2. Stool for C. difficile has been negative On 08/14/2024, the patient continues to improve. No new complaints. The patient is currently on 2 L of oxygen by nasal cannula to maintain an oxygen saturation above 90%. His most recent pulse ox is 94%. Able to speak in full sentences. No chest pain. No pleurisy. No hemoptysis. Clinically improving and on today's blood work, the patient's white cell count is 11.3 with a hemoglobin 11.8 and a platelet count of 244. BN is 19 with a creatinine of 0.4. Sodium levels at 131. Stool for C. difficile has been negative. Remains on DuoNeb nebulizer treatments [id number]. Remains on Rocephin and Zithromax. Remains on Lovenox for DVT prophylaxis. Remains on IV Solu-Medrol 60 mg every 6 hours. Rest of the medications are essentially unchanged. Objective - Vital Signs Vital signs: Vital Signs Temp 98.3 F 08/22/24 07:16 Pulse 82 08/22/24 07:16 Resp 18 08/22/24 07:16 BP 182/99 08/22/24 07:16 Pulse Ox 92 L 08/22/24 07:16 FiO2 40 08/21/24 09:49 Intake & Output 08/21/24 08/22/24 08/22/24 18:59 06:59 18:59 Intake Total 1086 500 Balance 1086 500 Weight 62 kg 59.7 kg Intake: IV 20 20 Invasive Line 3 20 20 Intake, IV Titration 50 Amount cefTRIAXone 1 gm In 50 Sodium Chloride 0.9% 50 ml @ 100 mls/hr IVPB Q24HR [facility] Rx#:[id number] Oral [id number] Other: Voiding Method Toilet Toilet Toilet - Exam GENERAL EXAM: Alert, 74-year-old female, the patient seems to be less short of breath and currently she is on 2 L O2 nasal cannula HEAD: Normocephalic and atraumatic EYES: Normal reaction of pupils, equal size. NOSE: Clear with pink turbinates. THROAT: No erythema or exudates. NECK: No masses, no JVD. CHEST: No chest wall deformity. LUNGS: Equal air entry with no crackles, wheeze, rhonchi or dullness. CVS: S1 and S2 normal with no audible murmur, regular rhythm. No extra heart sounds ABDOMEN: No hepatosplenomegaly, active bowel sounds, no guarding or rigidity. SPINE: No scoliosis or deformity SKIN: No rashes CENTRAL NERVOUS SYSTEM: No focal deficits, tone is normal in all 4 extremities. EXTREMITIES: There is no peripheral edema, clubbing, or cyanosis. Peripheral pulses are intact. - Labs CBC & Chem 7: 08/22/24 07:00 08/22/24 07:00 Labs: Abnormal Lab Results - Last 24 Hours (Table) 08/22/24 08/22/24 Range/Units 07:00 07:00 WBC 11.35 H (4.50-10.00) 10*3/uL Hgb 11.8 L (12.0-15.0) g/dL Hct 35.5 L (37.2-46.3) % Sodium 131 L (137-145) mmol/L Carbon Dioxide 20 L (22-30) mmol/L BUN 19 H (7-17) mg/dL Creatinine 0.44 L (0.52-1.04) mg/dL Glucose 146 H (74-99) mg/dL Microbiology - Last 24 Hours (Table) 08/20/24 14:30 Gram Stain - Final Sputum Sputum Culture - Final 08/16/24 12:59 Blood Culture - Final Blood Assessment and Plan Assessment: Acute hypoxemic respiratory failure, initially the patient was on BiPAP therapy and the patient is currently on 2 L O2 nasal cannula, and the patient is stable without having any major respiratory difficulties. Bilateral groundglass pulmonary infiltrates, extensive involving the upper and lower lobes bilaterally. Consider atypical pneumonia. There is also background COPD as noted. The viral screen was negative at time of admission and the general urine antigen was also negative. The patient remains on a combination of Rocephin and Zithromax. Chest x-ray was noted and the patient has bilateral breast implants which is somewhat obscuring the underlying pulmonary infiltrates. Nevertheless, clinically patient is improving. Acute leukocytosis, improving slowly Current ongoing tobacco dependence, over [id number] history Obstructive sleep apnea with home CPAP Hypertension History of kyphoplasty GERD Anxiety Plan: Clinically improving Patient is currently 2 L of oxygen by nasal cannula, wean down FiO2 as tolerated, and monitor the patient's oxygenation. Continue DuoNeb nebulized treatments [id number] Continue Perforomist and Pulmicort nebulized treatments twice a day Continue IV Solu-Medrol, will switch to a prednisone burst taper within the next 24 hours Continue IV Rocephin and Zithromax 500 mg p.o. daily Check urine Legionella antigen was negative Viral screen negative for influenza A/B, RSV, COVID CAT scan of the chest was noted and discussed with the patient Repeat chest x-ray in the morning was noted Incentive spirometer increase mobility Clinically improving and will continue to follow.
--- NOTE | 2024-08-23 07:11 | XR ---
EXAMINATION TYPE: XR chest 1V portable DATE OF EXAM: 08/23/2024 6:49 AM COMPARISON: Chest radiographs from 08/21/2024 CLINICAL INDICATION: Female, 74 years old with history of PNA; [facility] TECHNIQUE: XR chest 1V portable Frontal view of the chest. FINDINGS: Lungs/Pleura: There is no evidence of pleural effusion, focal consolidation, or pneumothorax. Pulmonary vascularity: Unremarkable. Heart/mediastinum: Cardiomediastinal silhouette is unremarkable. Musculoskeletal: No acute osseous pathology. Right rotator repair anchors. IMPRESSION: Subtle scattered opacities which may represent an atypical pneumonia. [facility], , 08/23/2024 7:09 AM
--- NOTE | 2024-08-23 08:31 | P.PN ---
Subjective Progress Note Date: 08/23/24 74-year-old female with a past medical history hypertension, hyperlipidemia, anxiety, COPD with continued nicotine dependence, and obstructive sleep apnea CPAP dependent. She presented to our facility with a chief complaint of shortness of breath. Upon arrival to our facility, patient underwent evaluation in the emergency department. Vital signs upon arrival show BP 129/78, HR 103, RR 26, T 98.3 F, and SpO2 of 79% on RA. EKG completed showing normal sinus rhythm at 93 bpm with T wave inversion in lateral lead aVL. Chest x-ray consistent with bilateral multifocal pneumonia. CBC showing leukocytosis with WBC count of 13.60, immature granulocytes of 0.07, and neutrophils of 12.12. BMP showing mild hyponatremia with sodium of 134 otherwise normal findings. Blood glucose 102. Lactic acid 1.4. Calcium 9.6. Magnesium 1.9. Liver profile showing elevated AST otherwise normal findings. Troponin was negative at less than 0.012 and proBNP was 1580. D-Dimer was slightly elevated at 0.61 but normal with age correction. Patient was started on bronchodilators, steroids, IV Rocephin/Azithromycin and admitted for further workup and management. Pulmonary consulted. Intermittently used BiPAP. CT chest showed diffuse ground glass opacities bilaterally. Echo showed EF 60-65%. She did have significant diarrhea on 08/20, C. diff was negative, started on Imodium and probiotics, now improved. 08/23 Patient was seen and examined. Improved breathing, now on RA. O2 sat in the low 90s. No more diarrhea. No new labs done at the time of this note. CXR shows improved aeration of the lungs. General: non toxic, no distress, appears at stated age Derm: warm, dry Head: atraumatic, normocephalic, symmetric Eyes: EOMI, no lid lag, anicteric sclera Mouth: no lip lesion, mucus membranes moist Cardiovascular: S1 S2 tachy. No murmurs. Lungs: Clear to auscultation bilaterally, no accessory muscle use Ext: no gross muscle atrophy, no edema, no contractures Neuro: no focal neuro deficits Psych: Alert, oriented, appropriate affect Based on my assessment of this patient, this patient meets a high complexity level of care. Acute respiratory failure with hypoxia and Sepsis secondary to multifocal pne umonia and underlying COPD: COVID, RSV, Flu neg. Legionella neg. BCx neg so far. BiPAP PRN. DuoNeb QID scheduled and PRN SOB/wheezing. SoluMedrol 60 mg IV Q6H. Supplemental O2 to maintain O2 sat > 92%. Continue Rocephin 2g IV QD. Completed 3 days of Azithromycin 500 mg PO QD already, restarted on 08/22. Home O2 eval ordered discussed with RN. Pulmonary on board. Hypertension: BP 160/82. Benazepril 40 mg PO QD. Diltiazem increased from 180 to 240 mg PO QD. Anticipate improvement as steroids wean off. Anxiety with depression: Fluoxetine 40 mg PO QD and Ativan 0.5 mg IVP Q6H PRN anxiety. GERD: Protonix 40 mg PO QD. Nicotine dependence: Nicotine patch 21 mg daily. Obstructive sleep apnea: Continue BiPAP QHS and PRN. Home O2 eval ordered. Anticipate DC today or tomorrow if able to pass home O2 eval. CODE STATUS: FULL CODE DVT Prophylaxis: Lovenox SQ GI Prophylaxis: Protonix Designated medical POA if patient is not able to make medical decisions for themselves: I have reviewed the following it consultant notes: I have reviewed the results of the following tests: I have ordered the following tests: I have discussed the care of this patient with the following independent histor kari: VESTA. I have independently interpreted the following test below: CXR. I have discussed the management of this patient with the following physician: Objective - Vital Signs Vital signs: Vital Signs Temp 98.0 F 08/23/24 07:20 Pulse 105 H 08/23/24 07:20 Resp 18 08/23/24 07:20 BP 160/82 08/23/24 07:20 Pulse Ox 91 L 08/23/24 07:20 FiO2 40 08/21/24 09:49 Intake & Output 08/22/24 08/23/24 08/23/24 18:59 06:59 18:59 Intake Total 540 Balance 540 Weight 62 kg Intake: Oral 540 Other: Voiding Method Toilet Toilet # Voids 2 2 # Bowel Movements 1 - Labs CBC & Chem 7: 08/22/24 07:00 08/22/24 07:00 Labs: Microbiology - Last 24 Hours (Table) 08/20/24 14:30 Gram Stain - Final Sputum Sputum Culture - Final
[2024-08-23] MEDS: DILTIAZEM CD 240 MG CAP.ER.24H PO SCH (09:44)
[2024-08-23] MEDS: AZITHROMYCIN 500 MG TAB PO SCH (09:44)
--- NOTE | 2024-08-23 21:59 | P.PN ---
Subjective Progress Note Date: 08/23/24 Patient is a 74-year-old female with past medical history significant for hypertension, current ongoing tobacco dependence, obstructive sleep apnea with home CPAP, anxiety. Presented to the emergency department yesterday afternoon with chief complaint of difficulty in breathing. Developing over the last 24-36 hours. Pulse oximeter reportedly reading 70s. Workup in the ED including a chest x-ray remarkable for bilateral hilar infiltrates. Labs including a CBC with a WBC count of 13.6. Hemoglobin 13.7 g/dL. Platelets 249. D-dimer 0.61. CMP unremarkable, electrolytes WDL, creatinine 0.53, glucose 102. Troponin less than 0.012. NT proBNP 1580. Viral screen negative for influenza A/B, RSV, C OVID. Patient currently being evaluated in the emergency department. On BiPAP with settings 12/6 and FiO2 of 40%. Mildly tachypneic, however, not in any distress. Able to carry out conversation. Endorsing shortness of breath progressing rapidly over the last 24 to 36 hours. Associated persistent dry cough and chest tightness. No sputum production or hemoptysis. Denies any nausea, vomiting, diarrhea. No fevers/chills. No notable sick contacts. Did have recent airplane travel, returned from [place] approximately 2 weeks ago. Feeling relatively well up until 24-36 hours ago. Denies any chest pain, heart palpitations, lightheadedness or syncopal events, lower extremity edema. No history of DVT/PE. Denies history of known COPD or asthma. She does not use any inhalers at home. She does smoke 1/2 pack of cigarettes per day and has done so for over 40 years. Previously started on azithromycin and Rocephin in the ED. Also being treated for COPD exacerbation, receiving DuoNebs amol [id number] and IV Solu-Medrol. 08/18/2024, the patient is being seen for a follow-up. The patient is still on the BiPAP at pressures of 13 over 6 cm of water. The patient is comfortable. Slightly tachypneic. Denies having any chest pain. No significant cough or sputum production. The white seconds at 19.2 with a hemoglobin of 11.4 and a platelet count of 271. BUN is 20 with a creatinine of 0.5. Sodium levels at 135. Viral screen was negative. Legionella urine antigen was negative. Hemodynamically stable. Remains on bronchodilators and IV Solu-Medrol Remains on IV Rocephin. 08/19/2024, the patient is being seen for a follow-up. The patient is feeling better. The patient is currently off BiPAP and she is still hypoxic range between 5 to 6 L of oxygen by nasal cannula. Based on the reported abnormalities on chest x-ray, a CT of the chest was ordered and the patient was found to have diffuse groundglass opacities bilaterally consistent with atypical pneumonia. Noted the viral screen was negative at the time of admission. Nevertheless, the patient is feeling better. She feels less short of breath. The white cell count is 15.4 and hemoglobin is at 11.7 and the platelet count of 269. BUN is 28 with a creatinine of 0.56 and a sodium noted at 136. Legionella urine antigen was negative at time of admission. Remains on DuoNeb updrafts. Remains on Perforomist and Pulmicort and remains on IV Solu-Medrol. Antibiotic coverage is with IV Rocephin. Will add Zithromax again regarding the atypical nature of this bilateral pneumonia. 08/20/2024, the patient is being seen for a follow-up. The patient is doing well. She feels less short of breath. She remains hypoxic and her oxygen requirements have improved and the patient is currently on 40 Suboxone by nasal cannula. CAT scan of the chest was noted from yesterday and the patient has bilateral pulmonary infiltrates consistent with pneumonia and the patient remains on a combination of Rocephin and Zithromax. Consider the possibility of an atypical pneumonia. The white cell count 14.3 with a hemoglobin 11.7 and platelet count of 235. BUN is 23 with a creatinine of 0.33. Electrolytes all within normal limits. Remains on DuoNeb treatments [id number]. Remains on IV Solu-Medrol. Remains on Lovenox for DVT prophylaxis. Cultures have been negative including blood cultures. 08/21/2024, seen the patient for a follow-up. The patient is calm and comfortable. The patient is feeling less short of breath. Oxygenation continues to improve and the patient is currently on 2 L of oxygen by nasal cannula pulse ox of 95%. The patient had bilateral pulmonary infiltrates confirmed on a CAT scan of the chest. Chest x-ray continues to show similar infiltrates. Clinically however, the patient is improving. The patient remains on IV Rocephin. She is also on Zithromax 5 mg p.o. daily for atypical coverage. Bronchodilators remain unchanged. The patient remains on IV Solu-Medrol 60 mg every 6 hours. The white cell count is at 10 with a hemoglobin of 11.6 and a platelet count of 242. BUN 16 with a creatinine of 0.3. Sodium levels at 132 and a potassium level is at 3.2. Stool for C. difficile has been negative On 08/14/2024, the patient continues to improve. No new complaints. The patient is currently on 2 L of oxygen by nasal cannula to maintain an oxygen saturation above 90%. His most recent pulse ox is 94%. Able to speak in full sentences. No chest pain. No pleurisy. No hemoptysis. Clinically improving and on today's blood work, the patient's white cell count is 11.3 with a hemoglobin 11.8 and a platelet count of 244. BN is 19 with a creatinine of 0.4. Sodium levels at 131. Stool for C. difficile has been negative. Remains on DuoNeb nebulizer treatments [id number]. Remains on Rocephin and Zithromax. Remains on Lovenox for DVT prophylaxis. Remains on IV Solu-Medrol 60 mg every 6 hours. Rest of the medications are essentially unchanged. On 08/23/2024, the patient is doing extremely well. She remains on 2 L of oxygen by nasal cannula. Pulse ox 95%. She is still desaturating on room air oxygen. Nevertheless, follow-up chest x-ray was done this was compared to the original chest x-ray and overall, the patient has improved considerably and the patient continues to have some subtle scattered opacities representing some residual pneumonia. Meanwhile, the patient remains on IV Rocephin and oral Zithromax. Remains on IV Solu-Medrol. Remains on DuoNeb nebulized treatments [id number]. Denies having any specific complaints. Doing better. No pleurisy. No hemoptysis. No tachypnea. Objective - Vital Signs Vital signs: Vital Signs Temp 98.0 F 08/23/24 12:30 Pulse 87 08/23/24 12:30 Resp 18 08/23/24 12:30 BP 174/87 08/23/24 12:30 Pulse Ox 97 08/23/24 12:30 FiO2 40 08/21/24 09:49 Intake & Output 08/22/24 08/23/24 08/23/24 18:59 06:59 18:59 Intake Total 540 Balance 540 Weight 62 kg Intake: Oral 540 Other: Voiding Method Toilet Toilet Toilet # Voids 2 2 # Bowel Movements 1 - Exam GENERAL EXAM: Alert, 74-year-old female, the patient seems to be less short of breath and currently she is on 2 L O2 nasal cannula HEAD: Normocephalic and atraumatic EYES: Normal reaction of pupils, equal size. NOSE: Clear with pink turbinates. THROAT: No erythema or exudates. NECK: No masses, no JVD. CHEST: No chest wall deformity. LUNGS: Equal air entry with no crackles, wheeze, rhonchi or dullness. CVS: S1 and S2 normal with no audible murmur, regular rhythm. No extra heart sounds ABDOMEN: No hepatosplenomegaly, active bowel sounds, no guarding or rigidity. SPINE: No scoliosis or deformity SKIN: No rashes CENTRAL NERVOUS SYSTEM: No focal deficits, tone is normal in all 4 extremities. EXTREMITIES: There is no peripheral edema, clubbing, or cyanosis. Peripheral pulses are intact. - Labs CBC & Chem 7: 08/22/24 07:00 08/22/24 07:00 Labs: Microbiology - Last 24 Hours (Table) 08/20/24 14:30 Gram Stain - Final Sputum Sputum Culture - Final Assessment and Plan Assessment: Acute hypoxemic respiratory failure, initially the patient was on BiPAP therapy and the patient is currently on 2 L O2 nasal cannula, and the patient is stable without having any major respiratory difficulties. Bilateral groundglass pulmonary infiltrates, extensive involving the upper and lower lobes bilaterally. Consider atypical pneumonia. There is also background COPD as noted. The viral screen was negative at time of admission and the general urine antigen was also negative. The patient remains on a combination of Rocephin and Zithromax. Chest x-ray was noted and the patient has bilateral breast implants which is somewhat obscuring the underlying pulmonary infiltrates. Nevertheless, clinically patient is improving. Chest x-ray also shows continued improvement in the bilateral pulmonary filtrates with some residual scattered infiltrates noted on today's chest x-ray of 08/23/2024. Acute leukocytosis, improving slowly Current ongoing tobacco dependence, over [id number] history Obstructive sleep apnea with home CPAP Hypertension History of kyphoplasty GERD Anxiety Plan: Clinically much improved and the chest x-ray is also improved considerably. Still requiring oxygen the patient continues to desaturate on room air oxygen. For that reason, the patient will be kept for another 24 hours. Patient is currently 2 L of oxygen by nasal cannula, wean down FiO2 as tolerated, and monitor the patient's oxygenation. Consider transitioning this patient to room air oxygen depending on her overall oxygenation. Chest x-ray is improved Continue DuoNeb nebulized treatments [id number] Continue Perforomist and Pulmicort nebulized treatments twice a day Continue IV Solu-Medrol, will switch to a prednisone burst taper within the next 24 hours Continue IV Rocephin and Zithromax 500 mg p.o. daily Check urine Legionella antigen was negative Viral screen negative for influenza A/B, RSV, COVID CAT scan of the chest was noted and discussed with the patient Incentive spirometer increase mobility Clinically improving and will continue to follow. Possible discharge within next 24 hours and the patient can be discharged once oxygenation improves. Time with Patient: Greater than 30
[2024-08-24 12:44] VITALS: BP 156/77; PULSE 98; RESP 20; TEMP 98.2
--- NOTE | 2024-08-24 12:54 | P.PN ---
Subjective Progress Note Date: 08/24/24 Patient is a 74-year-old female with past medical history significant for hypertension, current ongoing tobacco dependence, obstructive sleep apnea with home CPAP, anxiety. Presented to the emergency department yesterday afternoon with chief complaint of difficulty in breathing. Developing over the last 24-36 hours. Pulse oximeter reportedly reading 70s. Workup in the ED including a chest x-ray remarkable for bilateral hilar infiltrates. Labs including a CBC with a WBC count of 13.6. Hemoglobin 13.7 g/dL. Platelets 249. D-dimer 0.61. CMP unremarkable, electrolytes WDL, creatinine 0.53, glucose 102. Troponin less than 0.012. NT proBNP 1580. Viral screen negative for influenza A/B, RSV, CO VID. Patient currently being evaluated in the emergency department. On BiPAP with settings 12/6 and FiO2 of 40%. Mildly tachypneic, however, not in any distress. Able to carry out conversation. Endorsing shortness of breath progressing rapidly over the last 24 to 36 hours. Associated persistent dry cough and chest tightness. No sputum production or hemoptysis. Denies any nausea, vomiting, diarrhea. No fevers/chills. No notable sick contacts. Did have recent airplane travel, returned from [place] approximately 2 weeks ago. Feeling relatively well up until 24-36 hours ago. Denies any chest pain, heart palpitations, lightheadedness or syncopal events, lower extremity edema. No history of DVT/PE. Denies history of known COPD or asthma. She does not use any inhalers at home. She does smoke 1/2 pack of cigarettes per day and has done so for over 40 years. Previously started on azithromycin and Rocephin in the ED. Also being treated for COPD exacerbation, receiving DuoNebs arou [id number] and IV Solu-Medrol. 08/18/2024, the patient is being seen for a follow-up. The patient is still on the BiPAP at pressures of 13 over 6 cm of water. The patient is comfortable. Slightly tachypneic. Denies having any chest pain. No significant cough or sputum production. The white seconds at 19.2 with a hemoglobin of 11.4 and a platelet count of 271. BUN is 20 with a creatinine of 0.5. Sodium levels at 135. Viral screen was negative. Legionella urine antigen was negative. Hemodynamically stable. Remains on bronchodilators and IV Solu-Medrol Remains on IV Rocephin. 08/19/2024, the patient is being seen for a follow-up. The patient is feeling better. The patient is currently off BiPAP and she is still hypoxic range between 5 to 6 L of oxygen by nasal cannula. Based on the reported abnormalities on chest x-ray, a CT of the chest was ordered and the patient was found to have diffuse groundglass opacities bilaterally consistent with atypical pneumonia. Noted the viral screen was negative at the time of admission. Nevertheless, the patient is feeling better. She feels less short of breath. The white cell count is 15.4 and hemoglobin is at 11.7 and the platelet count of 269. BUN is 28 with a creatinine of 0.56 and a sodium noted at 136. Legionella urine antigen was negative at time of admission. Remains on DuoNeb updrafts. Remains on Perforomist and Pulmicort and remains on IV Solu-Medrol. Antibiotic coverage is with IV Rocephin. Will add Zithromax again regarding the atypical nature of this bilateral pneumonia. 08/20/2024, the patient is being seen for a follow-up. The patient is doing well. She feels less short of breath. She remains hypoxic and her oxygen requirements have improved and the patient is currently on 40 Suboxone by nasal cannula. CAT scan of the chest was noted from yesterday and the patient has bilateral pulmonary infiltrates consistent with pneumonia and the patient remains on a combination of Rocephin and Zithromax. Consider the possibility of an atypical pneumonia. The white cell count 14.3 with a hemoglobin 11.7 and platelet count of 235. BUN is 23 with a creatinine of 0.33. Electrolytes all within normal limits. Remains on DuoNeb treatments [id number]. Remains on IV Solu-Medrol. Remains on Lovenox for DVT prophylaxis. Cultures have been negative including blood cultures. 08/21/2024, seen the patient for a follow-up. The patient is calm and comfortable. The patient is feeling less short of breath. Oxygenation continues to improve and the patient is currently on 2 L of oxygen by nasal cannula pulse ox of 95%. The patient had bilateral pulmonary infiltrates confirmed on a CAT scan of the chest. Chest x-ray continues to show similar infiltrates. Clinically however, the patient is improving. The patient remains on IV Rocephin. She is also on Zithromax 5 mg p.o. daily for atypical coverage. Bronchodilators remain unchanged. The patient remains on IV Solu-Medrol 60 mg every 6 hours. The white cell count is at 10 with a hemoglobin of 11.6 and a platelet count of 242. BUN 16 with a creatinine of 0.3. Sodium levels at 132 and a potassium level is at 3.2. Stool for C. difficile has been negative On 08/14/2024, the patient continues to improve. No new complaints. The patient is currently on 2 L of oxygen by nasal cannula to maintain an oxygen saturation above 90%. His most recent pulse ox is 94%. Able to speak in full sentences. No chest pain. No pleurisy. No hemoptysis. Clinically improving and on today's blood work, the patient's white cell count is 11.3 with a hemoglobin 11.8 and a platelet count of 244. BN is 19 with a creatinine of 0.4. Sodium l evels at 131. Stool for C. difficile has been negative. Remains on DuoNeb nebulizer treatments [id number]. Remains on Rocephin and Zithromax. Remains on Lovenox for DVT prophylaxis. Remains on IV Solu-Medrol 60 mg every 6 hours. Rest of the medications are essentially unchanged. On 08/23/2024, the patient is doing extremely well. She remains on 2 L of oxygen by nasal cannula. Pulse ox 95%. She is still desaturating on room air oxygen. Nevertheless, follow-up chest x-ray was done this was compared to the original chest x-ray and overall, the patient has improved considerably and the patient continues to have some subtle scattered opacities representing some residual pneumonia. Meanwhile, the patient remains on IV Rocephin and oral Zithromax. Remains on IV Solu-Medrol. Remains on DuoNeb nebulized treatments [id number]. Denies having any specific complaints. Doing better. No pleurisy. No hemoptysis. No tachypnea. The patient is seen today August 24, 2024 in follow-up on the regular medical floor. She is currently sitting up in bed. Awake and alert in no acute distress. Breathing easier today compared to yesterday. She denies any worsening shortness of breath, cough or congestion. She is maintaining good O2 saturations in the 90s on 2 L/min per nasal cannula. She is afebrile. Hemodynamically stable. Blood culture revealed no growth. Sputum culture revealed no growth. No new labs today. She remains on DuoNeb inhalations, Pulmicort and Perforomist inhalations, IV Solu-Medrol. NicoDerm patch in place. Remains on ceftriaxone. Lovenox for DVT prophylaxis. Objective - Vital Signs Vital signs: Vital Signs Temp 98.2 F 08/24/24 12:16 Pulse 98 08/24/24 12:16 Resp 20 08/24/24 12:16 BP 156/77 08/24/24 12:16 Pulse Ox 93 L 08/24/24 12:16 FiO2 40 08/21/24 09:49 Intake & Output 08/23/24 08/24/24 08/24/24 18:59 06:59 18:59 Intake Total 1320 580 Balance 1320 580 Intake: Oral 1320 580 Other: Voiding Method Toilet Toilet Toilet # Voids 3 2 - Exam GENERAL EXAM: Alert, active, pleasant 74-year-old female, on 2 L nasal cannula, comfortable in no apparent distress. HEAD: Normocephalic. EYES: Normal reaction of pupils, equal size. NOSE: Clear with pink turbinates. THROAT: No erythema or exudates. NECK: No masses, no JVD. CHEST: No chest wall deformity. LUNGS: Equal air entry with few scattered rhonchi. CVS: S1 and S2 normal with no audible murmur, regular rhythm. ABDOMEN: No hepatosplenomegaly, normal bowel sounds, no guarding or rigidity. SPINE: No scoliosis or deformity SKIN: No rashes CENTRAL NERVOUS SYSTEM: No focal deficits, tone is normal in all 4 extremities. EXTREMITIES: There is no peripheral edema. No clubbing, no cyanosis. Peripheral pulses are intact. - Labs CBC & Chem 7: 08/22/24 07:00 08/22/24 07:00 Assessment and Plan Assessment: Acute hypoxemic respiratory failure, initially on BiPAP therapy and currently on 2 L O2 nasal cannula, stable without having any major respiratory difficulties. Bilateral groundglass pulmonary infiltrates, extensive involving the upper and lower lobes bilaterally. Consider atypical pneumonia. There is also background COPD as noted. The viral screen was negative at time of admission and the general urine antigen was also negative. The patient remains on a combination of Rocephin and Zithromax. Chest x-ray was noted and the patient has bilateral breast implants which is somewhat obscuring the underlying pulmonary infiltrates. Nevertheless, clinically patient is improving. Chest x-ray also shows continued improvement in the bilateral pulmonary filtrates with some residual scattered infiltrates noted on today's chest x-ray of 08/23/2024. Acute leukocytosis, improving slowly Current ongoing tobacco dependence, over [id number] history Obstructive sleep apnea with home CPAP Hypertension History of kyphoplasty GERD Anxiety Plan: The patient was seen and evaluated Medications reviewed Improved on 2 L nasal cannula Evaluate for possible home oxygen Could be discharged today Transition to a prednisone taper Continue Symbicort Continue albuterol HFA Educated regarding complete smoking cessation NicoDerm patch remains in place Follow-up in our office in 1 week This patient was seen independently by the pulmonary nurse practitioner addressing pulmonary issues I have personally seen and examined the patient, performed the documentation and the assessment and plan as written. Number of minutes spent on the visit: 23 Dictation was produced using [employer] dictation software. Please excuse any grammatical, word or spelling errors.
--- NOTE | 2024-08-24 14:46 | P.DS ---
Providers Date of admission: 08/16/24 14:00 Attending physician: Demarcus Chew Consults: 08/16/24 14:02 Consult Physician Routine Consulting Provider: Peter Wiseman Consult Reason/Comments: Pneumonia bilaterally Do you want consulting provider notified?: Yes Primary care physician: Josh Alba [facility] Course: Discharge Diagnosis: Acute hypoxic respiratory failure and sepsis secondary to multifocal pneumonia and underlying COPD Hypertension Anxiety, depression GERD Nicotine dependence [facility] Course: 74-year-old female with a past medical history hypertension, hyperlipidemia, anxiety, COPD with continued nicotine dependence, and obstructive sleep apnea CPAP dependent. She presented to our facility with a chief complaint of shortness of breath. Upon arrival to our facility, patient underwent evaluation in the emergency department. Vital signs upon arrival show BP 129/78, HR 103, RR 26, T 98.3 F, and SpO2 of 79% on RA. EKG completed showing normal sinus rhythm at 93 bpm with T wave inversion in lateral lead aVL. Chest x-ray consistent with bilateral multifocal pneumonia. CBC showing leukocytosis with WBC count of 13.60, immature granulocytes of 0.07, and neutrophils of 12.12. BMP showing mild hyponatremia with sodium of 134 otherwise normal findings. Blood glucose 102. Lactic acid 1.4. Calcium 9.6. Magnesium 1.9. Liver profile showing elevated AST otherwise normal findings. Troponin was negative at less than 0.012 and proBNP was 1580. D-Dimer was slightly elevated at 0.61 but normal with age correction. Patient was started on bronchodilators, steroids, IV Rocephin/Azithromycin and admitted for further workup and management. Pulmonary consulted. Intermittently used BiPAP. CT chest showed diffuse ground glass opacities bilaterally. Echo s howed EF 60-65%. She did have significant diarrhea on 08/20, C. diff was negative, started on Imodium and probiotics, now improved. : Seen examined at bedside, no acute events overnight, breathing significantly improved, patient did not qualify for home oxygen, was cleared for discharge by pulmonology. She will be discharged on Symbicort inhaler, albuterol nebulization, prednisone taper, follow-up with primary care physician, follow-up with pulmonology in 1 week. Smoking cessation information provided. Patient seen and examined at bedside. Vital signs reviewed and stable. General: Nontoxic, no distress, appears at stated age Derm: Warm, dry Head: Atraumatic, normocephalic, symmetric Eyes: EOMI, no lid lag, anicteric sclera Mouth: No lip lesion, mucus membranes moist Cardiovascular: S1S2 reg, no murmur Lungs: CTA bilateral, no rhonchi, no rales, no accessory muscle use Abdominal: Soft, nontender to palpation, no guarding, no appreciable organomegaly Ext: No gross muscle atrophy, no edema, no contractures Neuro: CN II-XI grossly intact, no focal neuro deficits Psych: Alert, oriented, appropriate affect A total of 38 minutes of time were spent preparing this complex discharge summary. Patient was discharged on 08/24/2024. Plan - Discharge Summary Discharge Rx Participant: No New Discharge Prescriptions: New Albuterol Nebulized [Ventolin Nebulized] 2.5 mg INHALATION Q4H 8 Days #150 ml Budesonide-Formot 160-4.5 Mcg [Symbicort 160-4.5 Mcg Inhaler] 2 puff INHALATION BID #2 each predniSONE See Taper PO DIRECTED #28 tab Albuterol Inhaler [Ventolin Hfa Inhaler] 1 - 2 puff INHALATION Q6H PRN #1 each PRN Reason: Shortness Of Breath Continue dilTIAZem HCL [dilTIAZem HCL 24Hr ER] 180 mg PO DAILY FLUoxetine HCL [PROzac] 40 mg PO DAILY Ibuprofen [Motrin] 800 mg PO TID PRN PRN Reason: Pain Famotidine 40 mg PO DAILY Varenicline [Chantix Starter Pack] See Taper PO DIRECTED Pantoprazole [Protonix] 40 mg PO DAILY Benazepril HCl 40 mg PO DAILY Discharge Medication List dilTIAZem HCL [dilTIAZem HCL 24Hr ER] 180 mg PO DAILY 01/27/20 [History] Famotidine 40 mg PO DAILY 10/30/22 [History] Benazepril HCl 40 mg PO DAILY 08/16/24 [History] FLUoxetine HCL [PROzac] 40 mg PO DAILY 08/16/24 [History] Ibuprofen [Motrin] 800 mg PO TID PRN 08/16/24 [History] Pantoprazole [Protonix] 40 mg PO DAILY 08/16/24 [History] Varenicline [Chantix Starter Pack] See Taper PO DIRECTED 08/16/24 [History] Albuterol Inhaler [Ventolin Hfa Inhaler] 1 - 2 puff INHALATION Q6H PRN #1 each 08/24/24 [Rx] Albuterol Nebulized [Ventolin Nebulized] 2.5 mg INHALATION Q4H 8 Days #150 ml 08/24/24 [Rx] Budesonide-Formot 160-4.5 Mcg [Symbicort 160-4.5 Mcg Inhaler] 2 puff INHALATION BID #2 each 08/24/24 [Rx] predniSONE See Taper PO DIRECTED #28 tab 08/24/24 [Rx] Follow up Appointment(s)/Referral(s): Josh Alba MD [Primary Care Provider] - 1-2 days (Please call and make follow up appointment.) Chip Smith MD [STAFF PHYSICIAN] - 09/04/24 9:45 am Patient Instructions/Handouts: Prednisone (By mouth), How to Stop Smoking (DC), How to Use a Nebulizer (DC), Bacterial Pneumonia (DC) Discharge Disposition: HOME SELF-CARE
== END 2024-08-24 15:57 | disposition home or self-care (01) | DRG 871 ==
LOC: EC 11:40 → 4SSUR 14:00 → 3SCARD 16:22 → 5NMEDONC 08-22 05:08
PROVIDERS: ADMIT Student in an Organized Health Care Education/Training Program; ATTEND Student in an Organized Health Care Education/Training Program
DX: A41.9 Sepsis, unspecified organism (principal); J18.9 Pneumonia, unspecified organism; J96.01 Acute respiratory failure with hypoxia; J44.1 Chronic obstructive pulmonary disease with (acute) exacerbation; I10 Essential (primary) hypertension; F32.A Depression, unspecified; J44.0 Chronic obstructive pulmonary disease with (acute) lower respiratory infection; E87.1 Hypo-osmolality and hyponatremia; R65.20 Severe sepsis without septic shock; K21.9 Gastro-esophageal reflux disease without esophagitis; F17.210 Nicotine dependence, cigarettes, uncomplicated; F41.9 Anxiety disorder, unspecified; E78.5 Hyperlipidemia, unspecified; R19.7 Diarrhea, unspecified; G47.33 Obstructive sleep apnea (adult) (pediatric); Z79.899 Other long term (current) drug therapy; Z71.6 Tobacco abuse counseling
CPT/HCPCS: 36415; 71045; 71046; 71260; 80048; 80053; 82803; 83605; 83735; 83880; 84484; 85025; 85027; 85379; 85610; 85730; 87040; 87070; 87205; 87324; 87449; 87636; 93005; 93306; 94640; 94660; 94760; 96365; 96366; 96367; 96368; 96375; 96376; 99285

== ENCOUNTER → 2024-09-04 | Outpatient (CLI) | payer MEDICARE ==
--- NOTE | 2024-09-04 11:45 | XR ---
EXAMINATION TYPE: XR Hip LT and AP Pelvis DATE OF EXAM: 09/04/2024 11:32 AM INDICATION: Patient age:Female; 74 years old; Reason for study: M25.552 pain L hip; PHH. pain COMPARISON: None. TECHNIQUE: The left hip was examined in the frontal and lateral projections and a AP pelvis. FINDINGS: No evidence of any acute osseous pathology, joint dislocation, or soft tissue swelling. No significant osteoarthritic changes. IMPRESSION: No acute osseous pathology. [facility], , 09/04/2024 11:43 AM
== END | disposition home or self-care (01) ==
LOC: RADXRMAIN 11:10
PROVIDERS: ATTEND Internal Medicine Critical Care Medicine
DX: M25.552 Pain in left hip (principal)
CPT/HCPCS: 73502